=== PATIENT | male | born 1940 | race Caucasian/White ===

== ENCOUNTER 2018-08-31 23:47 | Inpatient (IN) ==
--- NOTE | 2018-09-01 01:06 | Emergency Department Note ---
Disposition Clinical Impression: Respiratory distress, SIRS (systemic inflammatory response syndrome) Pneumonia Qualifiers: Pneumonia type: due to unspecified organism Laterality: left Lung location: lower lobe of lung Qualified Code(s): J18.1 - Lobar pneumonia, unspecified organism Disposition: Admitted As Inpatient Condition: Critical Forms: ED Satisfaction Letter General Adult HPI - General Chief complaint: ED Fever Stated complaint: SoB/Fever Time Seen by Provider: 09/01/18 00:24 Source: family, EMS Limitations: altered mental status - History of Present Illness HPI Narrative: Pt was released from [facility] this afternoon after repair of leaking AAA graft. Daughter states he was talking, walking with a walker until they gave him a dose of Haldol on 08/01 and he has been in current unresponsive state since. He remains a full code. Has had numerous imaging studies over the last few weeks. Grew pseudomonas from his blood and urine per 's report. Released from [facility] to care home this afternoon. Last dose of Zosyn 2100. Sent here by ECF dt apparent clinical deterioration. Family states he is at his baseline mental status (new baseline since 08/01), no new neuro sx. they are insistent that he not be sent back to [facility], and seem to not want him to be sent back to the care home he came from today. Pain Scale: 0 - Related Data Home Medications Medication Instructions Recorded Confirmed Adalimumab [Humira] 40 mg SQ PER PKG DI 10/09/17 10/09/17 Apixaban [Eliquis] 10 mg PO BID 10/09/17 10/09/17 Atorvastatin [Lipitor] 10 mg PO HS 10/09/17 10/09/17 Cholecalciferol (Vitamin D3) 2,000 unit PO DAILY 10/09/17 10/09/17 [Vitamin D] Leflunomide [Arava] 10 mg PO DAILY 10/09/17 10/09/17 Lisinopril-HCTZ 10-12.5 [Prinzide 2 each PO DAILY 10/09/17 10/09/17 10-12.5] Metformin HCl [Fortamet] 500 mg PO BID 10/09/17 10/09/17 Metoprolol Tartrate [Lopressor] 25 mg PO BID 10/09/17 10/09/17 Multivit-Min/Iron Fum/Folic AC 1 each PO DAILY 10/09/17 10/09/17 [Qcxea-Aujzblf-Aegnykqe Tablet] NIFEdipine [Adalat cc] 90 mg PO DAILY 10/09/17 10/09/17 [place]-3/Dha/Epa/Fish Oil [Fish Oil 1 each PO DAILY 10/09/17 10/09/17 1,000 mg Softgel] Tamsulosin HCl [Flomax] 0.4 mg PO DAILY 10/09/17 10/09/17 cloNIDine HCl [CloNIDine HCl] 1.5 tab PO BID 10/09/17 10/09/17 predniSONE [PredniSONE] 7.5 mg PO DAILY 10/09/17 10/09/17 Allergies Allergy/AdvReac Type Severity Reaction Status Date / Time sulfamethoxazole Allergy See Verified 08/01/18 08:07 [From ] Comments trimethoprim [From ] Allergy See Verified 08/01/18 08:07 Comments morphine AdvReac See Verified 09/01/18 00:00 Comments Limitations: ROS unobtainable due to patients medical condition Past Medical History - Past Medical History Medical history: Reports: arthritis, DVT, diabetes, hypertension, other Surgical history: Reports: appendectomy, other (AAA repair) Psychiatric history: Reports: no psych history - Social History Smoking Status: Former smoker Smokeless Tobacco Status: No Alcohol use: Reports: none Drug use: Reports: none Physical Exam Vital signs noted please see nurse's notes. Gen.: Well-developed, ill patient lying in bed who is tahcypneic and not responsive. Head: Atraumatic, normocephalic. Eyes: Sclerae anicteric. ENT: Mucous membranes moist. Denitition poor. Heart: Tachycardic and regular without appreciable murmur. Neck: Tracheostomy with significant amount of yellowish output. RT called for saini ctioning. Lungs: Significant tachypnea is present. Coarse breath sounds b/l. Abdomen: Soft, no apparent tenderness, nondistended, no guarding or peritoneal signs. G-tube in place. Skin: Warm and dry. Neurologic: Unresonsive. Minimal movement of right hand, no movement of other extremities, baseline since 08/01 per family. Musculoskeletal: Diffuse peripheral edema. No signs of trauma or DVT. - General Limitations: altered mental status Course Vital Signs Temperature 98.4 F 09/01/18 00:00 Pulse Rate 94 09/01/18 00:00 Respiratory Rate 24 09/01/18 00:00 Blood Pressure 129/66 09/01/18 00:00 O2 Sat by Pulse Oximetry 97 09/01/18 00:00 Temperature 98.4 F 09/01/18 00:00 Pulse Rate 93 09/01/18 01:43 Respiratory Rate 28 09/01/18 01:43 Blood Pressure 136/71 09/01/18 01:43 O2 Sat by Pulse Oximetry 95 09/01/18 01:43 Oxygen Delivery Oxygen Delivery Trach Mask Medical Decision Making - Lab Data Result diagrams: 09/01/18 01:44 Lab Results 09/01/18 09/01/18 09/01/18 Range/Units 01:44 01:44 01:45 WBC 10.8 (4.3-11.1) K/mcL RBC 3.22 L (4.19-5.50) M/mcL Hgb 9.4 L (12.9-16.9) g/dL Hct 30.0 L (37.5-50.1) % MCV 93.2 (83.0-100.0) fL MCH 29.2 (28.0-33.3) pg MCHC 31.3 L (31.6-35.5) g/dL RDW 15.0 H (11.5-14.5) % Plt Count 249 (140-400) K/mcL MPV 9.6 (9.4-12.4) fL Immature Gran % 0.7 (0-4) % Seg Neutrophils % 77.6 % Lymphocytes % 9.4 % Monocytes % 9.6 % Eosinophils % 2.1 % Basophils % 0.6 % Neutrophils # 8.4 (1.6-8.9) K/mcL Lymphocytes # 1.0 (0.6-4.6) K/mcL Monocytes # 1.0 (0.0-1.3) K/mcL Eosinophils # 0.2 (0.0-0.6) K/mcL Basophils # 0.1 (0.0-0.2) K/mcL Lactic Acid 0.7 (0.5-2.2) mmol/L Urine Color Yellow (Yellow) Urine Clarity Cloudy A (Clear) Urine pH 6.0 (5.0-8.0) pH Units Ur Specific [place] 1.018 (1.010-1.025) Urine Protein 100 H (Neg-Trace) mg/dL Urine Glucose (UA) Normal (Normal) mg/dL Urine Ketones Negative (Negative) mg/dL Urine Blood Large H (Negative) Urine Nitrite Negative (Negative) Urine Bilirubin Negative (Negative) Urine Urobilinogen Normal (Normal) mg/dL Ur Leukocyte Esterase Moderate H (Negative) - EKG Data EKG #1 EKG attestation: Yes I reviewed and interpreted this EKG. EKG shows normal: sinus rhythm (rate 92, first degree AVB, mild QT prolongation. Two PVCs on EKG strip. No acute ischemia. )
[2018-09-01 02:01] LABS: Bilirubin,Urine Negative (Negative); Blood,Urine Large (Negative); Clarity,Urine Cloudy (Clear); Color,Urine Yellow (Yellow); Glucose,Urine (UA) Normal (Normal); Ketones,Urine Negative (Negative); Leukocyte Esterase,Urine Moderate (Negative); Nitrite,Urine Negative (Negative); Protein,Urine 100 mg/dL (Neg-Trace); Specific Gravity,Urine 1.018 (1.010-1.025); Urobilinogen,Urine Normal (Normal)
[2018-09-01 02:03] LABS: Bacteria,Urine None Seen per hpf (None-Few); Hyaline Casts,Urine None Seen per lpf (None-Few); RBC,Urine TNTC per hpf (0-3); Squamous Epithelial Cell,Urine Many per lpf (None-Few); WBC,Urine 15-30 per hpf (0-3)
[2018-09-01 02:03] LABS: Eosinophils % 2.1 %; Hemoglobin 9.4 g/dL (12.9-16.9); Immature Granulocytes % 0.7 % (0-4); Lymphocytes % 9.4 %; Mean Corpuscular HGB Conc 31.3 g/dL (31.6-35.5); Mean Corpuscular Hemoglobin 29.2 pg (28.0-33.3); Mean Corpuscular Volume 93.2 fL (83.0-100.0); Mean Platelet Volume 9.6 fL (9.4-12.4); Monocytes % 9.6 %; Platelet Count 249 K/mcL (140-400); Red Blood Count 3.22 M/mcL (4.19-5.50); Segmented Neutrophils % 77.6 %
[2018-09-01 02:04] LABS: Basophils # 0.1 K/mcL (0.0-0.2); Basophils % 0.6 %; Eosinophils # 0.2 K/mcL (0.0-0.6); Neutrophils # 8.4 K/mcL (1.6-8.9)
[2018-09-01] MEDS ORDERED: Levofloxacin 750 MG/150 ML 750 MG/150 ML BAG IVPB ONE (02:11)
[2018-09-01 02:20] LABS: Albumin 2.7 g/dL (3.5-5.7); Albumin/Globulin Ratio 0.8 (1.1-2.2); Bilirubin,Direct 0.2 mg/dL (0.0-0.2); Bilirubin,Indirect 0.3 mg/dL (0.0-1.2); Bilirubin,Total 0.5 mg/dL (0.3-1.0); Calcium 8.4 mg/dL (8.6-10.3); Globulin 3.5 g/dL (2.4-3.5); Magnesium 2.4 mg/dL (1.6-2.6); Potassium 3.5 mEq/L (3.5-5.1); Total Protein 6.2 g/dL (6.4-8.9)
[2018-09-01] MEDS ORDERED: Ondansetron 4 MG/2 ML VIAL IVP PRN (08:21)
[2018-09-01] MEDS ORDERED: Naloxone 0.4 MG/ML INJ IVP PRN (08:21)
--- NOTE | 2018-09-01 08:59 | Internal Med History&Physical ---
Date of Encounter: 09/01/18 Time of Encounter: 08:00 Internal Medicine - H&P: HPI Chief complaint: Altered mental status Admitted From: Long-term Nursing Facility Plans for Post Hospital Care: Transfer Strategy Consultant Care History of present illness: History is limited due to pt's clinical condition. Information was obtained from chart review and discussing with ED physician who saw the pt overnight. Mr. Busby is a 77 year old male, discharged to ECF from [facility] yesterday after being treated for leaking AAA graft complicated by pseudomonal infection, who presented to the ED with AMS. He is on trach collar and PEG tube feeding. His daughter states that patient was given Haldol at the nursing facility which seemed to be the triggering event. SInce then, patient was not responding appropriately and was breathing rapidly. No documented fever at the shelter. Patient is supposed to be on Zosyn at the ECF for pseudomonal infection. In the ED, he was afebrile and hemodynamically is stable but was breathing at the rate of 24-28. Workup showed borderline white blood cell count of 10.8, creatinine 1.6 which appears to be close to his baseline, and normal lactic acid. Urinalysis was positive for leukocyte esterase. CXR revealed new L lower airspace consolidation. There was a discussion on whether pt will need to be transferred to [facility] which family declined. Patient was started on vancomycin and Levaquin and admitted for further management. Past Med Surg Social Fam HX - Past Medical History Medical history: arthritis, DVT, diabetes, hypertension, other Additional medical history: AAA repair Psychiatric history: no psych history - Past Surgical History Surgical History: appendectomy, other (AAA repair) Additional surgical history: appy, AAA aneurysm repair - Social History Smoking Status: Former smoker Smokeless Tobacco Status: No Alcohol use: none Drug use: none - Additional Family History Additional family history: Unable to obtain due to his mental status Internal Medicine - H&P: Meds Abatacept [Orencia] 125 mg SQ QWEEK 09/01/18 [History] Alendronate Sodium 70 mg PO QWEEK 09/01/18 [History] Aspirin 81 mg PO DAILY 09/01/18 [History] Atorvastatin [Lipitor] 80 mg PO HS 09/01/18 [History] Carvedilol [Coreg] 25 mg PO BID 09/01/18 [History] Cholecalciferol (Vitamin D3) [Vitamin D] 2,000 unit PO DAILY 09/01/18 [History] Docusate [Colace] 100 mg GTUBE BID 09/01/18 [History] Esomeprazole Magnesium [Nexium] 40 mg PO DAILY 09/01/18 [History] Fluticasone Furoate [Arnuity Ellipta] 50 mcg IH BID 09/01/18 [History] Leflunomide [Arava] 10 mg PO DAILY 09/01/18 [History] Lisinopril-HCTZ 20-12.5 [Prinzide 20-12.5] 1 each PO DAILY 09/01/18 [History] Loratadine [Allergy Relief] 10 mg PO DAILY 09/01/18 [History] Modafinil [Provigil] 100 mg PO DAILY 09/01/18 [History] NIFEdipine [Nifedipine ER] 60 mg PO DAILY 09/01/18 [History] Nut.tx.impaired Renal Fxn,Soy [Nepro Carb Steady] 09/01/18 [History] Nystatin [Nystatin Suspension] 100,000 units PO QID 09/01/18 [History] [place]-3 Acid Ethyl Esters [Triklo] 1 gm PO BID 09/01/18 [History] Omeprazole [PriLOSEC] 40 mg PO DAILY 09/01/18 [History] Piperacillin Sodium/Tazobactam [Piperacil-Tazobact 4.5 gm Vial] 4.5 gm IV Q8HR 09/01/18 [History] amLODIPine [Norvasc] 10 mg PO DAILY 09/01/18 [History] cloNIDine HCl [CloNIDine HCl] 0.1 mg PO BID 09/01/18 [History] glipiZIDE [Glucotrol] 5 mg PO BID 09/01/18 [History] Allergy/AdvReac Type Severity Reaction Status Date / Time sulfamethoxazole Allergy See Verified 08/01/18 08:07 [From ] Comments trimethoprim [From ] Allergy See Verified 08/01/18 08:07 Comments morphine AdvReac See Verified 09/01/18 00:00 Comments ROS unobtainable: due to mental status All Systems PM: A 10-system review of systems was performed and is negative for pertinent findings except as documented above in the HPI. - Constitutional Vitals: Temp Pulse Resp BP Pulse Ox 99.2 F 88 28 142/76 97 09/01/18 02:58 09/01/18 08:30 09/01/18 08:30 09/01/18 08:30 09/01/18 08:30 Exam: General: Lethargic, moans to painful stimuli, mildly tachypneic HEENT: pupils sluggish but equal, round and reactive. Cardiovascular:Normal S1 & S2, No JVD. Pulse regular. Lungs: Diminished breath sound in left lower zone Abdomen:Soft, non-tender, no rigidity. PEG site appears unremarkable Extremities:No deformity or swelling Neurological: unable to examine due to mental status Skin: Normal color, no rash, no lesions. Pulses:Carotid and radial pulses normal +2. Rest of the physical exam is non contributory Internal Med - H&P Results - Labs CBC & Chem 7: 09/01/18 01:44 09/01/18 01:44 Labs: Short CBC 09/01/18 Range/Units 01:44 WBC 10.8 (4.3-11.1) K/mcL Hgb 9.4 L (12.9-16.9) g/dL Hct 30.0 L (37.5-50.1) % Plt Count 249 (140-400) K/mcL Neutrophils # 8.4 (1.6-8.9) K/mcL BMP 09/01/18 01:44 Sodium 136 Potassium 3.5 Chloride 99 Carbon Dioxide 27 BUN 66 H Creatinine 1.60 H Glucose 128 H Calcium 8.4 L Liver Function 09/01/18 Range/Units 01:44 Total Bilirubin 0.5 (0.3-1.0) mg/dL Direct Bilirubin 0.2 (0.0-0.2) mg/dL AST 25 (13-39) Units/L ALT 22 (7-52) Units/L Alkaline Phosphatase 78 (34-104) Units/L Albumin 2.7 L (3.5-5.7) g/dL Urine 09/01/18 Range/Units 01:45 Urine Color Yellow (Yellow) Urine Clarity Cloudy A (Clear) Urine pH 6.0 (5.0-8.0) pH Units Ur Specific [place] 1.018 (1.010-1.025) Urine Protein 100 H (Neg-Trace) mg/dL Urine Glucose (UA) Normal (Normal) mg/dL - Impressions ITS Impressions Chest X-Ray 09/01/18 01:01 IMPRESSION: 1. Left lower lobe airspace consolidation consistent with pneumonia. Follow-up imaging recommended to ensure resolution. 2. Hypoinflated lungs. 3. Mild cardiomegaly. D/ / Angelica Shearer MD / Angelica Shearer MD Interpreting Provider: Angelica Shearer MD - Assessment and Plan (1) Pneumonia Current Visit: Yes Status: Acute Assessment and plan: Presented with encephalopathy, x-ray finding consistent with left lower lobe PNA recently discharged from [facility] after being treated for leaking AAA graft and pseudomonal infection and was sent to shelter on IV Zosyn started on vanc/levaquin, will continue zosyn as well for extended pseudomonal coverage until cultures finalize strep/legionella ag blood/sputum cultures on 4L through trach collar, unsure of baseline. Wean as tolerated Qualifiers: Pneumonia type: due to unspecified organism Laterality: left Lung location: lower lobe of lung Qualified Code(s): J18.1 - Lobar pneumonia, unspecified organism (2) Acute metabolic encephalopathy Current Visit: Yes Status: Acute Assessment and plan: Likely due to the above (3) CKD (chronic kidney disease) stage 3, GFR 30-59 ml/min Current Visit: Yes Status: Chronic Assessment and plan: Creatinine appears to be at his baseline Avoid nephrotoxins Renally adjusted antibiotic dosing (4) S/P AAA (abdominal aortic aneurysm) repair Current Visit: Yes Status: Chronic Assessment and plan: s/p recent repair of leaking AAA graft obtain old records from [facility] (5) Hypertension Current Visit: Yes Status: Chronic Assessment and plan: resume norvasc and Coreg, holding off on nifeidpine (unsure why he is on both CCBs) will also monitor off prinzide and clonidine Qualifiers: Hypertension type: essential hypertension Qualified Code(s): I10 - Essential (primary) hypertension (6) Diabetes Current Visit: Yes Status: Chronic Assessment and plan: On glipizide at home, hold Dietitian consult for resuming PEG feeding low dose sliding scale Qualifiers: Diabetes mellitus type: type 2 Diabetes mellitus terminal makeup operator insulin use: unspecified terminal makeup operator insulin use status Diabetes mellitus complication status: with unspecified complications Qualified Code(s): E11.8 - Type 2 diabetes mellitus with unspecified complications (7) DVT prophylaxis Current Visit: Yes Status: Acute Assessment and plan: Sub-cutaneous heparin - Time Spent With Patient Total time spent is greater than 50% in coordination of care (as documented) at patient's floor/unit and/or counseling patient: Greater than 35 minutes
[2018-09-01] MEDS ORDERED: OMEGA ACID ETHYL ESTERS PO SCH (09:00)
[2018-09-01] MEDS ORDERED: Dextrose 4 GM Chewable Tablets PO PRN ×2 (09:08)
[2018-09-01] MEDS ORDERED: *HR* Dextrose 50 % in Water (Syg) 50 ML SYRINGE IVP PRN (09:08)
[2018-09-01] MEDS ORDERED: D5% in Water 1,000 ML IVC PRN (09:08)
[2018-09-01] MEDS: Piperacillin/Tazobactam 3.375 GM in 0.9 % Sodium Chloride Mini Bag 100 ML IVPB SCH ×2 (09:08→17:29)
[2018-09-01] MEDS: Aspirin 81 MG TAB.CHEW PO SCH (09:08)
[2018-09-01] MEDS ORDERED: Dextrose Gel 15 GM/37.5 ML TUBE PO PRN ×2 (09:08)
[2018-09-01] MEDS: Loratadine 10 MG TABLET PO SCH (09:09)
--- NOTE | 2018-09-01 11:52 | Pulmonology Consult Note ---
Date of Encounter: 09/01/18 Time of Encounter: 11:51 Past Med Surg Social Fam HX - Past Medical History Medical history: arthritis, DVT, diabetes, hypertension, other Additional medical history: AAA repair Psychiatric history: no psych history - Past Surgical History Surgical History: appendectomy, other (AAA repair) Additional surgical history: appy, AAA aneurysm repair - Social History Smoking Status: Former smoker Smokeless Tobacco Status: No Alcohol use: none Drug use: none Medications and Allergies Abatacept [Orencia] 125 mg SQ QWEEK 09/01/18 [History] Alendronate Sodium 70 mg PO QWEEK 09/01/18 [History] Aspirin 81 mg PO DAILY 09/01/18 [History] Atorvastatin [Lipitor] 80 mg PO HS 09/01/18 [History] Carvedilol [Coreg] 25 mg PO BID 09/01/18 [History] Cholecalciferol (Vitamin D3) [Vitamin D] 2,000 unit PO DAILY 09/01/18 [History] Docusate [Colace] 100 mg GTUBE BID 09/01/18 [History] Esomeprazole Magnesium [Nexium] 40 mg PO DAILY 09/01/18 [History] Fluticasone Furoate [Arnuity Ellipta] 50 mcg IH BID 09/01/18 [History] Leflunomide [Arava] 10 mg PO DAILY 09/01/18 [History] Lisinopril-HCTZ 20-12.5 [Prinzide 20-12.5] 1 each PO DAILY 09/01/18 [History] Loratadine [Allergy Relief] 10 mg PO DAILY 09/01/18 [History] Modafinil [Provigil] 100 mg PO DAILY 09/01/18 [History] NIFEdipine [Nifedipine ER] 60 mg PO DAILY 09/01/18 [History] Nut.tx.impaired Renal Fxn,Soy [Nepro Carb Steady] 09/01/18 [History] Nystatin [Nystatin Suspension] 100,000 units PO QID 09/01/18 [History] [place]-3 Acid Ethyl Esters [Triklo] 1 gm PO BID 09/01/18 [History] Omeprazole [PriLOSEC] 40 mg PO DAILY 09/01/18 [History] Piperacillin Sodium/Tazobactam [Piperacil-Tazobact 4.5 gm Vial] 4.5 gm IV Q8HR 02/27/19 [History] amLODIPine [Norvasc] 10 mg PO DAILY 09/01/18 [History] cloNIDine HCl [CloNIDine HCl] 0.1 mg PO BID 09/01/18 [History] glipiZIDE [Glucotrol] 5 mg PO BID 09/01/18 [History] Allergy/AdvReac Type Severity Reaction Status Date / Time sulfamethoxazole Allergy See Verified 08/01/18 08:07 [From ] Comments trimethoprim [From ] Allergy See Verified 08/01/18 08:07 Comments morphine AdvReac See Verified 09/01/18 00:00 Comments ROS unobtainable: due to mental status All Systems: The remainder of the systems were reviewed and are negative Physical Examination Vital Signs: Vital Signs, Last 4 Hours Pulse Resp BP Pulse Ox 09/01/18 11:06 90 141/74 95 09/01/18 09:25 90 26 132/72 96 09/01/18 08:30 88 28 142/76 97 Results - Laboratory Findings CBC and BMP: 09/01/18 01:44 09/01/18 01:44 Abnormal lab findings: Abnormal lab results RBC 3.22 M/mcL (4.19-5.50) L 09/01/18 01:44 Hgb 9.4 g/dL (12.9-16.9) L 09/01/18 01:44 Hct 30.0 % (37.5-50.1) L 09/01/18 01:44 MCHC 31.3 g/dL (31.6-35.5) L 09/01/18 01:44 RDW 15.0 % (11.5-14.5) H 09/01/18 01:44 BUN 66 mg/dL (8-23) H 09/01/18 01:44 Creatinine 1.60 mg/dL (0.70-1.30) H 09/01/18 01:44 Est GFR ( Amer) 51 (> 60) L 09/01/18 01:44 Est GFR (Non-Af Amer) 42 (> 60) L 09/01/18 01:44 BUN/Creatinine Ratio 41 (6-26) H 09/01/18 01:44 Glucose 128 mg/dL (70-105) H 09/01/18 01:44 Calculated Osmolality 303 (280-300) H 09/01/18 01:44 Calcium 8.4 mg/dL (8.6-10.3) L 09/01/18 01:44 Serum Total Protein 6.2 g/dL (6.4-8.9) L 09/01/18 01:44 Albumin 2.7 g/dL (3.5-5.7) L 09/01/18 01:44 Albumin/Globulin Ratio 0.8 (1.1-2.2) L 09/01/18 01:44 Urine Clarity Cloudy (Clear) A 09/01/18 01:45 Urine Protein 100 mg/dL (Neg-Trace) H 09/01/18 01:45 Urine Blood Large (Negative) H 09/01/18 01:45 Ur Leukocyte Esterase Moderate (Negative) H 09/01/18 01:45 Urine Microscopic RBC TNTC per hpf (0-3) H 09/01/18 01:45 Urine Microscopic WBC 15-30 per hpf (0-3) H 09/01/18 01:45 Ur Squamous Epith Cells Many per lpf (None-Few) H 09/01/18 01:45 Ur Culture Indicated? NO. (NO) A 09/01/18 01:45 - Microbiology Findings Microbiology Findings: Microbiology, Last 48 Hours 09/01/18 06:14 Sputum Culture - Final Sputum 09/01/18 01:40 Blood Culture - Preliminary Peripheral Venipuncture Culture is incubating and being continuously monitored for growth. Final report to follow. 09/01/18 01:44 Blood Culture - Preliminary Peripheral Venipuncture Culture is incubating and being continuously monitored for growth. Final report to follow. - Clinical Findings Intake & Output: Intake & Output 08/31/18 09/01/18 09/01/18 23:59 07:59 15:59 Intake Total 400 / 400 100 / 100 Balance 400 / 400 100 / 100 Weight 90.718 kg Consult Discharge Plan - Plan [facility]Primary Care Provider[facility] -
[2018-09-01] MEDS: Docusate Oral Soln 100 MG/10 ML UDC GTUBE SCH ×2 (12:50→21:07)
[2018-09-01] MEDS: Insulin LISPRO 300 UNITS/3 ML VIAL SQ SCH ×2 (12:50→17:55)
[2018-09-01] MEDS: FLUTICASONE FUROATE 50 MCG IH SCH ×2 (12:50→20:48)
[2018-09-01] MEDS: amLODIPine 5 MG TABLET PO SCH (12:59)
[2018-09-01] MEDS: Nystatin SUSP 5 ML UD.LIQ PO SCH ×4 (12:59→21:07)
[2018-09-01] MEDS: *HR* Heparin 5,000 UNIT/ML VIAL SQ SCH (17:57)
--- NOTE | 2018-09-01 20:23 | Electrocardiograph Report ---
[place] [id number] Test Date: 2018-09-01 Pat Name: Josh Busby Department: [id number] Room: 03 Gender: M Stud Driver: : 1940 Requested By: Basilio Porter Order Number: [id number] Reading MD: Lydia Cadet Measurements Intervals [place] Rate: 92 P: 10 RI: 215 QRS: -1 QRSD: 96 T: 89 QT: 395 QTc: 489 Interpretive Statements Sinus rhythm Multiform ventricular premature complexes Prolonged RI interval Borderline prolonged QT interval Electronically Signed On 09-01-2018 20:21:40 EST by Lydia Cadet
[2018-09-02] MEDS: Insulin LISPRO 300 UNITS/3 ML VIAL SQ SCH ×4 (01:09→18:12)
[2018-09-02] MEDS: Piperacillin/Tazobactam 3.375 GM in 0.9 % Sodium Chloride Mini Bag 100 ML IVPB SCH ×3 (02:07→18:10)
[2018-09-02 05:13] LABS: Basophils % 0.4 %; Eosinophils # 0.2 K/mcL (0.0-0.6); Eosinophils % 1.9 %; Hematocrit 26.4 % (37.5-50.1); Hemoglobin 8.2 g/dL (12.9-16.9); Immature Granulocytes % 1.3 % (0-4); Lymphocytes # 0.8 K/mcL (0.6-4.6); Lymphocytes % 7.9 %; Mean Corpuscular HGB Conc 31.1 g/dL (31.6-35.5); Mean Corpuscular Volume 93.3 fL (83.0-100.0); Mean Platelet Volume 9.4 fL (9.4-12.4); Monocytes # 0.9 K/mcL (0.0-1.3); Monocytes % 8.9 %; Neutrophils # 8.1 K/mcL (1.6-8.9); Platelet Count 214 K/mcL (140-400); Red Blood Count 2.83 M/mcL (4.19-5.50); Red Cell Distribution Width 14.7 % (11.5-14.5); Segmented Neutrophils % 79.6 %
[2018-09-02] MEDS: *HR* Heparin 5,000 UNIT/ML VIAL SQ SCH ×2 (05:17→18:11)
[2018-09-02 05:34] LABS: BUN/Creatinine Ratio 44 (6-26); Blood Urea Nitrogen 59 mg/dL (8-23); Calcium 8.1 mg/dL (8.6-10.3); Carbon Dioxide 28 mEq/L (23-29); Chloride 103 mEq/L (98-107); Glucose 153 mg/dL (70-105); Magnesium 2.3 mg/dL (1.6-2.6); Osmolality,Calculated 308 (280-300); Phosphorous 3.7 mg/dL (2.7-4.5); Potassium 3.6 mEq/L (3.5-5.1); Sodium 139 mEq/L (136-145); eGFR For Non-African Americans 52 (> 60)
[2018-09-02] MEDS: Docusate Oral Soln 100 MG/10 ML UDC GTUBE SCH ×2 (08:25→20:26)
[2018-09-02] MEDS: Nystatin SUSP 5 ML UD.LIQ PO SCH ×4 (08:25→20:26)
[2018-09-02] MEDS: Aspirin 81 MG TAB.CHEW PO SCH (08:26)
[2018-09-02] MEDS: (Leflunomide [Arava] 10 MG) PO SCH (08:26)
[2018-09-02] MEDS: Loratadine 10 MG TABLET PO SCH (08:26)
[2018-09-02] MEDS: amLODIPine 5 MG TABLET PO SCH (08:26)
[2018-09-02] MEDS: FLUTICASONE FUROATE 50 MCG IH SCH (08:26)
--- NOTE | 2018-09-02 09:21 | Internal Med Progress Note ---
<Kya Hinojosa R - Last Filed: 09/02/18 14:21> Hospitalist Progress Note - Encounter Date of Encounter: 09/02/18 Time of Encounter: 09:21 - Subjective Interval History: Pt without any events since admission. Sputum cx negative. BCx pending without growth to date. Currently on vanc, zosyn and levaquin for pseudomonal and MRSA c overage - consulting infectious disease for better abx management as Levaquin is not the best option for this patient s/p AAA repair with recent leakage. - Exam Vitals: Temp Pulse Resp BP Pulse Ox 98.1 F 79 20 163/84 98 09/02/18 06:53 09/02/18 08:00 09/02/18 08:00 09/02/18 08:00 09/02/18 08:00 Exam: Constitutional - no longer tachypnic. appears more comfortable. HEENT - PERRL. Neck - No palpable LAD Cardio - RRR. No audible murmurs. Respiratory - Rhonchi in LLL. No audible wheezing or rales in other lung [place]. Abdomen - soft, nontender to palpation. No rebound, guarding or rigidity. Extremities - No edema of extremities. Equal pulses. Skin - No visible rash. Warm and dry. Neuro - alert but not able to assess orientation. - Assessment and Plan (1) Pneumonia Current Visit: Yes Status: Acute Assessment and Plan: Presented to ED with change in mental status after DC from [facility] to an ECF Current treatment for pseudomonas after AAA repair with zosyn CXR in ER showed LLL pneumonia VS wnl, no signs of sepsis on admission Vanc and zosyn added Day 2 abx Strep/legionella ag negative BCx pending, sputum cx negative Currently on 4L via trach ID consulted due to abx coverage - Levaquin not optimal for pt s/p AAA graft (2) Acute metabolic encephalopathy Current Visit: Yes Status: Acute Assessment and Plan: AMS likely secondary to pneumonia vs hypercapnia/hypoxia Continue to monitor status (3) S/P AAA (abdominal aortic aneurysm) repair Current Visit: Yes Status: Chronic Assessment and Plan: Recent repair of AAA graft that was leaking Subsequent pseudomonal infection Currently on vanc, zosyn and levaquin ID consulted for better abx recs (4) CKD (chronic kidney disease) stage 3, GFR 30-59 ml/min Current Visit: Yes Status: Chronic Assessment and Plan: Creatinine 1.33 which appears to be at baseline Renally dose meds Avoid nephrotoxins (5) Diabetes Current Visit: Yes Status: Chronic Assessment and Plan: Hold home meds Low dose SSI Resume PEG feedings (6) Hypertension Current Visit: Yes Status: Chronic Assessment and Plan: Resume norvasc and coreg Holding other home BP meds Currently normotensive Continue to monitor and resume clonidine if needed DVT Prophylaxis: SQ Heparin - Time Spent with Patient Total time spent is greater than 50% in coordination of care (as documented) at patient's floor/unit and/or counseling patient: Internal Medicine: Result - Labs CBC & Chem 7: 09/02/18 04:44 09/02/18 04:44 Labs: Short CBC 09/02/18 Range/Units 04:44 WBC 10.2 (4.3-11.1) K/mcL Hgb 8.2 L (12.9-16.9) g/dL Hct 26.4 L (37.5-50.1) % Plt Count 214 (140-400) K/mcL Neutrophils # 8.1 (1.6-8.9) K/mcL BMP 09/02/18 04:44 Sodium 139 Potassium 3.6 Chloride 103 Carbon Dioxide 28 BUN 59 H Creatinine 1.33 H Glucose 153 H Calcium 8.1 L Consult Discharge Plan - Plan [facility]errals: [facility]Primary Care Provider[facility] - <Napoleon Yeager - Last Filed: 09/02/18 17:06> Hospitalist Progress Note - Encounter Date of Encounter: 09/02/18 - Exam Vitals: Temp Pulse Resp BP Pulse Ox 98.3 F 74 20 137/62 98 09/02/18 15:32 09/02/18 16:00 09/02/18 16:00 09/02/18 16:00 09/02/18 16:00 - Assessment and Plan (1) Sepsis Current Visit: Yes Status: Acute (2) Pneumonia Current Visit: Yes Status: Acute (3) S/P AAA (abdominal aortic aneurysm) repair Current Visit: Yes Status: Chronic (4) Hypertension Current Visit: Yes Status: Chronic (5) DVT prophylaxis Current Visit: Yes Status: Acute (6) Acute metabolic encephalopathy Current Visit: Yes Status: Acute (7) Diabetes Current Visit: Yes Status: Chronic (8) CKD (chronic kidney disease) stage 3, GFR 30-59 ml/min Current Visit: Yes Status: Chronic - Time Spent with Patient Total time spent is greater than 50% in coordination of care (as documented) at patient's floor/unit and/or counseling patient: Internal Medicine: Result - Labs CBC & Chem 7: 09/02/18 04:44 09/02/18 04:44 Labs: Short CBC 09/02/18 Range/Units 04:44 WBC 10.2 (4.3-11.1) K/mcL Hgb 8.2 L (12.9-16.9) g/dL Hct 26.4 L (37.5-50.1) % Plt Count 214 (140-400) K/mcL Neutrophils # 8.1 (1.6-8.9) K/mcL BMP 09/02/18 04:44 Sodium 139 Potassium 3.6 Chloride 103 Carbon Dioxide 28 BUN 59 H Creatinine 1.33 H Glucose 153 H Calcium 8.1 L - Attending Attestation I examined this patient and my medical decision-making was reviewed with the Resident Physician on 09/02/18. I agree with the documented findings, disposition and treatment plan as described except to the extent set forth below. Mr Busby is currently admitted for pneumonia and acute metabolic encephalopathy. He remains moderate to high risk due to potential for worsening clinical status. Mr Busby is resting in bed. He is being evaluated by ID. No current fever or chills. Isolation discontinues - pseudomonas is pansensitive. Exam alert Comfortable in bed Mucus membranes dry Heart not tachy Diminished breath sounds. Rhonchi present Abd soft No rash noted. I/P 1. Sepsis related to pneumonia - hx of pseudomonas - Improving. Appreciate ID input. Continue Zosyn and Vanc 2. Pneumonia 3. RUE swelling - r/o DVT 4 Acute metabolic encephalopathy - monitoring. Prior work up negative 5. DM 6. HTN Further diagnoses and plan as above. 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 (6) Hypertension Qualifiers: Hypertension type: essential hypertension Qualified Code(s): I10 - Essential (primary) hypertension <Napoleon Yeager - Last Filed: 09/02/18 17:06> (1) Sepsis Qualifiers: Sepsis type: Pseudomonas Qualified Code(s): A41.52 - Sepsis due to Pseudomonas (2) Pneumonia Qualifiers: Pneumonia type: due to Pseudomonas Laterality: left Lung location: lower lobe of lung Qualified Code(s): J15.1 - Pneumonia due to Pseudomonas (4) Hypertension Qualifiers: Hypertension type: essential hypertension Qualified Code(s): I10 - Essential (primary) hypertension (7) Diabetes Qualifiers: Diabetes mellitus type: type 2 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
--- NOTE | 2018-09-02 15:29 | Infectious Disease Consult ---
Date of Encounter: 09/02/18 Time of Encounter: 15:12 Assessment and Plan (1) Sepsis Status: Acute Assessment and plan: The patient had 2 sepsis criteria on admission. Likely secondary to pneumonia versus right upper extremity cellulitis. Improved. White blood cell count remains normal. Tachycardia and tachypnea Resolved. Blood cultures drawn 09/01/18 are pending 2 sets. Recommendations: Await blood cultures. Recommend DVT study of the right upper extremity. Check respiratory infectious panel. Repeat sputum culture. Check MRSA screen. Continue vancomycin IV. Pharmacy to dose. Goal trough approximately 15. Continue Zosyn 3.375 g IV every 8 hours. Discontinue Levaquin. Duration of treatment depends on the clinical picture. Monitor renal function and for drug toxicity and dose adjust antibiotics. Discontinue contact and droplet precautions. Pseudomonas isolated at [facility] was pansensitive. Qualifiers: Sepsis type: Pseudomonas Qualified Code(s): A41.52 - Sepsis due to Pseudomonas (2) Pneumonia Status: Acute Assessment and plan: Causative organism: Unclear. Previous BAL and sputum cultures at [facility] were positive for pseudomonas and MSSA. Chest x-ray shows a left lower lobe consolidation consistent with pneumonia. Urinary antigen tests were negative. Sputum culture was contaminated. Currently on vancomycin, Zosyn, and Levaquin. Qualifiers: Pneumonia type: due to Pseudomonas Laterality: left Lung location: lower lobe of lung Qualified Code(s): J15.1 - Pneumonia due to Pseudomonas (3) Cellulitis Status: Suspected Assessment and plan: Location: Right upper extremity. Cellulitis versus DVT versus other. The patient did have an IV in his arm and was receiving IV antibiotics there prior to admission. Consider DVT study. If fails to improve with IV antibiotics, consider CT of the right upper extremity. Currently on vancomycin and Zosyn. Qualifiers: Site of cellulitis: extremity Laterality: right Qualified Code(s): L03.113 - Cellulitis of right upper limb (4) Acute kidney injury Status: Acute Assessment and plan: Likely secondary to sepsis. Unsure baseline. Continue to trend. Monitor renal function and does just antibiotics. Avoid nephrotoxins as able. (5) Acute metabolic encephalopathy Status: Acute Assessment and plan: Ongoing for the last month. Extensive workup at [facility] including MRI, EEG, and CT were negative for etiology. CVA versus anoxic brain injury versus other. Continue to monitor closely. (6) Bacteremia Status: Resolved Assessment and plan: Blood cultures drawn 2/23/19 at [facility] were +2 out of 2 sets for pansensitive pseudomonas. Repeat blood cultures drawn 08/31/18 are no growth to date. Was discharged to ECF on Zosyn 4.5 g IV every 8 hours. Currently on IV Levaquin and Zosyn. (7) CKD (chronic kidney disease) stage 3, GFR 30-59 ml/min Status: Chronic (8) Diabetes Status: Chronic Assessment and plan: Recommend strict glucose control per the primary team. Qualifiers: Diabetes mellitus type: type 2 Diabetes mellitus jail insulin use: with meterman use Diabetes mellitus complication status: with unspecified co mplications Qualified Code(s): E11.8 - Type 2 diabetes mellitus with unsp ecified complications; Z79.4 - custodial (current) use of insulin (9) Hypertension Status: Chronic Qualifiers: Hypertension type: essential hypertension Qualified Code(s): I10 - Essential (primary) hypertension (10) S/P AAA (abdominal aortic aneurysm) repair Status: Chronic Assessment and plan: Status post EVAR in 2013. Status post emergent endovascular repair of ruptured AAA with aortic cuff and right groin cutdown for delivery of device 08/01/18 at [facility]. Infectious Disease HPI - Data of Consult Patient: new to practice Consult date: 09/02/18 Requesting Physician: Napoleon Yeager DO Primary Care Provider: PCP [facility] - Consult Narrative Reason for consult: pneumonia, recent pseudomonal infection s/p AAA repair History of present illness: Mr. Busby is a 77 year old male with a past medical history of DVT, DM, HTN, AAA status post EVAR in 2013 with emergent endovascular repair of ruptured AAA with aortic cuff and right groin cut down for delivery of device 08/01/18 at [facility]. He was admitted to the hospital 09/01/18 respiratory distress, pneumonia, and sepsis. We are consulted 09/02/18 for antibiotic recommendations for recent Pseudomonas infection status post AAA repair. Briefly, the patient 77-year-old male with past medical history as stated above. The patient's mental status precludes his ability to provide me with any information leading up to the events of this hospitalization, therefore, most of the information is obtained from the medical record and his family history at the bedside. Apparently, the patient had emergent repair of a ruptured AAA back in July. Postop, he was doing well until postop day 2 when he became encephalopathic requiring emergent intubation and workup for stroke, which was negative. He underwent tracheostomy on 08/12/18. On 08/25/18 a PEG tube was placed. He was able to wean from the vent and transitioned to trach mask on 08/26/18. During his hospitalization, he was noted to have Pseudomonas bacteremia, pseudomonas UTI, and pseudomonas and MSSA pneumonia. He was discharged to a local extended care facility with a chronic indwelling Al catheter and rectal tube on 08/31/18 to complete a course of IV Zosyn. Upon arrival to the [facility], he was noted to be tachypneic and febrile and was transferred to our ER for evaluation. Upon arrival, he was afebrile. He was tachycardic and tachypneic. White blood cell count was normal. He had an acute kidney injury with a creatinine of 1.6. Lactic acid and LFTs were normal. Urinalysis appeared contaminated. Chest x-ray showed a left lower lobe pneumonia. Blood cultures were obtained 2 sets. He was started empirically on IV antibiotics and admitted to the hospital for further evaluation. Since admission, the patient has remained afebrile. Tachycardia and tachypnea have resolved. White blood cell counts remain normal. Acute kidney injury is improved. He continues to have some liquid stool per his rectal tube. Left groin access site wound culture has been obtained and is pending. Currently, he is on vancomycin, Levaquin, and Zosyn. We have been asked to evaluate and make further recommendations. During my exam today, the patient's family endorses a history as stated above. They tell me that he had a fever of 99 at the shelter and appeared to be in respiratory distress sitting transferred back to the ER. They tell me that since postop day 2, the patient has remained relatively unresponsive with minimal eye opening, but no purposeful movement of his extremities. The patient is unable to provide any review of systems information. CC: Napoleon Yeager, DO Past Med Surg Social Fam HX - Past Medical History Attestation: Yes The following information was validated with the patient. Source: old records reviewed, obtained from family, nursing notes reviewed Medical history: arthritis, DVT, diabetes, hypertension, other Additional medical history: AAA repair Psychiatric history: no psych history - Past Surgical History Surgical History: appendectomy, other Additional surgical history: appy, AAA aneurysm repair - Social History Smoking Status: Former smoker Smokeless Tobacco Status: No Alcohol use: none Drug use: none Occupational status: retired Current living situation: ECF Activity Level: Bed bound Recent Out of Country Travel Within the Last 8 Weeks: No Exposure or Possible Exposure to Illness During Travel: No Infectious Disease-CN:Meds Abatacept [Orencia] 125 mg SQ QWEEK 09/01/18 [History] Atorvastatin [Lipitor] 80 mg PO HS 09/01/18 [History] Carvedilol [Coreg] 25 mg PO BID 09/01/18 [History] Cholecalciferol (Vitamin D3) [Vitamin D] 2,000 unit PO DAILY 09/01/18 [History] Esomeprazole Magnesium [Nexium] 40 mg GTUBE DAILY 09/01/18 [History] Fluticasone Furoate [Arnuity Ellipta] 1 spr NS BID 09/01/18 [History] Leflunomide [Arava] 10 mg PO DAILY 09/01/18 [History] Loratadine [Allergy Relief] 10 mg PO DAILY 09/01/18 [History] Modafinil [Provigil] 100 mg GTUBE DAILY 09/01/18 [History] NIFEdipine [Nifedipine ER] 60 mg PO DAILY 09/01/18 [History] Nystatin [Nystatin Suspension] 500,000 units PO QID 09/01/18 [History] Nitro-3 Acid Ethyl Esters [Triklo] 1 gm PO BID 09/01/18 [History] Omeprazole [PriLOSEC] 40 mg PO DAILY 09/01/18 [History] Piperacillin Sodium/Tazobactam [Piperacil-Tazobact 4.5 gm Vial] 4.5 gm IV Q8HR 09/01/18 [History] RX: Alendronate Sodium 70 mg PO QWEEK 09/01/18 [History] RX: Aspirin 81 mg GTUBE DAILY 09/01/18 [History] RX: Docusate [Colace] 100 mg GTUBE BID 09/01/18 [History] RX: cloNIDine HCl [CloNIDine HCl] 0.1 mg PO BID 09/01/18 [History] amLODIPine [Norvasc] 10 mg PO DAILY 09/01/18 [History] glipiZIDE [Glucotrol] 5 mg PO BID 09/01/18 [History] Acetaminophen [Tylenol] 650 mg PO Q6H PRN 09/02/18 [History] Lisinopril/Hydrochlorothiazide [Zestoretic 20-25 mg Tablet] 1 tab PO DAILY 09/02/18 [History] Allergy/AdvReac Type Severity Reaction Status Date / Time sulfamethoxazole Allergy See Verified 08/01/18 08:07 [From ] Comments trimethoprim [From ] Allergy See Verified 08/01/18 08:07 Comments morphine AdvReac See Verified 09/01/18 00:00 Comments ROS unobtainable: due to mental status Exam - Constitutional Vitals: Temp Pulse Resp BP Pulse Ox 98.2 F 75 20 130/68 98 09/02/18 11:28 09/02/18 14:00 09/02/18 14:00 09/02/18 14:00 09/02/18 14:00 General appearance: average body habitus, no acute distress, no cooperative - Head Head exam: Present: atraumatic, normal inspection, normocephalic - Eye Eye exam: Present: normal appearance, PERRL Pupils: Present: normal accommodation Additional comments: Corneal reflex intact. Does not open eyes on commands. - ENT ENT exam: Present: mucous membranes moist Additional comments: Oral thrush noted. - Neck Neck exam: Present: normal inspection Additional comments: Tracheostomy midline. Small amount of thick yellow sputum noted in the suction canister. O2 via trach mask. - Respiratory Respiratory exam: Present: rhonchi (Scattered throughout). Absent: decreased breath sounds, rales, respiratory distress, wheezes - Cardiovascular Cardiovascular exam: Present: RRR, +S1, +S2 - GI/Abdominal GI/Abdominal exam: Present: normal bowel sounds. Absent: distended, tenderness Additional comments: Al catheter noted to be draining clear yellow urine. Rectal tube noted to be draining liquid brown stool. - Extremities Exam Extremities exam: Present: pedal edema (Trace bilateral lower extremities.). Absent: joint swelling, normal inspection (Erythema, edema, and warmth noted to the right upper extremity.), tenderness Additional comments: Left groin surgical site noted without evidence of infection. - Neurological Exam Neurological exam: Present: altered Additional comments: Unresponsive. Does not follow commands. - Expanded Neurological Exam Coma Scale Eye Opening: None Coma Scale Motor Response: Withdraws to Pain Coma Scale Verbal Response: None Coma Scale Total: 6 - Skin Skin exam: Present: dry, intact, normal color, warm Infectious Disease CN: Results - Labs CBC & Chem 7: 09/03/18 04:15 09/03/18 04:15 Cultures: Cultures 08/31/18 01:45 Legionella Antigen - Final Urine,[place] Streptococcus pneumoniae Antigen (M - Final 09/02/18 01:00 Wound Culture - Preliminary Groin Culture is incubating. 09/01/18 06:14 Sputum Culture - Final Sputum 09/01/18 01:40 Blood Culture - Preliminary Peripheral Venipuncture Culture is incubating and being continuously monitored for growth. Final report to follow. 09/01/18 01:44 Blood Culture - Preliminary Peripheral Venipuncture Culture is incubating and being continuously monitored for growth. Final report to follow. Serology: Serology 09/01/18 Range/Units 01:45 Urine Color Yellow (Yellow) Urine Clarity Cloudy A (Clear) Urine pH 6.0 (5.0-8.0) pH Units Ur Specific [place] 1.018 (1.010-1.025) Urine Protein 100 H (Neg-Trace) mg/dL Urine Glucose (UA) Normal (Normal) mg/dL Urine Ketones Negative (Negative) mg/dL Urine Blood Large H (Negative) Urine Nitrite Negative (Negative) Urine Bilirubin Negative (Negative) Urine Urobilinogen Normal (Normal) mg/dL Ur Leukocyte Esterase Moderate H (Negative) Urine Microscopic RBC TNTC H (0-3) per hpf Urine Microscopic WBC 15-30 H (0-3) per hpf Ur Squamous Epith Cells Many H (None-Few) per lpf Urine Bacteria None Seen (None-Few) per hpf Hyaline Casts None Seen (None-Few) per lpf Urine Yeast Test Not Performed Ur Culture Indicated? NO. A (NO) Consult Discharge Plan - Plan [facility]errals: [facility] [Primary Care Provider] - - Attending Attestation I have personally performed a face to face evaluation on this patient. I have reviewed and agree with the care plan. History and Exam by me shows: This is an addendum to original report dictated by Betty Neves CMP. Please refer to Jeni note for full detail. Patient is a 77-year-old gentleman with extensive past medical history mentioned below presented to [facility] with respiratory distress, was diagnosed with pneumonia and sepsis was admitted to the ICU. We are consulted for recent history of p seudomonas infection and history of recent AAA repair. Currently patient unresponsive laying in bed with severe lethargy. Daughter is at bedside. Physical exam as above Assessment and plan: 1.sepsis 2.pneumonia causative organism not clear but cultures from [facility] BAL in the sputum were positive for pseudomonas aeruginosa pansensitive and MSSA 3.cellulitis 4.acute kidney injury 5.metabolic encephalopathy 6.bacteremia at [facility] 2 out of 2 sets positive 08/28/2018 pansensitive pseudomonas aeruginosa Recommendations Check respiratory infectious panel. Repeat sputum culture. Check MRSA screen. Continue vancomycin IV. Pharmacy to dose. Goal trough approximately 15. Continue Zosyn 3.375 g IV every 8 hours. Discontinue Levaquin. Duration of treatment depends on the clinical picture.
[2018-09-02 18:39] LABS: Adenovirus Not Detected (Not Detect); Bordetella Pertussis Not Detected (Not Detect); Chlamydophila pneumoniae Not Detected (Not Detect); Coronavirus 229E Not Detected (Not Detect); Coronavirus HKU1 Not Detected (Not Detect); Coronavirus NL63 Not Detected (Not Detect); Coronavirus OC43 Not Detected (Not Detect); Human Metapneumovirus Not Detected (Not Detect); Human Rhinovirus/Enterovirus Not Detected (Not Detect); Influenza A Subtype 2009 H1 Not Detected (Not Detect); Influenza A Untypeable Not Detected (Not Detect); Influenza B Not Detected (Not Detect); Mycoplasma pneumoniae Not Detected (Not Detect); Parainfluenza Virus 1 Not Detected (Not Detect); Parainfluenza Virus 2 Not Detected (Not Detect); Parainfluenza Virus 3 Not Detected (Not Detect); Parainfluenza Virus 4 Not Detected (Not Detect); Respiratory Syncytial Virus Not Detected (Not Detect)
[2018-09-02] MEDS: cloNIDine HCl 0.1 MG TABLET PO SCH (20:27)
[2018-09-02] MEDS: MOMETASONE FUROATE 100 mcg Inhaler IH SCH (21:07)
[2018-09-03] MEDS: Piperacillin/Tazobactam 3.375 GM in 0.9 % Sodium Chloride Mini Bag 100 ML IVPB SCH ×4 (01:47→23:36)
[2018-09-03] MEDS: Insulin LISPRO 300 UNITS/3 ML VIAL SQ SCH ×5 (01:53→23:36)
[2018-09-03] MEDS ORDERED: Levofloxacin 750 MG/150 ML 750 MG/150 ML BAG IVPB SCH (04:30)
[2018-09-03 04:38] LABS: Hematocrit 26.6 % (37.5-50.1); Mean Corpuscular HGB Conc 30.1 g/dL (31.6-35.5); Mean Corpuscular Hemoglobin 28.2 pg (28.0-33.3); Mean Corpuscular Volume 93.7 fL (83.0-100.0); Mean Platelet Volume 9.2 fL (9.4-12.4); Platelet Count 194 K/mcL (140-400); Red Blood Count 2.84 M/mcL (4.19-5.50); Red Cell Distribution Width 14.9 % (11.5-14.5)
[2018-09-03 04:57] LABS: BUN/Creatinine Ratio 42 (6-26); Blood Urea Nitrogen 57 mg/dL (8-23); Calcium 7.9 mg/dL (8.6-10.3); Carbon Dioxide 28 mEq/L (23-29); Chloride 105 mEq/L (98-107); Glucose 189 mg/dL (70-105); Osmolality,Calculated 313 (280-300); Potassium 3.7 mEq/L (3.5-5.1); Sodium 141 mEq/L (136-145); eGFR For Non-African Americans 50 (> 60)
[2018-09-03] MEDS: *HR* Heparin 5,000 UNIT/ML VIAL SQ SCH ×2 (05:31→17:27)
[2018-09-03] MEDS: MOMETASONE FUROATE 100 mcg Inhaler IH SCH ×2 (07:17→22:00)
[2018-09-03] MEDS: Nystatin SUSP 5 ML UD.LIQ PO SCH ×4 (08:31→19:47)
[2018-09-03] MEDS: Docusate Oral Soln 100 MG/10 ML UDC GTUBE SCH ×2 (08:31→19:47)
[2018-09-03] MEDS: Loratadine 10 MG TABLET PO SCH (08:32)
[2018-09-03] MEDS: cloNIDine HCl 0.1 MG TABLET PO SCH ×2 (08:32→19:48)
[2018-09-03] MEDS: amLODIPine 5 MG TABLET PO SCH (08:32)
[2018-09-03] MEDS: Aspirin 81 MG TAB.CHEW PO SCH (08:32)
[2018-09-03] MEDS: (Leflunomide [Arava] 10 MG) PO SCH (08:33)
--- NOTE | 2018-09-03 09:28 | Infectious Disease Progress No ---
Date of Encounter: 09/03/18 Time of Encounter: 08:40 - Assessment and Plan (1) Sepsis Current Visit: Yes Status: Acute The patient had 2 sepsis criteria on admission. Likely secondary to pneumonia versus right upper extremity cellulitis. Improved. White blood cell count remains normal. Tachycardia and tachypnea Resolved. Blood cultures drawn 09/01/18 are no growth to date 2 sets. Recommendations: Await blood cultures. Check MRSA screen.--> Ordered, but not collected. Continue vancomycin IV. Pharmacy to dose. Goal trough approximately 15. Continue Zosyn 3.375 g IV every 8 hours. Duration of treatment depends on the clinical picture. Monitor renal function and for drug toxicity and dose adjust antibiotics. Qualifiers: Sepsis type: Pseudomonas Qualified Code(s): A41.52 - Sepsis due to Pseudomonas (2) Pneumonia Current Visit: Yes Status: Acute Causative organism: Unclear. Previous BAL and sputum cultures at [facility] were positive for pseudomonas and MSSA. Chest x-ray shows a left lower lobe consolidation consistent with pneumonia. Urinary antigen tests were negative. Sputum culture was contaminated x2. Respiratory infectious panel negative. MRSA screen pending collection. Currently on vancomycin and Zosyn. Qualifiers: Pneumonia type: due to Pseudomonas Laterality: left Lung location: lower lobe of lung Qualified Code(s): J15.1 - Pneumonia due to Pseudomonas (3) Cellulitis Current Visit: Yes Status: Suspected Location: Right upper extremity. Cellulitis versus DVT versus other. The patient did have an IV in his arm and was receiving IV antibiotics there prior to admission. Venous Doppler study negative for SVT or DVT. If fails to improve with IV antibiotics, consider CT of the right upper extremity. Currently on vancomycin and Zosyn. Qualifiers: Site of cellulitis: extremity Laterality: right Qualified Code(s): L03.113 - Cellulitis of right upper limb (4) Acute kidney injury Current Visit: Yes Status: Acute Likely secondary to sepsis. Unsure baseline. Improved. Continue to trend. Monitor renal function and does just antibiotics. Avoid nephrotoxins as able. (5) Acute metabolic encephalopathy Current Visit: Yes Status: Acute Ongoing for the last month. Extensive workup at [facility] including MRI, EEG, and CT were negative for etiology. CVA versus anoxic brain injury versus other. Continue to monitor closely. (6) Bacteremia Current Visit: Yes Status: Resolved Blood cultures drawn 08/28/18 at [facility] were +2 out of 2 sets for pansensitive pseudomonas. Repeat blood cultures drawn 08/31/18 are no growth to date. Was discharged to [facility] on Zosyn 4.5 g IV every 8 hours. Currently on IV Zosyn. (7) CKD (chronic kidney disease) stage 3, GFR 30-59 ml/min Current Visit: Yes Status: Chronic (8) Diabetes Current Visit: Yes Status: Chronic Recommend strict glucose control per the primary team. Qualifiers: Diabetes mellitus type: type 2 Diabetes mellitus intermediate school teacher insulin use: with intermediate school teacher use Diabetes mellitus complication status: with unspecified complications Qualified Code(s): E11.8 - Type 2 diabetes mellitus with unspecified complications; Z79.4 - residential (current) use of insulin (9) Hypertension Current Visit: Yes Status: Chronic Qualifiers: Hypertension type: essential hypertension Qualified Code(s): I10 - Essential (primary) hypertension (10) S/P AAA (abdominal aortic aneurysm) repair Current Visit: Yes Status: Chronic Status post EVAR in 2013. Status post emergent endovascular repair of ruptured AAA with aortic cuff and right groin cutdown for delivery of device 08/01/18 at [facility]. - Subjective Interval history: Patient seen and examined. No acute events noted overnight. Per nursing, the patient's mental status remains unchanged. She reports not purposeful eye opening when performing mouth care. Patient remains unresponsive to verbal, tactile, and painful stimuli. Review of systems unobtainable. Infect Dis PN-Objective Data - Labs CBC & Chem 7: 09/03/18 04:15 09/03/18 04:15 Labs: Laboratory Results - last 24 hr 09/02/18 09/02/18 09/02/18 01:03 05:18 11:30 WBC RBC Hgb Hct MCV MCH MCHC RDW Plt Count MPV Sodium Potassium Chloride Carbon Dioxide BUN Creatinine Est GFR ( Amer) Est GFR (Non-Af Amer) BUN/Creatinine Ratio Glucose POC Glucose 120 H 158 H 187 H Calculated Osmolality Calcium Chlamy pneumoniae PCR Adenovirus (PCR) B. pertussis DNA (PCR) B.parapertussis DNA PCR Coronavirus OC43 (PCR) Coronavirus HKU1 (PCR) Coronavirus 229E (PCR) Coronavirus NL63 (PCR) Human Metapneumovir PCR Influenza A (H1) PCR Influ A (H1N1/09) PCR Influenza A (H3) PCR Influenza A Untype (PCR) Influenza Type B (PCR) M.pneumoniae DNA (PCR) Parainfluenza 1 (PCR) Parainfluenza 2 (PCR) Parainfluenza 3 (PCR) Parainfluenza 4 (PCR) RSV (PCR) Entero/Rhino (PCR) Specimen Rejected 09/02/18 09/02/18 09/02/18 15:47 15:47 17:57 WBC RBC Hgb Hct MCV MCH MCHC RDW Plt Count MPV Sodium Potassium Chloride Carbon Dioxide BUN Creatinine Est GFR ( Amer) Est GFR (Non-Af Amer) BUN/Creatinine Ratio Glucose POC Glucose 200 H Calculated Osmolality Calcium Chlamy pneumoniae PCR Not Detected Adenovirus (PCR) Not Detected B. pertussis DNA (PCR) Not Detected B.parapertussis DNA PCR Not Detected Coronavirus OC43 (PCR) Not Detected Coronavirus HKU1 (PCR) Not Detected Coronavirus 229E (PCR) Not Detected Coronavirus NL63 (PCR) Not Detected Human Metapneumovir PCR Not Detected Influenza A (H1) PCR Not Detected Influ A (H1N1/09) PCR Not Detected Influenza A (H3) PCR Not Detected Influenza A Untype (PCR) Not Detected Influenza Type B (PCR) Not Detected M.pneumoniae DNA (PCR) Not Detected Parainfluenza 1 (PCR) Not Detected Parainfluenza 2 (PCR) Not Detected Parainfluenza 3 (PCR) Not Detected Parainfluenza 4 (PCR) Not Detected RSV (PCR) Not Detected Entero/Rhino (PCR) Not Detected Specimen Rejected Miscellaneous 09/02/18 09/03/18 09/03/18 23:43 04:15 04:15 WBC 9.6 RBC 2.84 L Hgb 8.0 L Hct 26.6 L MCV 93.7 MCH 28.2 MCHC 30.1 L RDW 14.9 H Plt Count 194 MPV 9.2 L Sodium 141 Potassium 3.7 Chloride 105 Carbon Dioxide 28 BUN 57 H Creatinine 1.37 H Est GFR ( Amer) > 60 Est GFR (Non-Af Amer) 50 L BUN/Creatinine Ratio 42 H Glucose 189 H POC Glucose 194 H Calculated Osmolality 313 H Calcium 7.9 L Chlamy pneumoniae PCR Adenovirus (PCR) B. pertussis DNA (PCR) B.parapertussis DNA PCR Coronavirus OC43 (PCR) Coronavirus HKU1 (PCR) Coronavirus 229E (PCR) Coronavirus NL63 (PCR) Human Metapneumovir PCR Influenza A (H1) PCR Influ A (H1N1/09) PCR Influenza A (H3) PCR Influenza A Untype (PCR) Influenza Type B (PCR) M.pneumoniae DNA (PCR) Parainfluenza 1 (PCR) Parainfluenza 2 (PCR) Parainfluenza 3 (PCR) Parainfluenza 4 (PCR) RSV (PCR) Entero/Rhino (PCR) Specimen Rejected Cultures: Cultures 09/02/18 01:00 Wound Culture - Preliminary Groin No growth. 09/02/18 15:47 Sputum Culture - Final Trachea 09/01/18 01:45 Urine Culture - Preliminary Urine,Al Port Culture is incubating. 08/31/18 01:45 Legionella Antigen - Final Urine,Al Port Streptococcus pneumoniae Antigen (M - Final 09/01/18 06:14 Sputum Culture - Final Sputum 09/01/18 01:40 Blood Culture - Preliminary Peripheral Venipuncture Culture is incubating and being continuously monitored for growth. Final report to follow. 09/01/18 01:44 Blood Culture - Preliminary Peripheral Venipuncture Culture is incubating and being continuously monitored for growth. Final report to follow. Serology 09/02/18 09/01/18 Range/Units 15:47 01:45 Urine Color Yellow (Yellow) Urine Clarity Cloudy A (Clear) Urine pH 6.0 (5.0-8.0) pH Units Ur Specific [place] 1.018 (1.010-1.025) Urine Protein 100 H (Neg-Trace) mg/dL Urine Glucose (UA) Normal (Normal) mg/dL Urine Ketones Negative (Negative) mg/dL Urine Blood Large H (Negative) Urine Nitrite Negative (Negative) Urine Bilirubin Negative (Negative) Urine Urobilinogen Normal (Normal) mg/dL Ur Leukocyte Esterase Moderate H (Negative) Urine Microscopic RBC TNTC H (0-3) per hpf Urine Microscopic WBC 15-30 H (0-3) per hpf Ur Squamous Epith Cells Many H (None-Few) per lpf Urine Bacteria None Seen (None-Few) per hpf Hyaline Casts None Seen (None-Few) per lpf Urine Yeast Test Not Performed Ur Culture Indicated? NO. A (NO) Chlamy pneumoniae PCR Not Detected (Not Detect) Adenovirus (PCR) Not Detected (Not Detect) B. pertussis DNA (PCR) Not Detected (Not Detect) B.parapertussis DNA PCR Not Detected (Not Detect) Coronavirus OC43 (PCR) Not Detected (Not Detect) Coronavirus HKU1 (PCR) Not Detected (Not Detect) Coronavirus 229E (PCR) Not Detected (Not Detect) Coronavirus NL63 (PCR) Not Detected (Not Detect) Human Metapneumovir PCR Not Detected (Not Detect) Influenza A (H1) PCR Not Detected (Not Detect) Influ A (H1N1/09) PCR Not Detected (Not Detect) Influenza A (H3) PCR Not Detected (Not Detect) Influenza A Untype (PCR) Not Detected (Not Detect) Influenza Type B (PCR) Not Detected (Not Detect) M.pneumoniae DNA (PCR) Not Detected (Not Detect) Parainfluenza 1 (PCR) Not Detected (Not Detect) Parainfluenza 2 (PCR) Not Detected (Not Detect) Parainfluenza 3 (PCR) Not Detected (Not Detect) Parainfluenza 4 (PCR) Not Detected (Not Detect) RSV (PCR) Not Detected (Not Detect) Entero/Rhino (PCR) Not Detected (Not Detect) Exam - Constitutional Vitals: Temp Pulse Resp BP Pulse Ox 99.1 F 78 18 129/60 99 09/03/18 07:25 09/03/18 05:00 09/03/18 07:18 09/03/18 04:00 09/03/18 07:18 General appearance: average body habitus, no acute distress, no cooperative - Head Head exam: Present: atraumatic, normal inspection, normocephalic - Eye Eye exam: Present: normal appearance, PERRL Pupils: Present: normal accommodation Additional comments: Corneal reflex noted. Does not open eyes on command. - ENT ENT exam: Present: mucous membranes dry Additional comments: Oral thrush noted. - Neck Neck exam: Present: normal inspection Additional comments: Tracheostomy midline with O2 via trach mask. - Respiratory Respiratory exam: Present: rhonchi (Throughout). Absent: rales, stridor, wheezes, tachypnea - Cardiovascular Cardiovascular exam: Present: RRR, +S1, +S2 - GI/Abdominal GI/Abdominal exam: Present: normal bowel sounds, soft. Absent: distended, tenderness Additional comments: Al catheter noted to be draining clear yellow urine. Rectal tube with small amount of liquid brown stool noted. PEG tube noted with tube feeds infusing. - Extremities Exam Extremities exam: Present: pedal edema (Trace bilateral lower extremities). Absent: joint swelling, normal inspection (Erythema to the right upper extremity persists, but is improved.), tenderness - Neurological Exam Neurological exam: Present: altered - Expanded Neurological Exam Coma Scale Eye Opening: None Coma Scale Motor Response: Withdraws to Pain Coma Scale Verbal Response: None Coma Scale Total: 6 - Skin Skin exam: Present: dry, intact, normal color, warm Additional comments: Surgical site noted to the right lower abdomen/groin with scabbing noted. No surrounding erythema, warmth, or drainage. Consult Discharge Plan - Plan [facility] Care Provider[facility] - - Attending Attestation I have personally performed a face to face evaluation on this patient. I have reviewed and agree with the care plan. History and Exam by me shows: Assessment and plan: 1.sepsis 2.pneumonia causative organism not clear but cultures from [facility] BAL in the sputum were positive for pseudomonas aeruginosa pansensitive and MSSA 3.cellulitis 4.acute kidney injury 5.metabolic encephalopathy 6.bacteremia at [facility] 2 out of 2 sets positive 08/28/2018 pansensitive pseudomonas aeruginosa Recommendations Check respiratory infectious panel. NEGATIVE Repeat sputum culture. Check MRSA screen. NEGATIVE Continue vancomycin IV. Pharmacy to dose. Goal trough approximately 15. Continue Zosyn 3.375 g IV every 8 hours. Discontinue Levaquin. Duration of treatment depends on the clinical picture.
[2018-09-03] MEDS ORDERED: Ondansetron 4 MG/2 ML VIAL IVP PRN (11:06)
[2018-09-03] MEDS ORDERED: Acetaminophen 325 MG TABLET PO PRN (11:06)
[2018-09-03] MEDS ORDERED: Dextrose 4 GM Chewable Tablets PO PRN ×2 (11:06)
[2018-09-03] MEDS ORDERED: *HR* Dextrose 50 % in Water (Syg) 50 ML SYRINGE IVP PRN (11:06)
[2018-09-03] MEDS ORDERED: Naloxone 0.4 MG/ML INJ IVP PRN (11:06)
[2018-09-03] MEDS ORDERED: D5% in Water 1,000 ML IVC PRN (11:06)
[2018-09-03] MEDS ORDERED: Dextrose Gel 15 GM/37.5 ML TUBE PO PRN ×2 (11:06)
--- NOTE | 2018-09-03 11:42 | Internal Med Progress Note ---
<Kya Hinojosa R - Last Filed: 09/03/18 13:57> Hospitalist Progress Note - Encounter Date of Encounter: 09/03/18 Time of Encounter: 08:45 - Subjective Interval History: Pt being transferred from overflow. Improving condition. EEG ordered and negative for acute abnormality. Levaquin DC'd by ID. STAN had swelling and US was negative for DVT and SVT. Respiratory infection panel negative. - Exam Vitals: Temp Pulse Resp BP Pulse Ox 99.1 F 77 20 130/63 97 09/03/18 07:25 09/03/18 08:00 09/03/18 08:00 09/03/18 08:00 09/03/18 08:00 Exam: Constitutional - no longer tachypnic. appears more comfortable. HEENT - PERRL. Neck - No palpable LAD Cardio - RRR. No audible murmurs. Respiratory - Rhonchi in LLL. No audible wheezing or rales in other lung [place]. Abdomen - soft, nontender to palpation. No rebound, guarding or rigidity. Extremities - No edema of extremities. Equal pulses. Skin - No visible rash. Warm and dry. Neuro - alert but not able to assess orientation. - Assessment and Plan (1) Sepsis Current Visit: Yes Status: Acute Assessment and Plan: Pt released from [facility] on IV Zosyn for Pseudomonas infection Pt met 2 sepsis criteria on admission Presumed infxn pneumonia vs cellulitis vs current pseudomonas infection Zosyn and vanc per ID, day 3 Pt continues to improve, being transferred out of today (2) Pneumonia Current Visit: Yes Status: Acute Assessment and Plan: Presented to ED with change in mental status after DC from [facility] to an F Current treatment for pseudomonas after AAA repair with zosyn CXR in ER showed LLL pneumonia Strep/legionella ag negative BCx pending, sputum cx negative Currently on 10L via trach ID consulted and following, appreciate recs Further plan as above (3) Acute metabolic encephalopathy Current Visit: Yes Status: Acute Assessment and Plan: AMS likely secondary to pneumonia vs anoxic brain injury Has had extensive workup at [facility] including MRI, EEG, CT without a diagnosis We will repeat an EEG today - no acute abnormality noted Continue to monitor status (4) Cellulitis Current Visit: Yes Status: Suspected Assessment and Plan: Right upper extremity swelling and erythema - patient did have peripheral IV in this arm for IV antibiotics Ultrasound of right upper extremity was negative for DVT and SVT Continue treatment with antibiotics as above Consider right upper extremity CT scan if no signs of improvement (5) S/P AAA (abdominal aortic aneurysm) repair Current Visit: Yes Status: Chronic Assessment and Plan: Recent repair of AAA graft that was leaking Subsequent pseudomonal infection Was on 2 days of vanc, zosyn and levaquin ID consulted for better abx recs - DC'd levaquin (6) CKD (chronic kidney disease) stage 3, GFR 30-59 ml/min Current Visit: Yes Status: Chronic Assessment and Plan: Creatinine 1.33 which appears to be at baseline Renally dose meds Avoid nephrotoxins (7) Diabetes Current Visit: Yes Status: Chronic Assessment and Plan: Hold home meds Low dose SSI Resume PEG feedings (8) Hypertension Current Visit: Yes Status: Chronic Assessment and Plan: Resume norvasc and coreg Holding other home BP meds Currently normotensive Continue to monitor and resume clonidine if needed DVT Prophylaxis: SQ Heparin - Time Spent with Patient Total time spent is greater than 50% in coordination of care (as documented) at patient's floor/unit and/or counseling patient: Internal Medicine: Result - Labs CBC & Chem 7: 09/03/18 04:15 09/03/18 04:15 Labs: Short CBC 09/03/18 Range/Units 04:15 WBC 9.6 (4.3-11.1) K/mcL Hgb 8.0 L (12.9-16.9) g/dL Hct 26.6 L (37.5-50.1) % Plt Count 194 (140-400) K/mcL BMP 09/03/18 04:15 Sodium 141 Potassium 3.7 Chloride 105 Carbon Dioxide 28 BUN 57 H Creatinine 1.37 H Glucose 189 H Calcium 7.9 L Consult Discharge Plan - Plan Referrals: [facility] [Primary Care Provider] - <Napoleon Yeager - Last Filed: 09/03/18 17:51> Hospitalist Progress Note - Encounter Date of Encounter: 09/03/18 - Exam Vitals: Temp Pulse Resp BP Pulse Ox 98.2 F 70 16 133/69 94 09/03/18 16:03 09/03/18 11:49 09/03/18 11:49 09/03/18 11:49 09/03/18 11:49 - Assessment and Plan (1) Sepsis Current Visit: Yes Status: Acute (2) Pneumonia Current Visit: Yes Status: Acute (3) S/P AAA (abdominal aortic aneurysm) repair Current Visit: Yes Status: Chronic (4) Hypertension Current Visit: Yes Status: Chronic (5) DVT prophylaxis Current Visit: Yes Status: Acute (6) Acute metabolic encephalopathy Current Visit: Yes Status: Acute (7) Diabetes Current Visit: Yes Status: Chronic (8) CKD (chronic kidney disease) stage 3, GFR 30-59 ml/min Current Visit: Yes Status: Chronic - Time Spent with Patient Total time spent is greater than 50% in coordination of care (as documented) at patient's floor/unit and/or counseling patient: Internal Medicine: Result - Labs CBC & Chem 7: 09/03/18 04:15 09/03/18 04:15 Labs: Short CBC 09/03/18 Range/Units 04:15 WBC 9.6 (4.3-11.1) K/mcL Hgb 8.0 L (12.9-16.9) g/dL Hct 26.6 L (37.5-50.1) % Plt Count 194 (140-400) K/mcL BMP 09/03/18 04:15 Sodium 141 Potassium 3.7 Chloride 105 Carbon Dioxide 28 BUN 57 H Creatinine 1.37 H Glucose 189 H Calcium 7.9 L - Attending Attestation I examined this patient and my medical decision-making was reviewed with the Resident Physician on 09/03/18. I agree with the documented findings, disposition and treatment plan as described except to the extent set forth below. Mr Busby is currently admitted for sepsis. He remains moderate to high risk due to potential for worsening clinical status. Mr Busby is not awake at this time. No fever or chills. No GI issues now. Tolerating tube feed and abx. Exam Comfortable Mucus membranes dry Heart not tachy No wheeze abd soft I/P 1. Metabolic encephalopathy - check EEG today 2. Sepsis Further diagnoses and plan as above. <Kya Hinojosa R - Last Filed: 09/03/18 13:57> (1) Sepsis Qualifiers: Sepsis type: Pseudomonas Qualified Code(s): A41.52 - Sepsis due to Pseudomonas (2) Pneumonia Qualifiers: Pneumonia type: due to Pseudomonas Laterality: left Lung location: lower lobe of lung Qualified Code(s): J15.1 - Pneumonia due to Pseudomonas (4) Cellulitis Qualifiers: Site of cellulitis: extremity Laterality: right Qualified Code(s): L03.113 - Cellulitis of right upper limb (7) Diabetes Qualifiers: Diabetes mellitus type: type 2 Diabetes mellitus termite technician insulin use: with termite technician use Diabetes mellitus complication status: with unspecified complications Qualified Code(s): E11.8 - Type 2 diabetes mellitus with unspecified complications; Z79.4 - termite treater (current) use of insulin (8) Hypertension Qualifiers: Hypertension type: essential hypertension Qualified Code(s): I10 - Essential (primary) hypertension <Napoleon Yeager A - Last Filed: 09/03/18 17:51> (1) Sepsis Qualifiers: Sepsis type: Pseudomonas Qualified Code(s): A41.52 - Sepsis due to Pseudomonas (2) Pneumonia Qualifiers: Pneumonia type: due to Pseudomonas Laterality: left Lung location: lower lobe of lung Qualified Code(s): J15.1 - Pneumonia due to Pseudomonas (4) Hypertension Qualifiers: Hypertension type: essential hypertension Qualified Code(s): I10 - Essential (primary) hypertension (7) Diabetes Qualifiers: Diabetes mellitus type: type 2 Diabetes mellitus termite technician insulin use: with fci use Diabetes mellitus complication status: with unspecified complications Qualified Code(s): E11.8 - Type 2 diabetes mellitus with unspecified complications; Z79.4 - termite treater (current) use of insulin
--- NOTE | 2018-09-03 13:17 | EEG/EMG/Oth Biometrics Report ---
EEG Procedure Report Date of procedure: 09/03/18 EEG Procedure: Routine EEG Procedure Note: This EEG was acquired with standard international 10-20 system with EKG recording. The background EEG activity was characterized by the presence of posterior dominant alpha rhythm with the best frequency up to 8-9 Hz. The background activity was reactive to eye openings. Sleep stages were not identified during this tracing. Drowsiness was characterized by drop off of posterior dominant Alpha rhythm. There are no electrographic seizures identified during this tracing. There are no epileptiform discharges and focal slowing noted during this recording. Photic stimulation produced no abnormalities. Hyperventilation procedure not performed. EKG tracing showed no significant cardiac dysrhythmia. Impression: This is essentially a normal awake and drowsy EEG. Clinical Correlation: Normal EEGs, however, do not exclude epilepsy. Clinical correlation is advised.
[2018-09-03] MEDS ORDERED: Furosemide 20 MG/2 ML VIAL IVP ONE (16:21)
[2018-09-03] MEDS: Glycopyrrolate 1 MG TABLET GTUBE SCH ×2 (17:28→19:47)
[2018-09-04 04:18] LABS: Hematocrit 26.3 % (37.5-50.1); Mean Corpuscular HGB Conc 30.4 g/dL (31.6-35.5); Mean Corpuscular Hemoglobin 28.7 pg (28.0-33.3); Mean Corpuscular Volume 94.3 fL (83.0-100.0); Platelet Count 202 K/mcL (140-400); Red Blood Count 2.79 M/mcL (4.19-5.50)
[2018-09-04 04:27] LABS: BUN/Creatinine Ratio 40 (6-26); Blood Urea Nitrogen 49 mg/dL (8-23); Calcium 7.8 mg/dL (8.6-10.3); Carbon Dioxide 26 mEq/L (23-29); Chloride 106 mEq/L (98-107); Glucose 198 mg/dL (70-105); Osmolality,Calculated 303 (280-300); Potassium 3.9 mEq/L (3.5-5.1); Sodium 137 mEq/L (136-145); eGFR For Non-African Americans 58 (> 60)
[2018-09-04] MEDS: *HR* Heparin 5,000 UNIT/ML VIAL SQ SCH ×2 (05:11→16:48)
[2018-09-04] MEDS: Insulin LISPRO 300 UNITS/3 ML VIAL SQ SCH ×4 (05:12→23:53)
[2018-09-04] MEDS ORDERED: Patient Taking Own Medication 1 EACH PO SCH (09:00)
[2018-09-04] MEDS: Loratadine 10 MG TABLET PO SCH (09:05)
[2018-09-04] MEDS: Docusate Oral Soln 100 MG/10 ML UDC GTUBE SCH ×2 (09:05→20:19)
[2018-09-04] MEDS: Nystatin SUSP 5 ML UD.LIQ PO SCH ×4 (09:05→20:19)
[2018-09-04] MEDS: amLODIPine 5 MG TABLET PO SCH (09:05)
[2018-09-04] MEDS: Glycopyrrolate 1 MG TABLET GTUBE SCH ×3 (09:05→20:19)
[2018-09-04] MEDS: Piperacillin/Tazobactam 3.375 GM in 0.9 % Sodium Chloride Mini Bag 100 ML IVPB SCH ×3 (09:06→23:52)
[2018-09-04] MEDS: Aspirin 81 MG TAB.CHEW PO SCH (09:06)
[2018-09-04] MEDS: cloNIDine HCl 0.1 MG TABLET PO SCH (09:06)
[2018-09-04] MEDS: MOMETASONE FUROATE 100 mcg Inhaler IH SCH ×2 (09:29→21:13)
--- NOTE | 2018-09-04 10:40 | Internal Med Progress Note ---
Hospitalist Progress Note - Encounter Date of Encounter: 09/04/18 Time of Encounter: 10:00 - Subjective Interval History: Mr Busby is currently admitted for sepsis related to pneumonia. He remains moderate to high risk due to potential for worsening clinical status. Mr Busby is the same today. He is unresponsive to voice. No fever noted. EEG read as normal. - Exam Vitals: Temp Pulse Resp BP Pulse Ox 98.1 F 73 22 175/82 99 09/04/18 07:00 09/04/18 08:00 09/04/18 08:00 09/04/18 08:00 09/04/18 08:00 Exam: Constitutional - Comfortable. Does not respond to voice. H - normocephalic EENT - Mucus membranes moist Neck - No nuchal rigidity Cardio - RRR. Not tachycardic currently. Respiratory - Rhonchi persists bilaterally. No wheeze noted. Abdomen - Soft. Does not appear tender. Extremities - Nonpitting edema noted throughout. Skin - No visible rash. Warm and dry. Neuro - Not alert at this time. - Assessment and Plan (1) Sepsis Current Visit: Yes Status: Resolved Assessment and Plan: Pt admitted with sepsis presumed due to Pseudomonas (due to recent history). He clinically has improved at this time. (2) Pneumonia Current Visit: Yes Status: Acute Assessment and Plan: Pt with prior hx of Pseudomonas pneumonia. Currently on IV abx for coverage. Clinically he has improved. (3) S/P AAA (abdominal aortic aneurysm) repair Current Visit: Yes Status: Chronic Assessment and Plan: s/p recent repair of leaking AAA graft (4) Hypertension Current Visit: Yes Status: Chronic Assessment and Plan: BP uncontrolled. Will adjust meds today. (5) DVT prophylaxis Current Visit: Yes Status: Acute Assessment and Plan: Sub-cutaneous heparin (6) Acute metabolic encephalopathy Current Visit: Yes Status: Acute Assessment and Plan: Pt has had encephalopathy. Cause not clear - EEG here is normal. Continue supportive care. (7) Diabetes Current Visit: Yes Status: Chronic Assessment and Plan: On PEG tube feeds and coverage. (8) CKD (chronic kidney disease) stage 3, GFR 30-59 ml/min Current Visit: Yes Status: Chronic Assessment and Plan: Creatinine appears to be at his baseline Avoid nephrotoxins Renally adjusted antibiotic dosing - Time Spent with Patient Total time spent is greater than 50% in coordination of care (as documented) at patient's floor/unit and/or counseling patient: Internal Medicine: Result - Labs CBC & Chem 7: 09/04/18 04:00 09/04/18 04:00 Labs: Short CBC 09/04/18 Range/Units 04:00 WBC 9.4 (4.3-11.1) K/mcL Hgb 8.0 L (12.9-16.9) g/dL Hct 26.3 L (37.5-50.1) % Plt Count 202 (140-400) K/mcL BMP 09/04/18 04:00 Sodium 137 Potassium 3.9 Chloride 106 Carbon Dioxide 26 BUN 49 H Creatinine 1.21 Glucose 198 H Calcium 7.8 L Consult Discharge Plan - Plan [facility]errals: [facility] [Primary Care Provider] - (1) Sepsis Qualifiers: Sepsis type: Pseudomonas Qualified Code(s): A41.52 - Sepsis due to Pseudomonas (2) Pneumonia Qualifiers: Pneumonia type: due to Pseudomonas Laterality: left Lung location: lower lobe of lung Qualified Code(s): J15.1 - Pneumonia due to Pseudomonas (4) Hypertension Qualifiers: Hypertension type: essential hypertension Qualified Code(s): I10 - Essential (primary) hypertension (7) Diabetes Qualifiers: Diabetes mellitus type: type 2 Diabetes mellitus termite technician insulin use: with termite technician use Diabetes mellitus complication status: with unspecified complications Qualified Code(s): E11.8 - Type 2 diabetes mellitus with unspecified complications; Z79.4 - correction (current) use of insulin
[2018-09-04] MEDS ORDERED: Ipratropium/Albuterol Neb 3 ML IH PRN (18:37)
[2018-09-05 03:45] LABS: Hematocrit 25.5 % (37.5-50.1); Hemoglobin 7.8 g/dL (12.9-16.9); Mean Corpuscular HGB Conc 30.6 g/dL (31.6-35.5); Mean Corpuscular Hemoglobin 28.7 pg (28.0-33.3); Mean Corpuscular Volume 93.8 fL (83.0-100.0); Mean Platelet Volume 9.1 fL (9.4-12.4); Platelet Count 186 K/mcL (140-400); Red Blood Count 2.72 M/mcL (4.19-5.50); Red Cell Distribution Width 15.1 % (11.5-14.5)
[2018-09-05 03:50] LABS: BUN/Creatinine Ratio 38 (6-26); Blood Urea Nitrogen 41 mg/dL (8-23); Calcium 7.9 mg/dL (8.6-10.3); Carbon Dioxide 28 mEq/L (23-29); Chloride 105 mEq/L (98-107); Glucose 154 mg/dL (70-105); Magnesium 2.2 mg/dL (1.6-2.6); Osmolality,Calculated 301 (280-300); Potassium 4.1 mEq/L (3.5-5.1); Sodium 139 mEq/L (136-145); eGFR For Non-African Americans > 60 (> 60)
[2018-09-05] MEDS: Insulin LISPRO 300 UNITS/3 ML VIAL SQ SCH ×6 (03:52→22:09)
[2018-09-05] MEDS: *HR* Heparin 5,000 UNIT/ML VIAL SQ SCH ×2 (05:51→17:49)
[2018-09-05] MEDS: Piperacillin/Tazobactam 3.375 GM in 0.9 % Sodium Chloride Mini Bag 100 ML IVPB SCH ×2 (08:44→17:53)
[2018-09-05] MEDS: Glycopyrrolate 1 MG TABLET GTUBE SCH ×3 (08:47→22:08)
[2018-09-05] MEDS: Aspirin 81 MG TAB.CHEW PO SCH (08:47)
[2018-09-05] MEDS: cloNIDine HCl 0.1 MG TABLET PO SCH (08:47)
[2018-09-05] MEDS: Nystatin SUSP 5 ML UD.LIQ PO SCH ×4 (08:47→22:08)
[2018-09-05] MEDS: Docusate Oral Soln 100 MG/10 ML UDC GTUBE SCH ×2 (08:47→22:09)
[2018-09-05] MEDS: amLODIPine 5 MG TABLET PO SCH (08:51)
[2018-09-05] MEDS: Loratadine 10 MG TABLET PO SCH (08:53)
--- NOTE | 2018-09-05 09:18 | Internal Med Progress Note ---
Hospitalist Progress Note - Encounter Date of Encounter: 09/05/18 Time of Encounter: 08:50 - Subjective Interval History: Mr Busby is currently admitted for sepsis related to presumed Pseudomonas pneumonia. He remains moderate to high risk due to potential for worsening clinical status. Mr Busby is coughing but not alert. No fever or chills. BP elevated but getting morning meds. No diarrhea. No other new issues at this time. - Exam Vitals: Temp Pulse Resp BP Pulse Ox 98.9 F 77 20 169/79 99 09/05/18 07:23 09/05/18 04:05 09/05/18 04:05 09/05/18 04:05 09/05/18 04:05 Exam: Constitutional - Comfortable. Does not open eyes to name. H - normocephalic EENT - Mucus membranes dry Neck - No nuchal rigidity Cardio - RRR. Occ PVC on monitor. Not tachycardic Respiratory - Scattered rhonchi bilaterally. No wheeze or rales. Abdomen - Soft. Does not appear tender. No mass felt. Extremities - Nonpitting edema noted throughout. Seems worse today. Skin - No visible rash. Warm and dry. Neuro - Not alert at this time. - Assessment and Plan (1) Edema extremities Current Visit: Yes Status: Acute Assessment and Plan: Pt has diffuse nonpitting edema. Will try albumin for 3 doses to try to mobilize the fluid. (2) Acute metabolic encephalopathy Current Visit: Yes Status: Acute Assessment and Plan: Encephalopathy unchanged at this time. Trying to stop any meds that may be contributing. Work up has been negative at [facility] and EEG normal here. (3) Sepsis Current Visit: Yes Status: Resolved Assessment and Plan: Pt admitted with sepsis presumed due to Pseudomonas (due to recent history). Resolved at this time. (4) Pneumonia Current Visit: Yes Status: Acute Assessment and Plan: Pt with prior hx of Pseudomonas pneumonia. Currently on IV Zosyn for coverage. Further abx plan per ID service tomorrow. (5) S/P AAA (abdominal aortic aneurysm) repair Current Visit: Yes Status: Chronic Assessment and Plan: s/p recent repair of leaking AAA graft No acute issues. (6) Hypertension Current Visit: Yes Status: Chronic Assessment and Plan: BP uncontrolled. Med adjustments made yesterday and will be adjusted more if does not continue to improve. Stopping Clonidine - has LACQUER POLISHER acting properties (7) DVT prophylaxis Current Visit: Yes Status: Acute Assessment and Plan: Sub-cutaneous heparin (8) Diabetes Current Visit: Yes Status: Chronic Assessment and Plan: Fair control at this time. Continue same plan of care. (9) CKD (chronic kidney disease) stage 3, GFR 30-59 ml/min Current Visit: Yes Status: Chronic Assessment and Plan: Creatinine has improved over last 48 hours. Continue to monitor. 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 (11) Chronic hypoxemic respiratory failure Current Visit: Yes Status: Chronic - Time Spent with Patient Total time spent is greater than 50% in coordination of care (as documented) at patient's floor/unit and/or counseling patient: Internal Medicine: Result - Labs CBC & Chem 7: 09/05/18 03:20 09/05/18 03:20 Labs: Short CBC 09/05/18 Range/Units 03:20 WBC 7.8 (4.3-11.1) K/mcL Hgb 7.8 L (12.9-16.9) g/dL Hct 25.5 L (37.5-50.1) % Plt Count 186 (140-400) K/mcL BMP 09/05/18 03:20 Sodium 139 Potassium 4.1 Chloride 105 Carbon Dioxide 28 BUN 41 H Creatinine 1.09 Glucose 154 H Calcium 7.9 L Consult Discharge Plan - Plan [facility] [Primary Care Provider[facility] - (3) Sepsis Qualifiers: Sepsis type: Pseudomonas Qualified Code(s): A41.52 - Sepsis due to Pseudomonas (4) Pneumonia Qualifiers: Pneumonia type: due to Pseudomonas Laterality: left Lung location: lower lobe of lung Qualified Code(s): J15.1 - Pneumonia due to Pseudomonas (6) Hypertension Qualifiers: Hypertension type: essential hypertension Qualified Code(s): I10 - Essential (primary) hypertension (8) Diabetes Qualifiers: Diabetes mellitus type: type 2 Diabetes mellitus intermediate card tender insulin use: with mcc use Diabetes mellitus complication status: with unspecified complications Qualified Code(s): E11.8 - Type 2 diabetes mellitus with unspecified complications; Z79.4 - residential (current) use of insulin
[2018-09-05] MEDS: MOMETASONE FUROATE 100 mcg Inhaler IH SCH ×2 (11:19→20:10)
[2018-09-05] MEDS: Albumin 25% 25gram/100mL 25 GM/100 ML IV.SOLN IVPB SCH ×2 (15:16→15:29)
[2018-09-06] MEDS: Insulin LISPRO 300 UNITS/3 ML VIAL SQ SCH ×6 (00:59→21:29)
[2018-09-06] MEDS: Albumin 25% 25gram/100mL 25 GM/100 ML IV.SOLN IVPB SCH (01:00)
[2018-09-06] MEDS: Piperacillin/Tazobactam 3.375 GM in 0.9 % Sodium Chloride Mini Bag 100 ML IVPB SCH ×3 (03:14→16:01)
[2018-09-06 03:38] LABS: Hematocrit 24.2 % (37.5-50.1); Hemoglobin 7.3 g/dL (12.9-16.9); Mean Corpuscular HGB Conc 30.2 g/dL (31.6-35.5); Mean Corpuscular Hemoglobin 28.3 pg (28.0-33.3); Mean Corpuscular Volume 93.8 fL (83.0-100.0); Mean Platelet Volume 8.8 fL (9.4-12.4); Platelet Count 183 K/mcL (140-400); Red Blood Count 2.58 M/mcL (4.19-5.50); Red Cell Distribution Width 15.2 % (11.5-14.5)
[2018-09-06 03:54] LABS: Alanine Aminotransferase 14 Units/L (7-52); Albumin 2.9 g/dL (3.5-5.7); Alkaline Phosphatase 53 Units/L (34-104); Aspartate Amino Transferase 13 Units/L (13-39); BUN/Creatinine Ratio 38 (6-26); Bilirubin,Total 0.5 mg/dL (0.3-1.0); Blood Urea Nitrogen 36 mg/dL (8-23); Calcium 8.1 mg/dL (8.6-10.3); Carbon Dioxide 27 mEq/L (23-29); Chloride 103 mEq/L (98-107); Globulin 2.8 g/dL (2.4-3.5); Glucose 184 mg/dL (70-105); Osmolality,Calculated 295 (280-300); Potassium 4.3 mEq/L (3.5-5.1); Sodium 136 mEq/L (136-145); Total Protein 5.7 g/dL (6.4-8.9); eGFR For Non-African Americans > 60 (> 60)
[2018-09-06] MEDS: *HR* Heparin 5,000 UNIT/ML VIAL SQ SCH ×2 (05:12→18:23)
[2018-09-06] MEDS: amLODIPine 5 MG TABLET PO SCH (08:12)
[2018-09-06] MEDS: Aspirin 81 MG TAB.CHEW PO SCH (08:12)
[2018-09-06] MEDS: Loratadine 10 MG TABLET PO SCH (08:12)
[2018-09-06] MEDS: Docusate Oral Soln 100 MG/10 ML UDC GTUBE SCH ×2 (08:12→21:29)
[2018-09-06] MEDS: cloNIDine HCl 0.1 MG TABLET PO SCH (08:12)
[2018-09-06] MEDS: Glycopyrrolate 1 MG TABLET GTUBE SCH ×3 (08:16→21:30)
[2018-09-06] MEDS: Nystatin SUSP 5 ML UD.LIQ PO SCH ×2 (08:19→12:28)
--- NOTE | 2018-09-06 08:51 | Internal Med Progress Note ---
<Kya Hinojosa R - Last Filed: 09/06/18 14:25> Hospitalist Progress Note - Encounter Date of Encounter: 09/06/18 Time of Encounter: 08:51 - Subjective Interval History: Pt remains a&o x0. Palliative will be consulted for goals of care. Edema improving. Clonidine stopped and pt remains hypertensive. - Exam Vitals: Temp Pulse Resp BP Pulse Ox 99.7 F H 82 18 186/79 99 09/06/18 07:18 09/06/18 07:18 09/06/18 07:18 09/06/18 07:18 09/06/18 07:18 Exam: Constitutional - Comfortable. Does not open eyes to name. H - normocephalic EENT - Mucus membranes dry Neck - No plapable LAD Cardio - RRR. Occ PVC on monitor. Not tachycardic Respiratory - Scattered rhonchi bilaterally. No wheeze or rales. Abdomen - Soft. Does not appear tender. No mass felt. Extremities - Nonpitting edema noted throughout. Improved from yesterday. Skin - No visible rash. Warm and dry. Neuro - Not alert at this time. - Assessment and Plan (1) Edema extremities Current Visit: Yes Status: Acute Assessment and Plan: Albumin helped decrease peripheral edema Continue to monitor (2) Acute metabolic encephalopathy Current Visit: Yes Status: Acute Assessment and Plan: Encephalopathy unchanged at this time. Trying to stop any meds that may be contributing. Work up has been negative at [facility] and EEG normal here. (3) Pneumonia Current Visit: Yes Status: Acute Assessment and Plan: Pt with prior hx of Pseudomonas pneumonia. Currently on IV Zosyn for coverage. Further abx plan per ID service. (4) Sepsis Current Visit: Yes Status: Resolved Assessment and Plan: Pt admitted with sepsis presumed due to Pseudomonas (due to recent history). Resolved at this time. (5) Cellulitis Current Visit: Yes Status: Resolved Assessment and Plan: Resolved (6) S/P AAA (abdominal aortic aneurysm) repair Current Visit: Yes Status: Chronic Assessment and Plan: s/p recent repair of leaking AAA graft No acute issues. (7) CKD (chronic kidney disease) stage 3, GFR 30-59 ml/min Current Visit: Yes Status: Chronic Assessment and Plan: Creatinine has improved and is now wnl at 98. Continue to monitor. (8) Diabetes Current Visit: Yes Status: Chronic Assessment and Plan: Fair control at this time. Continue same plan of care. (9) Hypertension Current Visit: Yes Status: Chronic Assessment and Plan: BP uncontrolled. Med adjustments made yesterday and will be adjusted more if does not continue to improve. Stopping Clonidine - has COLD ROLL INSPECTOR acting properties DVT Prophylaxis: SQ Heparin - Time Spent with Patient Total time spent is greater than 50% in coordination of care (as documented) at patient's floor/unit and/or counseling patient: Internal Medicine: Result - Labs CBC & Chem 7: 09/06/18 03:22 09/06/18 03:22 Labs: Short CBC 09/06/18 Range/Units 03:22 WBC 8.2 (4.3-11.1) K/mcL Hgb 7.3 L (12.9-16.9) g/dL Hct 24.2 L (37.5-50.1) % Plt Count 183 (140-400) K/mcL BMP 09/06/18 03:22 Sodium 136 Potassium 4.3 Chloride 103 Carbon Dioxide 27 BUN 36 H Creatinine 0.95 Glucose 184 H Calcium 8.1 L Liver Function 09/06/18 Range/Units 03:22 Total Bilirubin 0.5 (0.3-1.0) mg/dL AST 13 (13-39) Units/L ALT 14 (7-52) Units/L Alkaline Phosphatase 53 (34-104) Units/L Albumin 2.9 L (3.5-5.7) g/dL Consult Discharge Plan - Plan [facility]errals: [facility] [Primary Care Provider[facility] - <Napoleon Yeager - Last Filed: 09/06/18 18:49> Hospitalist Progress Note - Encounter Date of Encounter: 09/06/18 - Exam Vitals: Temp Pulse Resp BP Pulse Ox 99.7 F H 80 22 159/71 100 09/06/18 16:52 09/06/18 16:52 09/06/18 16:52 09/06/18 16:52 09/06/18 16:52 - Assessment and Plan (1) Edema extremities Current Visit: Yes Status: Acute (2) Acute metabolic encephalopathy Current Visit: Yes Status: Acute (3) Sepsis Current Visit: Yes Status: Resolved (4) Pneumonia Current Visit: Yes Status: Acute (5) S/P AAA (abdominal aortic aneurysm) repair Current Visit: Yes Status: Chronic (6) Hypertension Current Visit: Yes Status: Chronic (7) DVT prophylaxis Current Visit: Yes Status: Acute (8) Diabetes Current Visit: Yes Status: Chronic (9) CKD (chronic kidney disease) stage 3, GFR 30-59 ml/min Current Visit: Yes Status: Chronic 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 (11) Chronic hypoxemic respiratory failure Current Visit: Yes Status: Chronic - Time Spent with Patient Total time spent is greater than 50% in coordination of care (as documented) at patient's floor/unit and/or counseling patient: Internal Medicine: Result - Labs CBC & Chem 7: 09/06/18 03:22 09/06/18 03:22 Labs: Short CBC 09/06/18 Range/Units 03:22 WBC 8.2 (4.3-11.1) K/mcL Hgb 7.3 L (12.9-16.9) g/dL Hct 24.2 L (37.5-50.1) % Plt Count 183 (140-400) K/mcL BMP 09/06/18 03:22 Sodium 136 Potassium 4.3 Chloride 103 Carbon Dioxide 27 BUN 36 H Creatinine 0.95 Glucose 184 H Calcium 8.1 L Liver Function 09/06/18 Range/Units 03:22 Total Bilirubin 0.5 (0.3-1.0) mg/dL AST 13 (13-39) Units/L ALT 14 (7-52) Units/L Alkaline Phosphatase 53 (34-104) Units/L Albumin 2.9 L (3.5-5.7) g/dL - Attending Attestation I examined this patient and my medical decision-making was reviewed with the Resident Physician on 09/06/18. I agree with the documented findings, disposition and treatment plan as described except to the extent set forth below. Mr Busby is currently admitted for sepsis due to Pseudomonas. He remains m oderate risk at this time. Mr Busby is essentially the same. No issues overnight. Tolerating abx and tube feeds. Exam Unresponsive. Comfortable Mucus membranes dry Heart reg Rhonchi present Abd soft Edema little better today. I/P 1. Encephalopathy 2. Trach/peg Appreciate palliative care input. Further diagnoses and plan as above. <Kya Hinojosa - Last Filed: 09/06/18 14:25> (3) Pneumonia Qualifiers: Pneumonia type: due to Pseudomonas Laterality: left Lung location: lower lobe of lung Qualified Code(s): J15.1 - Pneumonia due to Pseudomonas (4) Sepsis Qualifiers: Sepsis type: Pseudomonas Qualified Code(s): A41.52 - Sepsis due to Pseudomonas (5) Cellulitis Qualifiers: Site of cellulitis: extremity Laterality: right Qualified Code(s): L03.113 - Cellulitis of right upper limb (8) Diabetes Qualifiers: Diabetes mellitus type: type 2 Diabetes mellitus penitentiary insulin use: with oil heaterman use Diabetes mellitus complication status: with unspecified complications Qualified Code(s): E11.8 - Type 2 diabetes mellitus with unspecified complications; Z79.4 - assisted (current) use of insulin (9) Hypertension Qualifiers: Hypertension type: essential hypertension Qualified Code(s): I10 - Essential (primary) hypertension <Napoleon Yeager - Last Filed: 09/06/18 18:49> (3) Sepsis Qualifiers: Sepsis type: Pseudomonas Qualified Code(s): A41.52 - Sepsis due to Pseudomonas (4) Pneumonia Qualifiers: Pneumonia type: due to Pseudomonas Laterality: left Lung location: lower lobe of lung Qualified Code(s): J15.1 - Pneumonia due to Pseudomonas (6) Hypertension Qualifiers: Hypertension type: essential hypertension Qualified Code(s): I10 - Essential (primary) hypertension (8) Diabetes Qualifiers: Diabetes mellitus type: type 2 Diabetes mellitus oil heaterman insulin use: with penitentiary use Diabetes mellitus complication status: with unspecified complications Qualified Code(s): E11.8 - Type 2 diabetes mellitus with unspecified complications; Z79.4 - long term care administrator (current) use of insulin
[2018-09-06] MEDS: MOMETASONE FUROATE 100 mcg Inhaler IH SCH ×2 (09:51→20:07)
--- NOTE | 2018-09-06 10:05 | Infectious Disease Progress No ---
Date of Encounter: 09/06/18 Time of Encounter: 08:40 - Assessment and Plan (1) Sepsis Current Visit: Yes Status: Resolved The patient had 2 sepsis criteria on admission. Likely secondary to pneumonia versus right upper extremity cellulitis vs UTI. Improved. White blood cell count remains normal. Tachycardia and tachypnea Resolved. Blood cultures drawn 09/01/18 are no growth to date 2 sets. Recommendations: Await blood cultures. Exchange Al catheter. Continue vancomycin IV. Pharmacy to dose. Goal trough approximately 15. ( day 6) Continue Zosyn 3.375 g IV every 8 hours. (day 6) Duration of treatment depends on the clinical picture. Monitor renal function and for drug toxicity and dose adjust antibiotics. Qualifiers: Sepsis type: Pseudomonas Qualified Code(s): A41.52 - Sepsis due to Pseudomonas (2) UTI (urinary tract infection) Current Visit: Yes Status: Acute True infection versus colonization. Urine culture at [facility] was also positive for pansensitive Pseudomonas. The patient had been on IV Zosyn for several days prior to admission but continues to have Pseudomonas in the urine. Currently on IV Zosyn. Qualifiers: Urinary tract infection type: catheter-associated UTI Indwelling urinary catheter type: indwelling urethral catheter Encounter type: initial encounter Qualified Code(s): T83.511A - Infection and inflammatory reaction due to indwelling urethral catheter, initial encounter; N39.0 - Urinary tract infection, site not specified (3) Pneumonia Current Visit: Yes Status: Acute Causative organism: Unclear. Previous BAL and sputum cultures at [facility] were positive for pseudomonas and MSSA. Chest x-ray shows a left lower lobe consolidation consistent with pneumonia. Urinary antigen tests were negative. Sputum culture was contaminated x2. Respiratory infectious panel negative. MRSA screen negative. Currently on vancomycin and Zosyn. Qualifiers: Pneumonia type: due to Pseudomonas Laterality: left Lung location: lower lobe of lung Qualified Code(s): J15.1 - Pneumonia due to Pseudomonas (4) Cellulitis Current Visit: Yes Status: Resolved Location: Right upper extremity. The patient did have an IV in his arm and was receiving IV antibiotics there prior to admission. Venous Doppler study negative for SVT or DVT. Improved. Currently on vancomycin and Zosyn. Qualifiers: Site of cellulitis: extremity Laterality: right Qualified Code(s): L03.113 - Cellulitis of right upper limb (5) Acute kidney injury Current Visit: Yes Status: Resolved Likely secondary to sepsis. Unsure baseline. Resolved. Continue to trend. Monitor renal function and does just antibiotics. Avoid nephrotoxins as able. (6) Acute metabolic encephalopathy Current Visit: Yes Status: Acute Ongoing for the last month. Extensive workup at [facility] including MRI, EEG, and CT were negative for etiology. CVA versus anoxic brain injury versus other. EEG completed here was essentially normal. Consider palliative care to evaluate. Continue to monitor closely. (7) Bacteremia Current Visit: Yes Status: Resolved Blood cultures drawn 08/28/18 at [facility] were +2 out of 2 sets for pansensitive pseudomonas. Repeat blood cultures drawn 08/31/18 are no growth to date. Blood cultures drawn here 09/01/18 are no growth to date 2 sets. Was discharged to [facility] on Zosyn 4.5 g IV every 8 hours. Currently on IV Zosyn. (8) CKD (chronic kidney disease) stage 3, GFR 30-59 ml/min Current Visit: Yes Status: Chronic (9) Diabetes Current Visit: Yes Status: Chronic Recommend strict glucose control per the primary team. Qualifiers: Diabetes mellitus type: type 2 Diabetes mellitus assisted insulin use: with intermediate frame tender use Diabetes mellitus complication status: with unspecified complications Qualified Code(s): E11.8 - Type 2 diabetes mellitus with unspecified complications; Z79.4 - intermediate manager (current) use of insulin (10) Hypertension Current Visit: Yes Status: Chronic Qualifiers: Hypertension type: essential hypertension Qualified Code(s): I10 - Essential (primary) hypertension (11) S/P AAA (abdominal aortic aneurysm) repair Current Visit: Yes Status: Chronic Status post EVAR in 2013. Status post emergent endovascular repair of ruptured AAA with aortic cuff and right groin cutdown for delivery of device 08/01/18 at [facility]. 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 No acute events noted overnight. Mental status remains unchanged. Non-purposeful eye opening noted during exam, but the patient does not follow commands or attempt to communicate.. Patient remains unresponsive to verbal, tactile, and painful stimuli. Review of systems unobtainable. Infect Dis PN-Objective Data - Labs CBC & Chem 7: 09/07/18 04:50 09/07/18 04:50 Labs: Laboratory Results - last 24 hr 09/05/18 09/05/18 09/05/18 07:29 12:45 16:33 WBC RBC Hgb Hct MCV MCH MCHC RDW Plt Count MPV Sodium Potassium Chloride Carbon Dioxide BUN Creatinine Est GFR ( Amer) Est GFR (Non-Af Amer) BUN/Creatinine Ratio Glucose POC Glucose 175 H 209 H 210 H Calculated Osmolality Calcium Total Bilirubin AST ALT Alkaline Phosphatase Serum Total Protein Albumin Globulin Albumin/Globulin Ratio 09/05/18 09/05/18 09/06/18 20:36 23:41 03:22 WBC 8.2 RBC 2.58 L Hgb 7.3 L Hct 24.2 L MCV 93.8 MCH 28.3 MCHC 30.2 L RDW 15.2 H Plt Count 183 MPV 8.8 L Sodium Potassium Chloride Carbon Dioxide BUN Creatinine Est GFR ( Amer) Est GFR (Non-Af Amer) BUN/Creatinine Ratio Glucose POC Glucose 208 H 201 H Calculated Osmolality Calcium Total Bilirubin AST ALT Alkaline Phosphatase Serum Total Protein Albumin Globulin Albumin/Globulin Ratio 09/06/18 09/06/18 03:22 05:04 WBC RBC Hgb Hct MCV MCH MCHC RDW Plt Count MPV Sodium 136 Potassium 4.3 Chloride 103 Carbon Dioxide 27 BUN 36 H Creatinine 0.95 Est GFR ( Amer) > 60 Est GFR (Non-Af Amer) > 60 BUN/Creatinine Ratio 38 H Glucose 184 H POC Glucose 188 H Calculated Osmolality 295 Calcium 8.1 L Total Bilirubin 0.5 AST 13 ALT 14 Alkaline Phosphatase 53 Serum Total Protein 5.7 L Albumin 2.9 L Globulin 2.8 Albumin/Globulin Ratio 1.0 L Cultures: Cultures 09/01/18 01:40 Blood Culture - Final Peripheral Venipuncture No growth. Final report. 09/01/18 01:44 Blood Culture - Final Peripheral Venipuncture No growth. Final report. 09/01/18 01:45 Urine Culture - Final Urine,[place] Pseudomonas aeruginosa 09/02/18 21:15 Nasal Screen MRSA/MSSA - Final Nose 09/02/18 01:00 Wound Culture - Final Groin No growth. 09/02/18 15:47 Sputum Culture - Final Trachea 08/31/18 01:45 Legionella Antigen - Final Urine,[place] Streptococcus pneumoniae Antigen (M - Final 09/01/18 06:14 Sputum Culture - Final Sputum Serology 09/03/18 09/02/18 09/01/18 Range/Units 09:00 15:47 01:45 Urine Color Yellow (Yellow) Urine Clarity Cloudy A (Clear) Urine pH 6.0 (5.0-8.0) pH Units Ur Specific Lipan 1.018 (1.010-1.025) Urine Protein 100 H (Neg-Trace) mg/dL Urine Glucose (UA) Normal (Normal) mg/dL Urine Ketones Negative (Negative) mg/dL Urine Blood Large H (Negative) Urine Nitrite Negative (Negative) Urine Bilirubin Negative (Negative) Urine Urobilinogen Normal (Normal) mg/dL Ur Leukocyte Esterase Moderate H (Negative) Urine Microscopic RBC TNTC H (0-3) per hpf Urine Microscopic WBC 15-30 H (0-3) per hpf Ur Squamous Epith Cells Many H (None-Few) per lpf Urine Bacteria None Seen (None-Few) per hpf Hyaline Casts None Seen (None-Few) per lpf Urine Yeast Test Not Performed Ur Culture Indicated? NO. A (NO) Nasal Screen MRSA (PCR) Negative (Negative) Chlamy pneumoniae PCR Not Detected (Not Detect) Adenovirus (PCR) Not Detected (Not Detect) B. pertussis DNA (PCR) Not Detected (Not Detect) B.parapertussis DNA PCR Not Detected (Not Detect) Coronavirus OC43 (PCR) Not Detected (Not Detect) Coronavirus HKU1 (PCR) Not Detected (Not Detect) Coronavirus 229E (PCR) Not Detected (Not Detect) Coronavirus NL63 (PCR) Not Detected (Not Detect) Human Metapneumovir PCR Not Detected (Not Detect) Influenza A (H1) PCR Not Detected (Not Detect) Influ A (H1N1/09) PCR Not Detected (Not Detect) Influenza A (H3) PCR Not Detected (Not Detect) Influenza A Untype (PCR) Not Detected (Not Detect) Influenza Type B (PCR) Not Detected (Not Detect) M.pneumoniae DNA (PCR) Not Detected (Not Detect) Parainfluenza 1 (PCR) Not Detected (Not Detect) Parainfluenza 2 (PCR) Not Detected (Not Detect) Parainfluenza 3 (PCR) Not Detected (Not Detect) Parainfluenza 4 (PCR) Not Detected (Not Detect) RSV (PCR) Not Detected (Not Detect) Entero/Rhino (PCR) Not Detected (Not Detect) Exam - Constitutional Vitals: Temp Pulse Resp BP Pulse Ox 99.7 F H 82 18 186/79 100 09/06/18 07:18 09/06/18 07:18 09/06/18 09:51 09/06/18 07:18 09/06/18 09:51 General appearance: average body habitus, no acute distress, no cooperative - Head Head exam: Present: atraumatic, normal inspection, normocephalic - Eye Eye exam: Present: normal appearance, PERRL Pupils: Present: normal accommodation - ENT ENT exam: Present: mucous membranes dry - Neck Neck exam: Present: normal inspection Additional comments: Tracheostomy midline with O2 via trach mask. - Respiratory Respiratory exam: Present: rhonchi (Scattered throughout). Absent: rales, respiratory distress, wheezes - Cardiovascular Cardiovascular exam: Present: RRR, +S1, +S2 - GI/Abdominal GI/Abdominal exam: Present: normal bowel sounds, soft. Absent: distended, tenderness Additional comments: PEG tube noted with tube feeds infusing. Al catheter noted to be draining clear urine. - Extremities Exam Extremities exam: Present: normal inspection. Absent: joint swelling, pedal edema, tenderness - Neurological Exam Neurological exam: Present: altered (Eyes open spontaneously during exam, but does not track me around the room or perform commands or attempt to communicate. No purposeful movement of the extremities noted.) - Skin Skin exam: Present: dry, intact, normal color, warm Consult Discharge Plan - Plan [facility]errals: [facility] [Primary Care Provider] -
--- NOTE | 2018-09-06 13:47 | Palliative - Consult Note ---
Date of Encounter: 09/06/18 Time of Encounter: 11:30 - Assessment and Plan (1) Goals of care, counseling/discussion Current Visit: Yes Status: Acute Assessment and plan: Patients daughter Isa Busby present at bedside. Isa reports patient no longer reacts to people. Patient came from long term; however, family does not want him to go back to long term, wants him home with family care and HH. Patient has a trach/PEG. 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 When is not home, daughter Isa and her children are present to care for patient. Patient has no DME equipment at home, needs hospital bed, trach care kits, oxygen, TF supplies, and HH. Family unsure of their options regarding HH and DME as has [facility] and [facility]. Patient is a member of the Red team. Isa reports patients Marie cannot be here today as she is at work, requests her not be called while at work, as she will worry. Arranged family meeting tomorrow for 11 am, when Marie and Isa can both be present. Inquired if CODE STATUS had been discussed, Isa denied. Isa reported she thinks her mom would not want her dad to go through CPR, but cannot really be sure. Will review in tomorrows goals of care discussion. Patient to remain FULL CODE at this time. Notified Aly TONEY with family's current inquiries regarding DME and HH. Requested SW to join family meeting at 11 am tomorrow. (2) Acute metabolic encephalopathy Current Visit: Yes Status: Acute Assessment and plan: EEG negative. (3) SIRS (systemic inflammatory response syndrome) Current Visit: Yes Status: Acute (4) Hypertension Current Visit: Yes Status: Chronic Assessment and plan: BP 169/70. Management per primary team. 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 Qualifiers: Sepsis type: Pseudomonas Qualified Code(s): A41.52 - Sepsis due to Pseudomonas Palliative-CN HPI - Data of Consult Patient: new to practice (10 minute chart review; 30 minute meeting with family to discuss goals of care; 5 minute assessment; 5 minute update with SW for further GOC meeting/DME/ needs) Consult date: 09/06/18 Requesting Physician: Napoleon Yeager DO Primary Care Provider: [facility] - Consult Narrative Palliative Care/Comfort Measures: Palliative care Reason for consult: goasl of treatment History of present illness: Mr. Busby is a 77 year old male Arrived to [place] [facility] on 09/01/18 as a transfer from [facility] for fever and dyspnea. 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 At that ER trip, patient was flown to [facility] for AAA repair. Throughout the course of [facility] stay, patient received a 1 time dose of Haldol for NG initiation; daughter reports after that dose patient has never returned to previous mentation status. Patient was sent to [facility] on 09/01/18 at 3 pm and by 11 pm had been transferred back to [place]. Patient met SIRS criteria and respiratory distress leading to admission for pneumonia; family refused transfer back to [facility]. PMH: arthritis, DVT, diabetes, hypertension. ID consulted for management of antibiotic recommendations, for s/p AAA repair. EEG completed, negative findings; due to change in mentation status. Daughter reports [facility] could not find cause of change in mentation also. Palliative care consulted for goals of care discussion. Patient lying in bed, non-reactive to stimulation upon arrival for assessment. No nonverbal signs of pain/discomfort present. Patient tolerating tube feeding well, no vomiting noted. CC: Napoleon Yeager DO - Time Spent with Patient Time: Total time spent is greater than 50% in coordination of care (as documented) at patient's floor/unit and/or counseling patient: Time with patient: 45 minutes Past Med Surg Social Fam HX - Past Medical History Medical history: arthritis, DVT, diabetes, hypertension, other Additional medical history: AAA repair Psychiatric history: no psych history - Past Surgical History Surgical History: appendectomy, other Additional surgical history: appy, AAA aneurysm repair - Social History Smoking Status: Former smoker Smokeless Tobacco Status: No Alcohol use: none Drug use: none Medications and Allergies Abatacept [Orencia] 125 mg SQ QWEEK 09/01/18 [History] Alendronate Sodium 70 mg PO QWEEK 09/01/18 [History] Aspirin 81 mg GTUBE DAILY 09/01/18 [History] Atorvastatin [Lipitor] 80 mg PO HS 09/01/18 [History] Carvedilol [Coreg] 25 mg PO BID 09/01/18 [History] Cholecalciferol (Vitamin D3) [Vitamin D] 2,000 unit PO DAILY 09/01/18 [History] Docusate [Colace] 100 mg GTUBE BID 09/01/18 [History] Esomeprazole Magnesium [Nexium] 40 mg GTUBE DAILY 09/01/18 [History] Fluticasone Furoate [Arnuity Ellipta] 1 spr NS BID 09/01/18 [History] Leflunomide [Arava] 10 mg PO DAILY 09/01/18 [History] Loratadine [Allergy Relief] 10 mg PO DAILY 09/01/18 [History] Modafinil [Provigil] 100 mg GTUBE DAILY 09/01/18 [History] NIFEdipine [Nifedipine ER] 60 mg PO DAILY 09/01/18 [History] Nystatin [Nystatin Suspension] 500,000 units PO QID 09/01/18 [History] [place]-3 Acid Ethyl Esters [Triklo] 1 gm PO BID 09/01/18 [History] Omeprazole [PriLOSEC] 40 mg PO DAILY 09/01/18 [History] Piperacillin Sodium/Tazobactam [Piperacil-Tazobact 4.5 gm Vial] 4.5 gm IV Q8HR 09/01/18 [History] amLODIPine [Norvasc] 10 mg PO DAILY 09/01/18 [History] cloNIDine HCl [CloNIDine HCl] 0.1 mg PO BID 09/01/18 [History] glipiZIDE [Glucotrol] 5 mg PO BID 09/01/18 [History] Acetaminophen [Tylenol] 650 mg PO Q6H PRN 09/02/18 [History] Lisinopril/Hydrochlorothiazide [Zestoretic 20-25 mg Tablet] 1 tab PO DAILY 09/02/18 [History] Allergy/AdvReac Type Severity Reaction Status Date / Time sulfamethoxazole Allergy See Verified 08/01/18 08:07 [From ] Comments trimethoprim [From ] Allergy See Verified 08/01/18 08:07 Comments morphine AdvReac See Verified 09/01/18 00:00 Comments ROS unobtainable: due to mental status - Gastrointestinal Gastrointestinal: no vomiting Palliative Care-Exam - Constitutional Vitals: Temp Pulse Resp BP Pulse Ox 99.8 F H 83 18 169/70 100 09/06/18 12:03 09/06/18 12:03 09/06/18 12:03 09/06/18 12:03 09/06/18 12:03 General appearance: Present: average body habitus, no acute distress, obese. Absent: cooperative - Head Head Exam: Present: atraumatic - Expanded Head Exam Head exam expanded IM: Absent: abrasion, contusion, hematoma, raccoon eyes - Eye Eye exam: Present: normal appearance. Absent: periorbital swelling, periorbital tenderness Pupils: Absent: irregular - ENT ENT exam: Present: mucous membranes dry, normal external ear exam - Expanded ENT Exam Mouth Exam: Absent: drooling - Neck Neck exam: Present: normal inspection - Respiratory Respiratory exam: Present: rhonchi. Absent: accessory muscle use, respiratory distress - Cardiovascular Cardiovascular exam: Present: +S1, +S2 - GI/Abdominal Exam GI/Abdominal exam: Present: normal bowel sounds, soft. Absent: tenderness - Expanded GI/Abdominal Exam GI/Abdominal exam: Absent: ascites - Rectal Rectal Exam: Present: deferred - Catheter Type: Urethral (Al) - Extremities Exam Extremities exam: Present: normal inspection. Absent: calf tenderness, pedal edema, tenderness - Back Exam Back exam: Present: normal inspection - Neurological Exam Neurological exam: Present: altered. Absent: oriented X3 - Expanded Neurological Exam Patient oriented to: Absent: person, place, time Speech: Present: total aphasia Coma Scale Eye Opening: To Pain Coma Scale Motor Response: Withdraws to Pain Coma Scale Verbal Response: None Coma Scale Total: 7 - Psychiatric Psychiatric exam: Present: flat affect - Skin Skin exam: Present: dry, warm. Absent: diaphoretic Internal Medicine - CN: Reslt - Labs CBC & Chem 7: 09/06/18 03:22 09/06/18 03:22 Labs: Short CBC 09/06/18 Range/Units 03:22 WBC 8.2 (4.3-11.1) K/mcL Hgb 7.3 L (12.9-16.9) g/dL Hct 24.2 L (37.5-50.1) % Plt Count 183 (140-400) K/mcL BMP 09/06/18 03:22 Sodium 136 Potassium 4.3 Chloride 103 Carbon Dioxide 27 BUN 36 H Creatinine 0.95 Glucose 184 H Calcium 8.1 L Liver Function 09/06/18 Range/Units 03:22 Total Bilirubin 0.5 (0.3-1.0) mg/dL AST 13 (13-39) Units/L ALT 14 (7-52) Units/L Alkaline Phosphatase 53 (34-104) Units/L Albumin 2.9 L (3.5-5.7) g/dL Consult Discharge Plan - Plan [facility]errals: [facility] [Primary Care Provider] - Palliative Quality Palliative Quality: Screen for Code Status: Yes, Screen for Goals of Care: Yes, Screen for Pain: Yes, If Pain Regimen Started, Initiate Bowel Regimen: NA, Screen for Nausea/Vomitting: Yes Code Status: 09/01/18 08:21 Resuscitation Status: Active [RES] Routine Comment: Resuscitation Status: Full Code Palliative Scale - Palliative Performance Scale How ambulatory is this patient?: Totally bed bound What is patient's level of activity and evidence of disease?: Unable to do any activity, Extensive disease How much self-care assistance does patient require?: Total care How much oral intake does the patient have?: Mouth care only What is this patient's level of consciousness?: Drowsy or coma with or without confusion Palliative Performance Score: 10 %
[2018-09-07] MEDS: Insulin LISPRO 300 UNITS/3 ML VIAL SQ SCH ×6 (01:05→21:44)
[2018-09-07] MEDS: Piperacillin/Tazobactam 3.375 GM in 0.9 % Sodium Chloride Mini Bag 100 ML IVPB SCH ×3 (01:07→17:07)
[2018-09-07] MEDS: *HR* Heparin 5,000 UNIT/ML VIAL SQ SCH ×2 (04:44→17:11)
[2018-09-07 05:12] LABS: Hematocrit 25.3 % (37.5-50.1); Hemoglobin 7.8 g/dL (12.9-16.9); Mean Corpuscular HGB Conc 30.8 g/dL (31.6-35.5); Mean Corpuscular Hemoglobin 28.8 pg (28.0-33.3); Mean Corpuscular Volume 93.4 fL (83.0-100.0); Mean Platelet Volume 8.7 fL (9.4-12.4); Platelet Count 185 K/mcL (140-400); Red Blood Count 2.71 M/mcL (4.19-5.50); Red Cell Distribution Width 15.4 % (11.5-14.5)
[2018-09-07 05:31] LABS: BUN/Creatinine Ratio 32 (6-26); Blood Urea Nitrogen 33 mg/dL (8-23); Calcium 8.1 mg/dL (8.6-10.3); Carbon Dioxide 25 mEq/L (23-29); Chloride 105 mEq/L (98-107); Glucose 166 mg/dL (70-105); Osmolality,Calculated 295 (280-300); Potassium 4.6 mEq/L (3.5-5.1); Sodium 137 mEq/L (136-145); eGFR For Non-African Americans > 60 (> 60)
[2018-09-07] MEDS: MOMETASONE FUROATE 100 mcg Inhaler IH SCH ×2 (07:16→23:01)
[2018-09-07] MEDS: Glycopyrrolate 1 MG TABLET GTUBE SCH ×3 (08:31→21:44)
[2018-09-07] MEDS: amLODIPine 5 MG TABLET PO SCH (08:31)
[2018-09-07] MEDS: Loratadine 10 MG TABLET PO SCH (08:31)
[2018-09-07] MEDS: Aspirin 81 MG TAB.CHEW PO SCH (08:31)
[2018-09-07] MEDS: cloNIDine HCl 0.1 MG TABLET PO SCH (08:32)
[2018-09-07] MEDS: Docusate Oral Soln 100 MG/10 ML UDC GTUBE SCH ×2 (08:32→21:44)
--- NOTE | 2018-09-07 10:16 | Palliative Progress Note ---
Date of Encounter: 09/07/18 Time of Encounter: 09:00 - Assessment and plan (1) Goals of care, counseling/discussion Current Visit: Yes Status: Acute Assessment and plan: Family meeting set with patient's , daughter, and SW at 11 am. [id number]: Conducted goals of care meeting with patient's Marie, Daughter Isa, Screw Down Eloy, Keely Roofing Machine Operator and Aly TONEY. Expressed desire to have patient discharged home with Lety SHAFER at Discharge. DME needs: Bed, Oxygen, Trach care kits, and TF supplies. Desires to change CODE STATUS to DNRCCA, ok with short term ventilation. State form completed. Family will need contacted prior to discharge for equipment to be delivered. SW and Case Management is assisting in the set up of equipment and HH company. Family desires to allow patient some more time to attempt to wake up as patient has no chronic health conditions causing inability to wake up. Hospice education provided and family is aware of appropriate time to bring in hospice care. (2) Acute metabolic encephalopathy Current Visit: Yes Status: Acute Assessment and plan: Patient remains non-responsive. EEG negative. (3) SIRS (systemic inflammatory response syndrome) Current Visit: Yes Status: Acute Assessment and plan: WBC 9.3; temperature elevated; however, has remained afebrile. (4) Hypertension Current Visit: Yes Status: Chronic Assessment and plan: BP 169/70. Management per primary team with Lisinopril/HCTZ, Norvasc, Clonidine, and Coreg. 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 Qualifiers: Site of cellulitis: extremity Laterality: right Qualified Code(s): L03.113 - Cellulitis of right upper limb (7) Sepsis Current Visit: Yes Status: Resolved Qualifiers: Sepsis type: Pseudomonas Qualified Code(s): A41.52 - Sepsis due to Pseudomonas - Time Spent With Patient Total time spent is greater than 50% in coordination of care (as documented) at patient's floor/unit and/or counseling patient: - Subjective Interval history: Patient lying in bed with eyes closed upon arrival for assessment. Patient made no reaction to physical, verbal, or tactile stimulation. No family present at bedside. Patient tolerating tube feeding well. No nonverbal signs of pain, anxiety. Respirations calm and unlabored. - Constitutional Vitals: Abnormal lab results RBC 2.71 M/mcL (4.19-5.50) L 09/07/18 04:50 Hgb 7.8 g/dL (12.9-16.9) L 09/07/18 04:50 Hct 25.3 % (37.5-50.1) L 09/07/18 04:50 MCHC 30.8 g/dL (31.6-35.5) L 09/07/18 04:50 RDW 15.4 % (11.5-14.5) H 09/07/18 04:50 MPV 8.7 fL (9.4-12.4) L 09/07/18 04:50 BUN 33 mg/dL (8-23) H 09/07/18 04:50 BUN/Creatinine Ratio 32 (6-26) H 09/07/18 04:50 Glucose 166 mg/dL (70-105) H 09/07/18 04:50 POC Glucose 168 mg/dL (70-99) H 09/06/18 19:54 Calcium 8.1 mg/dL (8.6-10.3) L 09/07/18 04:50 Serum Total Protein 5.7 g/dL (6.4-8.9) L 09/06/18 03:22 Albumin 2.9 g/dL (3.5-5.7) L 09/06/18 03:22 Albumin/Globulin Ratio 1.0 (1.1-2.2) L 09/06/18 03:22 Urine Clarity Cloudy (Clear) A 09/01/18 01:45 Urine Protein 100 mg/dL (Neg-Trace) H 09/01/18 01:45 Urine Blood Large (Negative) H 09/01/18 01:45 Ur Leukocyte Esterase Moderate (Negative) H 09/01/18 01:45 Urine Microscopic RBC TNTC per hpf (0-3) H 09/01/18 01:45 Urine Microscopic WBC 15-30 per hpf (0-3) H 09/01/18 01:45 Ur Squamous Epith Cells Many per lpf (None-Few) H 09/01/18 01:45 Ur Culture Indicated? NO. (NO) A 09/01/18 01:45 Vancomycin Trough 18 mcg/mL (5-10) H 09/06/18 16:00 General appearance: Present: no acute distress, obese - Head Head exam: Present: atraumatic, normal inspection - Eye Eye exam: Absent: periorbital swelling, periorbital tenderness Pupils: Present: normal accommodation, PERRL - ENT ENT exam: Present: mucous membranes dry, normal external ear exam - Neck Neck exam: Present: normal inspection. Absent: tenderness - Respiratory Respiratory exam: Present: CTAB. Absent: accessory muscle use, respiratory distress - Cardiovascular Cardiovascular exam: Present: +S1, +S2 - GI/Abdominal GI/Abdominal exam: Present: normal bowel sounds, soft. Absent: tenderness - Rectal Rectal exam: Present: deferred - Extremities Exam Extremities exam: Absent: pedal edema - Expanded Upper Extremity Exam General: Absent: normal inspection (peripheral edema 1+) - Back Exam Back exam: Present: normal inspection - Neurological Exam Neurological exam: Present: altered. Absent: alert - Expanded Neurological Exam Neurological exam: Present: total aphasia Patient oriented to: Absent: person, place, time Coma Scale Eye Opening: None Coma Scale Motor Response: Abnormal Flexion Coma Scale Verbal Response: None Coma Scale Total: 5 - Psychiatric Psychiatric exam: Present: flat affect - Skin Skin exam: Present: dry, pallor, warm Palliative Quality Palliative Quality: Screen for Code Status: Yes, Screen for Goals of Care: Yes, Screen for Pain: Yes, If Pain Regimen Started, Initiate Bowel Regimen: NA, S creen for Nausea/Vomitting: Yes Code Status: 09/01/18 08:21 Resuscitation Status: Active [RES] Routine Comment: Resuscitation Status: Full Code - Labs CBC & Chem 7: 09/07/18 04:50 09/07/18 04:50 Labs: Laboratory Results - last 24 hr 09/06/18 09/06/18 09/06/18 07:23 12:07 16:00 WBC RBC Hgb Hct MCV MCH MCHC RDW Plt Count MPV Sodium Potassium Chloride Carbon Dioxide BUN Creatinine Est GFR ( Amer) Est GFR (Non-Af Amer) BUN/Creatinine Ratio Glucose POC Glucose 185 H 159 H Calculated Osmolality Calcium Vancomycin Trough 18 H 09/06/18 09/06/18 09/07/18 16:55 19:54 04:50 WBC 9.3 RBC 2.71 L Hgb 7.8 L Hct 25.3 L MCV 93.4 MCH 28.8 MCHC 30.8 L RDW 15.4 H Plt Count 185 MPV 8.7 L Sodium Potassium Chloride Carbon Dioxide BUN Creatinine Est GFR ( Amer) Est GFR (Non-Af Amer) BUN/Creatinine Ratio Glucose POC Glucose 167 H 168 H Calculated Osmolality Calcium Vancomycin Trough 09/07/18 04:50 WBC RBC Hgb Hct MCV MCH MCHC RDW Plt Count MPV Sodium 137 Potassium 4.6 Chloride 105 Carbon Dioxide 25 BUN 33 H Creatinine 1.03 Est GFR ( Amer) > 60 Est GFR (Non-Af Amer) > 60 BUN/Creatinine Ratio 32 H Glucose 166 H POC Glucose Calculated Osmolality 295 Calcium 8.1 L Vancomycin Trough Palliative Scale - Palliative Performance Scale How ambulatory is this patient?: Totally bed bound What is patient's level of activity and evidence of disease?: Unable to do any activity, Extensive disease How much self-care assistance does patient require?: Total care How much oral intake does the patient have?: Mouth care only What is this patient's level of consciousness?: Drowsy or coma with or without confusion Palliative Performance Score: 10 % Consult Discharge Plan - Plan [facility]errals: [facility] [Primary Care Provider] -
--- NOTE | 2018-09-07 11:43 | Infectious Disease Progress No ---
Date of Encounter: 09/07/18 Time of Encounter: 09:00 - Assessment and Plan (1) Sepsis Current Visit: Yes Status: Resolved The patient had 2 sepsis criteria on admission. Likely secondary to pneumonia versus right upper extremity cellulitis vs UTI. Improved. White blood cell count remains normal. Tachycardia and tachypnea Resolved. Blood cultures drawn 09/01/18 are negative 2 sets. Recommendations: Exchange Al catheter. Continue vancomycin IV. Pharmacy to dose. Goal trough approximately 15. ( day 7) Continue Zosyn 3.375 g IV every 8 hours. (day 7) Duration of treatment depends on the clinical picture. Can likely de-escalate to oral Levaquin to complete a 14 day course (through 09/14/18) and doxycycline to complete a 10 day course (through 09/10/18). Monitor renal function and for drug toxicity and dose adjust antibiotics. Qualifiers: Sepsis type: Pseudomonas Qualified Code(s): A41.52 - Sepsis due to Pseudomonas (2) UTI (urinary tract infection) Current Visit: Yes Status: Acute True infection versus colonization. Urine culture at [facility] was also positive for pansensitive Pseudomonas. The patient had been on IV Zosyn for several days prior to admission but continues to have Pseudomonas in the urine. Currently on IV Zosyn. Qualifiers: Urinary tract infection type: catheter-associated UTI Indwelling urinary catheter type: indwelling urethral catheter Encounter type: initial encounter Qualified Code(s): T83.511A - Infection and inflammatory reaction due to indwelling urethral catheter, initial encounter; N39.0 - Urinary tract infection, site not specified (3) Pneumonia Current Visit: Yes Status: Acute Causative organism: Unclear. Previous BAL and sputum cultures at [facility] were positive for pseudomonas and MSSA. Chest x-ray shows a left lower lobe consolidation consistent with pneumonia. Urinary antigen tests were negative. Sputum culture was contaminated x2. Respiratory infectious panel negative. MRSA screen negative. Currently on vancomycin and Zosyn. Qualifiers: Pneumonia type: due to Pseudomonas Laterality: left Lung location: lower lobe of lung Qualified Code(s): J15.1 - Pneumonia due to Pseudomonas (4) Cellulitis Current Visit: Yes Status: Resolved Location: Right upper extremity. The patient did have an IV in his arm and was receiving IV antibiotics there prior to admission. Venous Doppler study negative for SVT or DVT. Improved. Currently on vancomycin and Zosyn. Qualifiers: Site of cellulitis: extremity Laterality: right Qualified Code(s): L03.113 - Cellulitis of right upper limb (5) Acute kidney injury Current Visit: Yes Status: Resolved Likely secondary to sepsis. Unsure baseline. Resolved. Continue to trend. Monitor renal function and does just antibiotics. Avoid nephrotoxins as able. (6) Acute metabolic encephalopathy Current Visit: Yes Status: Acute Ongoing for the last month. Extensive workup at [facility] including MRI, EEG, and CT were negative for etiology. CVA versus anoxic brain injury versus other. EEG completed here was essentially normal. Palliative care consulted. Continue to monitor closely. (7) Bacteremia Current Visit: Yes Status: Resolved Blood cultures drawn 08/28/18 at [facility] were +2 out of 2 sets for pansensitive pseudomonas. Repeat blood cultures drawn 08/31/18 are no growth to date. Blood cultures drawn here 09/01/18 are negative 2 sets. Was discharged to [facility] on Zosyn 4.5 g IV every 8 hours. Currently on IV Zosyn. (8) CKD (chronic kidney disease) stage 3, GFR 30-59 ml/min Current Visit: Yes Status: Chronic (9) Diabetes Current Visit: Yes Status: Chronic Recommend strict glucose control per the primary team. 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 Status post emergent endovascular repair of ruptured AAA with aortic cuff and right groin cutdown for delivery of device 08/01/18 at [facility]. 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 No acute events noted overnight. Mental status remains unchanged. Non-purposeful eye opening noted during exam, but the patient does not follow commands or attempt to communicate.. Patient remains unresponsive to verbal, tactile, and painful stimuli. Review of systems unobtainable. PEr the notes, family meeting scheduled at 1100 today. Infect Dis PN-Objective Data - Labs CBC & Chem 7: 09/07/18 04:50 09/07/18 04:50 Labs: Laboratory Results - last 24 hr 09/06/18 09/06/18 09/06/18 07:23 12:07 16:00 WBC RBC Hgb Hct MCV MCH MCHC RDW Plt Count MPV Sodium Potassium Chloride Carbon Dioxide BUN Creatinine Est GFR ( Amer) Est GFR (Non-Af Amer) BUN/Creatinine Ratio Glucose POC Glucose 185 H 159 H Calculated Osmolality Calcium Vancomycin Trough 18 H 09/06/18 09/06/18 09/07/18 16:55 19:54 04:50 WBC 9.3 RBC 2.71 L Hgb 7.8 L Hct 25.3 L MCV 93.4 MCH 28.8 MCHC 30.8 L RDW 15.4 H Plt Count 185 MPV 8.7 L Sodium Potassium Chloride Carbon Dioxide BUN Creatinine Est GFR ( Amer) Est GFR (Non-Af Amer) BUN/Creatinine Ratio Glucose POC Glucose 167 H 168 H Calculated Osmolality Calcium Vancomycin Trough 09/07/18 04:50 WBC RBC Hgb Hct MCV MCH MCHC RDW Plt Count MPV Sodium 137 Potassium 4.6 Chloride 105 Carbon Dioxide 25 BUN 33 H Creatinine 1.03 Est GFR ( Amer) > 60 Est GFR (Non-Af Amer) > 60 BUN/Creatinine Ratio 32 H Glucose 166 H POC Glucose Calculated Osmolality 295 Calcium 8.1 L Vancomycin Trough Cultures: Cultures 09/01/18 01:40 Blood Culture - Final Peripheral Venipuncture No growth. Final report. 09/01/18 01:44 Blood Culture - Final Peripheral Venipuncture No growth. Final report. 09/01/18 01:45 Urine Culture - Final Urine,[place] Pseudomonas aeruginosa 09/02/18 21:15 Nasal Screen MRSA/MSSA - Final Nose 09/02/18 01:00 Wound Culture - Final Groin No growth. 09/02/18 15:47 Sputum Culture - Final Trachea 08/31/18 01:45 Legionella Antigen - Final Urine,[place] Streptococcus pneumoniae Antigen (M - Final 09/01/18 06:14 Sputum Culture - Final Sputum Serology 09/03/18 09/02/18 09/01/18 Range/Units 09:00 15:47 01:45 Urine Color Yellow (Yellow) Urine Clarity Cloudy A (Clear) Urine pH 6.0 (5.0-8.0) pH Units Ur Specific [place] 1.018 (1.010-1.025) Urine Protein 100 H (Neg-Trace) mg/dL Urine Glucose (UA) Normal (Normal) mg/dL Urine Ketones Negative (Negative) mg/dL Urine Blood Large H (Negative) Urine Nitrite Negative (Negative) Urine Bilirubin Negative (Negative) Urine Urobilinogen Normal (Normal) mg/dL Ur Leukocyte Esterase Moderate H (Negative) Urine Microscopic RBC TNTC H (0-3) per hpf Urine Microscopic WBC 15-30 H (0-3) per hpf Ur Squamous Epith Cells Many H (None-Few) per lpf Urine Bacteria None Seen (None-Few) per hpf Hyaline Casts None Seen (None-Few) per lpf Urine Yeast Test Not Performed Ur Culture Indicated? NO. A (NO) Nasal Screen MRSA (PCR) Negative (Negative) Chlamy pneumoniae PCR Not Detected (Not Detect) Adenovirus (PCR) Not Detected (Not Detect) B. pertussis DNA (PCR) Not Detected (Not Detect) B.parapertussis DNA PCR Not Detected (Not Detect) Coronavirus OC43 (PCR) Not Detected (Not Detect) Coronavirus HKU1 (PCR) Not Detected (Not Detect) Coronavirus 229E (PCR) Not Detected (Not Detect) Coronavirus NL63 (PCR) Not Detected (Not Detect) Human Metapneumovir PCR Not Detected (Not Detect) Influenza A (H1) PCR Not Detected (Not Detect) Influ A (H1N1/09) PCR Not Detected (Not Detect) Influenza A (H3) PCR Not Detected (Not Detect) Influenza A Untype (PCR) Not Detected (Not Detect) Influenza Type B (PCR) Not Detected (Not Detect) M.pneumoniae DNA (PCR) Not Detected (Not Detect) Parainfluenza 1 (PCR) Not Detected (Not Detect) Parainfluenza 2 (PCR) Not Detected (Not Detect) Parainfluenza 3 (PCR) Not Detected (Not Detect) Parainfluenza 4 (PCR) Not Detected (Not Detect) RSV (PCR) Not Detected (Not Detect) Entero/Rhino (PCR) Not Detected (Not Detect) Exam - Constitutional Vitals: Temp Pulse Resp BP Pulse Ox 99.4 F 83 18 178/76 98 09/07/18 07:49 09/07/18 07:49 09/07/18 07:49 09/07/18 07:49 09/07/18 07:49 General appearance: average body habitus, no acute distress, no cooperative - Head Head exam: Present: atraumatic, normal inspection, normocephalic - Eye Eye exam: Present: normal appearance, PERRL Pupils: Present: normal accommodation Additional comments: No spontaneous eye opening noted. Patient does resist passive eye opening. Corneal reflex appears intact. - ENT ENT exam: Present: mucous membranes dry - Neck Neck exam: Present: normal inspection Additional comments: Tracheostomy midline with O2 via trach mask. - Respiratory Respiratory exam: Present: rhonchi (Scattered throughout). Absent: rales, respiratory distress, wheezes - Cardiovascular Cardiovascular exam: Present: RRR, +S1, +S2 - GI/Abdominal GI/Abdominal exam: Present: normal bowel sounds, soft. Absent: distended, tenderness Additional comments: PEG tube noted with tube feeds infusing. Al catheter noted to be draining clear yellow urine. - Extremities Exam Extremities exam: Present: normal inspection. Absent: joint swelling, pedal edema, tenderness Additional comments: Right upper extremity erythema and edema and warmth have resolved. - Neurological Exam Neurological exam: Present: altered (No eye opening on command. Does not follow commands. Does not attempt to communicate. No purposeful movement of the extremities noted.) - Skin Skin exam: Present: dry, intact, normal color, warm Consult Discharge Plan - Plan [facility]: [facility] [Primary Care Provider] -
--- NOTE | 2018-09-07 13:43 | Internal Med Progress Note ---
<Napoleon Yeager - Last Filed: 09/07/18 15:22> Hospitalist Progress Note - Encounter Date of Encounter: 09/07/18 - Exam Vitals: Temp Pulse Resp BP Pulse Ox 98.6 F 75 18 153/67 96 09/07/18 11:41 09/07/18 11:41 09/07/18 11:41 09/07/18 11:41 09/07/18 11:41 - Assessment and Plan (1) Edema extremities Current Visit: Yes Status: Acute (2) Acute metabolic encephalopathy Current Visit: Yes Status: Acute (3) Sepsis Current Visit: Yes Status: Resolved (4) Pneumonia Current Visit: Yes Status: Acute (5) S/P AAA (abdominal aortic aneurysm) repair Current Visit: Yes Status: Chronic (6) Hypertension Current Visit: Yes Status: Chronic (7) DVT prophylaxis Current Visit: Yes Status: Acute (8) Diabetes Current Visit: Yes Status: Chronic (9) CKD (chronic kidney disease) stage 3, GFR 30-59 ml/min Current Visit: Yes Status: Chronic 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 Present on admission. - Time Spent with Patient Total time spent is greater than 50% in coordination of care (as documented) at patient's floor/unit and/or counseling patient: Internal Medicine: Result - Labs CBC & Chem 7: 09/07/18 04:50 09/07/18 04:50 Labs: Short CBC 09/07/18 Range/Units 04:50 WBC 9.3 (4.3-11.1) K/mcL Hgb 7.8 L (12.9-16.9) g/dL Hct 25.3 L (37.5-50.1) % Plt Count 185 (140-400) K/mcL BMP 09/07/18 04:50 Sodium 137 Potassium 4.6 Chloride 105 Carbon Dioxide 25 BUN 33 H Creatinine 1.03 Glucose 166 H Calcium 8.1 L Consult Discharge Plan - Plan [facility]errals: [facility] [Primary Care Provider] - - Attending Attestation I examined this patient and my medical decision-making was reviewed with the Resident Physician on 09/07/18. I agree with the documented findings, disposition and treatment plan as described except to the extent set forth below. Mr Busby is currently admitted for acute encephalopathy as well as Pseudomonas sepsis with UTI. He remains moderate to high risk due to potential for worsening clinical status. Mr Busby is unchanged. He does not respond to voice. No fever noted. No other issues. Appreciate palliative care input and assistance. Exam Alert comfortable Mucus membranes dry Trach in place Heart reg and not tachy Coarse rhonchi bilaterally Abd soft. Edema present - overall seems better. I/P 1. Encephalopathy - persists. Work up in past has been negative. 2. Pseudomonas pneumonia and UTI. 3. Sepsis resolved 4. Trach/Peg Pt is to go home with family and HHC. He is in need of hospital bed due to need for positioning, head raise for tube feeds and frequent turning. He is in need of oxygen and set for trach as well as tube feeds as he is unresponsive and does not take anything PO. Due to trach and his inability to control secretions, he is in need of suction machine for family to suction airway. Further diagnoses and plan as above Anticipate d/c in next 1-2 days. <Kya Hinojosa R - Last Filed: 09/07/18 17:33> Hospitalist Progress Note - Encounter Date of Encounter: 09/07/18 Time of Encounter: 13:43 - Subjective Interval History: Patient with no acute changes overnight. Continues to be unresponsive. Patient's family has decided to make him DNRCCA and wishes to take him home with home health referral. Social work is arty initiated the process and prescriptions have been written for him to go home in a hospital bed as he is unable to move and will need positioned in bed with turning to prevent development of pressure sores. The patient will also be discharged home with oxygen for his trach to help maintain sats and prevent hypoxia as he is not breathing on his own. - Exam Vitals: Temp Pulse Resp BP Pulse Ox 98.6 F 75 18 153/67 96 09/07/18 11:41 09/07/18 11:41 09/07/18 11:41 09/07/18 11:41 09/07/18 11:41 Exam: Constitutional - Comfortable. Does not open eyes to name. H - normocephalic EENT - Mucus membranes dry Neck - No plapable LAD Cardio - RRR. Occ PVC on monitor. Not tachycardic Respiratory - Scattered rhonchi bilaterally. No wheeze or rales. Abdomen - Soft. Does not appear tender. No mass felt. Extremities - Nonpitting edema noted throughout. Stable edema. Skin - No visible rash. Warm and dry. Neuro - Not alert at this time. - Assessment and Plan (1) Edema extremities Current Visit: Yes Status: Acute Assessment and Plan: Albumin helped decrease peripheral edema Continue to monitor (2) Acute metabolic encephalopathy Current Visit: Yes Status: Acute Assessment and Plan: Encephalopathy unchanged at this time. Trying to stop any meds that may be contributing. Work up has been negative at [facility] and EEG normal here. (3) Pneumonia Current Visit: Yes Status: Acute Assessment and Plan: Pt with prior hx of Pseudomonas pneumonia. Currently on IV Zosyn for coverage. Further abx plan per ID service. (4) Sepsis Current Visit: Yes Status: Resolved Assessment and Plan: Pt admitted with sepsis presumed due to Pseudomonas (due to recent history). Vanc and Zosyn, day 8 Resolved at this time. (5) Cellulitis Current Visit: Yes Status: Resolved Assessment and Plan: Resolved (6) S/P AAA (abdominal aortic aneurysm) repair Current Visit: Yes Status: Chronic Assessment and Plan: s/p recent repair of leaking AAA graft No acute issues. (7) CKD (chronic kidney disease) stage 3, GFR 30-59 ml/min Current Visit: Yes Status: Chronic Assessment and Plan: Creatinine has improved and is now wnl at 98. Continue to monitor. (8) Diabetes Current Visit: Yes Status: Chronic Assessment and Plan: Fair control at this time. Continue same plan of care. (9) Hypertension Current Visit: Yes Status: Chronic Assessment and Plan: BP uncontrolled. Med adjustments made yesterday and will be adjusted more if does not continue to improve. 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 DVT Prophylaxis: SQ Heparin - Time Spent with Patient Total time spent is greater than 50% in coordination of care (as documented) at patient's floor/unit and/or counseling patient: Internal Medicine: Result - Labs CBC & Chem 7: 09/07/18 04:50 09/07/18 04:50 Labs: Short CBC 09/07/18 Range/Units 04:50 WBC 9.3 (4.3-11.1) K/mcL Hgb 7.8 L (12.9-16.9) g/dL Hct 25.3 L (37.5-50.1) % Plt Count 185 (140-400) K/mcL BMP 09/07/18 04:50 Sodium 137 Potassium 4.6 Chloride 105 Carbon Dioxide 25 BUN 33 H Creatinine 1.03 Glucose 166 H Calcium 8.1 L <Napoleon Yeager A - Last Filed: 09/07/18 15:22> (3) Sepsis Qualifiers: Sepsis type: Pseudomonas Qualified Code(s): A41.52 - Sepsis due to Pseudomonas (4) Pneumonia Qualifiers: Pneumonia type: due to Pseudomonas Laterality: left Lung location: lower lobe of lung Qualified Code(s): J15.1 - Pneumonia due to Pseudomonas (6) Hypertension Qualifiers: Hypertension type: essential hypertension Qualified Code(s): I10 - Essential (primary) hypertension (8) Diabetes Qualifiers: Diabetes mellitus type: type 2 Diabetes mellitus long term acute care registered nurse insulin use: with long term acute care registered nurse use Diabetes mellitus complication status: with unspecified complications Qualified Code(s): E11.8 - Type 2 diabetes mellitus with unspecified complications; Z79.4 - senior living (current) use of insulin (12) UTI (urinary tract infection) Qualifiers: Urinary tract infection type: catheter-associated UTI Indwelling urinary catheter type: indwelling urethral catheter Encounter type: subsequent encounter Qualified Code(s): T83.511D - Infection and inflammatory reaction due to indwelling urethral catheter, subsequent encounter; N39.0 - Urinary tract infection, site not specified <Kya Hinojosa - Last Filed: 09/07/18 17:33> (3) Pneumonia Qualifiers: Pneumonia type: due to Pseudomonas Laterality: left Lung location: lower lobe of lung Qualified Code(s): J15.1 - Pneumonia due to Pseudomonas (4) Sepsis Qualifiers: Sepsis type: Pseudomonas Qualified Code(s): A41.52 - Sepsis due to Pseudomonas (5) Cellulitis Qualifiers: Site of cellulitis: extremity Laterality: right Qualified Code(s): L03.113 - Cellulitis of right upper limb (8) Diabetes Qualifiers: Diabetes mellitus type: type 2 Diabetes mellitus mcc insulin use: with long term acute care registered nurse use Diabetes mellitus complication status: with unspecified complications Qualified Code(s): E11.8 - Type 2 diabetes mellitus with unspecified complications; Z79.4 - senior living (current) use of insulin (9) Hypertension Qualifiers: Hypertension type: essential hypertension Qualified Code(s): I10 - Essential (primary) hypertension
--- NOTE | 2018-09-07 13:51 | Physician Discharge Referral ---
Addendum entered and electronically signed by Kya Hinojosa 09/07/18 14:35: Add nurse Original Note: <Kya Hinojosa - Last Filed: 09/07/18 13:49> Home Health/Hosp Referral Info Transfer to: Home Health Attending Provider: Napoleon Yeager Provider in Charge Post Discharge: PCP - Diagnosis (1) Edema extremities Priority: Secondary Status: Acute (2) Acute metabolic encephalopathy Priority: Secondary Status: Acute (3) Pneumonia Priority: Secondary Status: Acute (4) Sepsis Priority: Primary Status: Resolved (5) Cellulitis Priority: Secondary Status: Resolved (6) S/P AAA (abdominal aortic aneurysm) repair Priority: Secondary Status: Chronic (7) CKD (chronic kidney disease) stage 3, GFR 30-59 ml/min Priority: Secondary Status: Chronic (8) Diabetes Priority: Secondary Status: Chronic (9) Hypertension Priority: Secondary Status: Chronic - Respiratory Orders Oxygen / L per min Smoking Cessation: Smoking cessation has been advised. For more information, call the [employer] Quit Line at 0-541-ZHXU-NOW. - Diet/Nutrition Diet/Nutrition: List: Tube feeds as patient is not awake to eat - Activity Activity Orders: Bedrest Activity: List: Pt not awake/alert to move - Services Needed Following services are medically necessary services: Home Health Aide - Transfer Medications Home Medications: Abatacept [Orencia] 125 mg SQ QWEEK 09/01/18 [History] Alendronate Sodium 70 mg PO QWEEK 09/01/18 [History] Aspirin 81 mg GTUBE DAILY 09/01/18 [History] Atorvastatin [Lipitor] 80 mg PO HS 09/01/18 [History] Carvedilol [Coreg] 25 mg PO BID 09/01/18 [History] Cholecalciferol (Vitamin D3) [Vitamin D] 2,000 unit PO DAILY 09/01/18 [History] Docusate [Colace] 100 mg GTUBE BID 09/01/18 [History] Esomeprazole Magnesium [Nexium] 40 mg GTUBE DAILY 09/01/18 [History] Fluticasone Furoate [Arnuity Ellipta] 1 spr NS BID 09/01/18 [History] Leflunomide [Arava] 10 mg PO DAILY 09/01/18 [History] Loratadine [Allergy Relief] 10 mg PO DAILY 09/01/18 [History] Modafinil [Provigil] 100 mg GTUBE DAILY 09/01/18 [History] NIFEdipine [Nifedipine ER] 60 mg PO DAILY 09/01/18 [History] Nystatin [Nystatin Suspension] 500,000 units PO QID 09/01/18 [History] [place]-3 Acid Ethyl Esters [Triklo] 1 gm PO BID 09/01/18 [History] Omeprazole [PriLOSEC] 40 mg PO DAILY 09/01/18 [History] Piperacillin Sodium/Tazobactam [Piperacil-Tazobact 4.5 gm Vial] 4.5 gm IV Q8HR 09/01/18 [History] amLODIPine [Norvasc] 10 mg PO DAILY 09/01/18 [History] cloNIDine HCl [CloNIDine HCl] 0.1 mg PO BID 09/01/18 [History] glipiZIDE [Glucotrol] 5 mg PO BID 09/01/18 [History] Acetaminophen [Tylenol] 650 mg PO Q6H PRN 09/02/18 [History] Lisinopril/Hydrochlorothiazide [Zestoretic 20-25 mg Tablet] 1 tab PO DAILY 09/02/18 [History] Allergies/Adverse Reactions: Allergy/AdvReac Type Severity Reaction Status Date / Time sulfamethoxazole Allergy See Verified 08/01/18 08:07 [From ] Comments trimethoprim [From ] Allergy See Verified 08/01/18 08:07 Comments morphine AdvReac See Verified 09/01/18 00:00 Comments Certification: Further, I certify that my clinical findings support that this patient is homebound (i.e. absences from home require considerable and taxing effort and are for medical reasons or yarsanism services or infrequently or short duration when for other reasons) because: Homebound Reason: Patient requires assistance of a person or device to safely leave home, Leaving home requires considerable and taxing effort due to condition, Altered mental status requiring supervision when leaving home Attestation: My signature below is to certify that this patient is under my care and that I, or nurse practitioner, or a physician's nurses medical assistants phlebotomists working with me, has a [id number] encounter with this patient. <Napoleon Yeager - Last Filed: 09/07/18 15:21> - Diagnosis (1) Edema extremities Status: Acute (2) Acute metabolic encephalopathy Status: Acute (3) Sepsis Status: Resolved (4) Pneumonia Status: Acute (5) S/P AAA (abdominal aortic aneurysm) repair Status: Chronic (6) Hypertension Status: Chronic (7) DVT prophylaxis Status: Acute (8) Diabetes Status: Chronic (9) CKD (chronic kidney disease) stage 3, GFR 30-59 ml/min Status: Chronic (10) Tracheostomy dependence Status: Chronic (11) Chronic hypoxemic respiratory failure Status: Chronic - Respiratory Orders Smoking Cessation: Smoking cessation has been advised. For more information, call the [place] [employer] Quit Line at 1-819-BPMCNOW. - Services Needed Following services are medically necessary services: Nursing Certification: Further, I certify that my clinical findings support that this patient is homebound (i.e. absences from home require considerable and taxing effort and are for medical reasons or yarsanism services or infrequently or short duration when for other reasons) because: Attestation: My signature below is to certify that this patient is under my care and that I, or nurse practitioner, or a physician's nurses medical assistants phlebotomists working with me, has a [id number] encounter with this patient.
[2018-09-08] MEDS: Insulin LISPRO 300 UNITS/3 ML VIAL SQ SCH ×6 (00:38→20:17)
[2018-09-08] MEDS: Piperacillin/Tazobactam 3.375 GM in 0.9 % Sodium Chloride Mini Bag 100 ML IVPB SCH ×2 (00:55→08:41)
[2018-09-08] MEDS: *HR* Heparin 5,000 UNIT/ML VIAL SQ SCH ×2 (04:40→16:46)
[2018-09-08 05:02] LABS: Hematocrit 26.2 % (37.5-50.1); Hemoglobin 8.2 g/dL (12.9-16.9); Mean Corpuscular HGB Conc 31.3 g/dL (31.6-35.5); Mean Corpuscular Volume 92.6 fL (83.0-100.0); Mean Platelet Volume 8.9 fL (9.4-12.4); Platelet Count 196 K/mcL (140-400); Red Blood Count 2.83 M/mcL (4.19-5.50); Red Cell Distribution Width 15.6 % (11.5-14.5)
[2018-09-08 05:16] LABS: BUN/Creatinine Ratio 27 (6-26); Blood Urea Nitrogen 31 mg/dL (8-23); Calcium 8.5 mg/dL (8.6-10.3); Carbon Dioxide 26 mEq/L (23-29); Chloride 102 mEq/L (98-107); Glucose 163 mg/dL (70-105); Osmolality,Calculated 288 (280-300); Potassium 4.6 mEq/L (3.5-5.1); Sodium 134 mEq/L (136-145); eGFR For Non-African Americans > 60 (> 60)
[2018-09-08] MEDS: MOMETASONE FUROATE 100 mcg Inhaler IH SCH ×2 (07:55→22:58)
[2018-09-08] MEDS: Loratadine 10 MG TABLET PO SCH (08:40)
[2018-09-08] MEDS: Aspirin 81 MG TAB.CHEW PO SCH (08:40)
[2018-09-08] MEDS: cloNIDine HCl 0.1 MG TABLET PO SCH (08:40)
[2018-09-08] MEDS: Docusate Oral Soln 100 MG/10 ML UDC GTUBE SCH ×2 (08:41→20:17)
[2018-09-08] MEDS: amLODIPine 5 MG TABLET PO SCH (08:41)
[2018-09-08] MEDS: Glycopyrrolate 1 MG TABLET GTUBE SCH ×3 (08:57→20:17)
--- NOTE | 2018-09-08 11:30 | Infectious Disease Progress No ---
Date of Encounter: 09/08/18 Time of Encounter: 10:55 - Assessment and Plan (1) Sepsis Current Visit: Yes Status: Resolved The patient had 2 sepsis criteria on admission. Likely secondary to pneumonia versus right upper extremity cellulitis vs UTI. Improved. White blood cell count remains normal. Tachycardia and tachypnea Resolved. Blood cultures drawn 09/01/18 are negative 2 sets. Recommendations: Continue vancomycin IV. Pharmacy to dose. Goal trough approximately 15. ( day 8) Continue Zosyn 3.375 g IV every 8 hours. (day 8) Duration of treatment depends on the clinical picture. Can likely de-escalate to oral Levaquin to complete a 14 day course (through 09/14/18) and doxycycline to complete a 10 day course (through 09/10/18). Monitor renal function and for drug toxicity and dose adjust antibiotics. No further recommendations from the ID team. We will sign off. Please reconsult if needed. Qualifiers: Sepsis type: Pseudomonas Qualified Code(s): A41.52 - Sepsis due to Pseudomonas (2) UTI (urinary tract infection) Current Visit: Yes Status: Acute True infection versus colonization. Urine culture at [facility] was also positive for pansensitive Pseudomonas. The patient had been on IV Zosyn for several days prior to admission but continues to have Pseudomonas in the urine. Currently on IV Zosyn. Qualifiers: Urinary tract infection type: catheter-associated UTI Indwelling urinary catheter type: indwelling urethral catheter Encounter type: initial encounter Qualified Code(s): T83.511A - Infection and inflammatory reaction due to indwelling urethral catheter, initial encounter; N39.0 - Urinary tract infection, site not specified (3) Pneumonia Current Visit: Yes Status: Acute Causative organism: Unclear. Previous BAL and sputum cultures at [facility] were positive for pseudomonas and MSSA. Chest x-ray shows a left lower lobe consolidation consistent with pneumonia. Urinary antigen tests were negative. Sputum culture was contaminated x2. Respiratory infectious panel negative. MRSA screen negative. Currently on vancomycin and Zosyn. Qualifiers: Pneumonia type: due to Pseudomonas Laterality: left Lung location: lower lobe of lung Qualified Code(s): J15.1 - Pneumonia due to Pseudomonas (4) Cellulitis Current Visit: Yes Status: Resolved Location: Right upper extremity. The patient did have an IV in his arm and was receiving IV antibiotics there prior to admission. Venous Doppler study negative for SVT or DVT. Improved. Currently on vancomycin and Zosyn. Qualifiers: Site of cellulitis: extremity Laterality: right Qualified Code(s): L03.113 - Cellulitis of right upper limb (5) Acute kidney injury Current Visit: Yes Status: Resolved Likely secondary to sepsis. Unsure baseline. Resolved. Continue to trend. Monitor renal function and does just antibiotics. Avoid nephrotoxins as able. (6) Acute metabolic encephalopathy Current Visit: Yes Status: Acute Ongoing for the last month. Extensive workup at [facility] including MRI, EEG, and CT were negative for etiology. CVA versus anoxic brain injury versus other. EEG completed here was essentially normal. Palliative care consulted. Continue to monitor closely. (7) Bacteremia Current Visit: Yes Status: Resolved Blood cultures drawn 08/28/18 at [facility] were +2 out of 2 sets for pansensitive pseudomonas. Repeat blood cultures drawn 08/31/18 are no growth to date. Blood cultures drawn here 09/01/18 are negative 2 sets. Was discharged to [facility] on Zosyn 4.5 g IV every 8 hours. Currently on IV Zosyn. (8) CKD (chronic kidney disease) stage 3, GFR 30-59 ml/min Current Visit: Yes Status: Chronic (9) Diabetes Current Visit: Yes Status: Chronic Recommend strict glucose control per the primary team. Qualifiers: Diabetes mellitus type: type 2 Diabetes mellitus nursing home insulin use: with nursing home use Diabetes mellitus complication status: with unspecified complications Qualified Code(s): E11.8 - Type 2 diabetes mellitus with unspecified complications; Z79.4 - USP (current) use of insulin (10) Hypertension Current Visit: Yes Status: Chronic Qualifiers: Hypertension type: essential hypertension Qualified Code(s): I10 - Es sential (primary) hypertension (11) S/P AAA (abdominal aortic aneurysm) repair Current Visit: Yes Status: Chronic Status post EVAR in 2014. Status post emergent endovascular repair of ruptured AAA with aortic cuff and right groin cutdown for delivery of device 08/01/18 at [facility]. 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 No acute events noted overnight. Mental status remains unchanged. Non-purposeful eye opening noted during exam, but the patient does not follow commands or attempt to communicate.. Patient remains unresponsive to verbal, tactile, and painful stimuli. Review of systems unobtainable. Infect Dis PN-Objective Data - Labs CBC & Chem 7: 09/08/18 04:30 09/08/18 04:30 Labs: Laboratory Results - last 24 hr 09/06/18 09/07/18 09/07/18 23:43 04:05 07:53 WBC RBC Hgb Hct MCV MCH MCHC RDW Plt Count MPV Sodium Potassium Chloride Carbon Dioxide BUN Creatinine Est GFR ( Amer) Est GFR (Non-Af Amer) BUN/Creatinine Ratio Glucose POC Glucose 148 H 161 H 196 H Calculated Osmolality Calcium 09/07/18 09/07/18 09/08/18 11:46 15:52 04:30 WBC 9.6 RBC 2.83 L Hgb 8.2 L Hct 26.2 L MCV 92.6 MCH 29.0 MCHC 31.3 L RDW 15.6 H Plt Count 196 MPV 8.9 L Sodium Potassium Chloride Carbon Dioxide BUN Creatinine Est GFR ( Amer) Est GFR (Non-Af Amer) BUN/Creatinine Ratio Glucose POC Glucose 168 H 170 H Calculated Osmolality Calcium 09/08/18 04:30 WBC RBC Hgb Hct MCV MCH MCHC RDW Plt Count MPV Sodium 134 L Potassium 4.6 Chloride 102 Carbon Dioxide 26 BUN 31 H Creatinine 1.14 Est GFR ( Amer) > 60 Est GFR (Non-Af Amer) > 60 BUN/Creatinine Ratio 27 H Glucose 163 H POC Glucose Calculated Osmolality 288 Calcium 8.5 L Cultures: Cultures 09/01/18 01:40 Blood Culture - Final Peripheral Venipuncture No growth. Final report. 09/01/18 01:44 Blood Culture - Final Peripheral Venipuncture No growth. Final report. 09/01/18 01:45 Urine Culture - Final Urine,[place] Pseudomonas aeruginosa 09/02/18 21:15 Nasal Screen MRSA/MSSA - Final Nose 09/02/18 01:00 Wound Culture - Final Groin No growth. 09/02/18 15:47 Sputum Culture - Final Trachea 08/31/18 01:45 Legionella Antigen - Final Urine,[place] Streptococcus pneumoniae Antigen (M - Final 09/01/18 06:14 Sputum Culture - Final Sputum Serology 09/03/18 09/02/18 09/01/18 Range/Units 09:00 15:47 01:45 Urine Color Yellow (Yellow) Urine Clarity Cloudy A (Clear) Urine pH 6.0 (5.0-8.0) pH Units Ur Specific [place] 1.018 (1.010-1.025) Urine Protein 100 H (Neg-Trace) mg/dL Urine Glucose (UA) Normal (Normal) mg/dL Urine Ketones Negative (Negative) mg/dL Urine Blood Large H (Negative) Urine Nitrite Negative (Negative) Urine Bilirubin Negative (Negative) Urine Urobilinogen Normal (Normal) mg/dL Ur Leukocyte Esterase Moderate H (Negative) Urine Microscopic RBC TNTC H (0-3) per hpf Urine Microscopic WBC 15-30 H (0-3) per hpf Ur Squamous Epith Cells Many H (None-Few) per lpf Urine Bacteria None Seen (None-Few) per hpf Hyaline Casts None Seen (None-Few) per lpf Urine Yeast Test Not Performed Ur Culture Indicated? NO. A (NO) Nasal Screen MRSA (PCR) Negative (Negative) Chlamy pneumoniae PCR Not Detected (Not Detect) Adenovirus (PCR) Not Detected (Not Detect) B. pertussis DNA (PCR) Not Detected (Not Detect) B.parapertussis DNA PCR Not Detected (Not Detect) Coronavirus OC43 (PCR) Not Detected (Not Detect) Coronavirus HKU1 (PCR) Not Detected (Not Detect) Coronavirus 229E (PCR) Not Detected (Not Detect) Coronavirus NL63 (PCR) Not Detected (Not Detect) Human Metapneumovir PCR Not Detected (Not Detect) Influenza A (H1) PCR Not Detected (Not Detect) Influ A (H1N1/09) PCR Not Detected (Not Detect) Influenza A (H3) PCR Not Detected (Not Detect) Influenza A Untype (PCR) Not Detected (Not Detect) Influenza Type B (PCR) Not Detected (Not Detect) M.pneumoniae DNA (PCR) Not Detected (Not Detect) Parainfluenza 1 (PCR) Not Detected (Not Detect) Parainfluenza 2 (PCR) Not Detected (Not Detect) Parainfluenza 3 (PCR) Not Detected (Not Detect) Parainfluenza 4 (PCR) Not Detected (Not Detect) RSV (PCR) Not Detected (Not Detect) Entero/Rhino (PCR) Not Detected (Not Detect) Exam - Constitutional Vitals: Temp Pulse Resp BP Pulse Ox 99.7 F H 78 17 153/68 98 09/08/18 11:09 09/08/18 11:09 09/08/18 11:09 09/08/18 11:09 09/08/18 11:09 General appearance: average body habitus, no acute distress, no cooperative - Head Head exam: Present: atraumatic, normal inspection, normocephalic - Eye Eye exam: Present: normal appearance, PERRL Pupils: Present: normal accommodation Additional comments: Does not open eyes on command. Corneal reflex appears intact. - ENT ENT exam: Present: mucous membranes moist - Neck Neck exam: Present: normal inspection Additional comments: Tracheostomy midline with O2 via trach mask. Large amount of light yellow secretions noted in the inner cannula and trach mask. - Respiratory Respiratory exam: Present: CTAB. Absent: rales, respiratory distress, rhonchi, wheezes - Cardiovascular Cardiovascular exam: Present: RRR, +S1, +S2 - GI/Abdominal GI/Abdominal exam: Present: normal bowel sounds, soft. Absent: distended, tenderness Additional comments: PEG tube noted with tube feeds infusing. - Extremities Exam Extremities exam: Present: normal inspection. Absent: joint swelling, pedal edema, tenderness - Neurological Exam Neurological exam: Present: altered (No eye opening or purposeful movement of the extremities noted on exam. Does not follow commands. Does not attempt to communicate.) - Skin Skin exam: Present: dry, intact, normal color, warm Consult Discharge Plan - Plan [facility]errals: [facility] [Primary Care Provider] -
[2018-09-08] MEDS: Doxycycline 100 MG CAPSULE PO SCH ×2 (11:37→20:17)
[2018-09-08] MEDS: levoFLOXacin 750 MG TABLET PO SCH (11:38)
[2018-09-08] MEDS ORDERED: Aminoglycoside Consult 1 EACH MC ONE (12:43)
--- NOTE | 2018-09-08 14:00 | Internal Med Progress Note ---
<Kya Hinojosa R - Last Filed: 09/08/18 14:04> Hospitalist Progress Note - Encounter Date of Encounter: 09/08/18 Time of Encounter: 08:30 - Subjective Interval History: Pt remains stable. Working on discharge home with HH. Will switch vanc and zosyn to doxy and levaquin per ID recs. - Exam Vitals: Temp Pulse Resp BP Pulse Ox 99.7 F H 78 17 153/68 98 09/08/18 11:09 09/08/18 11:09 09/08/18 11:09 09/08/18 11:09 09/08/18 11:09 Exam: Constitutional - Comfortable. Does not open eyes to name. H - normocephalic EENT - Mucus membranes dry Neck - No palpable LAD Cardio - RRR. Occ PVC on monitor. Not tachycardic Respiratory - Scattered rhonchi bilaterally. No wheeze or rales. Abdomen - Soft. Does not appear tender. No mass felt. Extremities - Nonpitting edema noted throughout. Stable edema. Skin - No visible rash. Warm and dry. Neuro - Not alert at this time. - Assessment and Plan (1) Edema extremities Current Visit: Yes Status: Acute Assessment and Plan: Albumin helped decrease peripheral edema Continue to monitor (2) Acute metabolic encephalopathy Current Visit: Yes Status: Acute Assessment and Plan: Encephalopathy unchanged at this time. Trying to stop any meds that may be contributing. Work up has been negative at [facility] and EEG normal here. (3) Pneumonia Current Visit: Yes Status: Acute Assessment and Plan: Pt with prior hx of Pseudomonas pneumonia. Zosyn/vanc will be de-escalated to doxy/levaquin per ID recs Further abx plan per ID service. (4) Sepsis Current Visit: Yes Status: Resolved Assessment and Plan: Pt admitted with sepsis presumed due to Pseudomonas (due to recent history). Vanc and Zosyn for total of 8 days Switch to levaquin (through 09/14) and doxy (through 09/10) Resolved at this time. (5) Cellulitis Current Visit: Yes Status: Resolved Assessment and Plan: Resolved (6) S/P AAA (abdominal aortic aneurysm) repair Current Visit: Yes Status: Chronic Assessment and Plan: s/p recent repair of leaking AAA graft No acute issues. (7) CKD (chronic kidney disease) stage 3, GFR 30-59 ml/min Current Visit: Yes Status: Chronic Assessment and Plan: Creatinine has improved and is now wnl at 98. Continue to monitor. (8) Diabetes Current Visit: Yes Status: Chronic Assessment and Plan: Fair control at this time. Continue same plan of care. (9) Hypertension Current Visit: Yes Status: Chronic Assessment and Plan: BP uncontrolled. Med adjustments made yesterday and will be adjusted more if does not continue to improve. Stopping Clonidine - has TAX EVALUATOR acting properties DVT Prophylaxis: SQ Heparin - Time Spent with Patient Total time spent is greater than 50% in coordination of care (as documented) at patient's floor/unit and/or counseling patient: Internal Medicine: Result - Labs CBC & Chem 7: 09/08/18 04:30 09/08/18 04:30 Labs: Short CBC 09/08/18 Range/Units 04:30 WBC 9.6 (4.3-11.1) K/mcL Hgb 8.2 L (12.9-16.9) g/dL Hct 26.2 L (37.5-50.1) % Plt Count 196 (140-400) K/mcL BMP 09/08/18 04:30 Sodium 134 L Potassium 4.6 Chloride 102 Carbon Dioxide 26 BUN 31 H Creatinine 1.14 Glucose 163 H Calcium 8.5 L Consult Discharge Plan - Plan Referrals: [facility] [Primary Care Provider] - <Shannon So - Last Filed: 09/08/18 14:26> Hospitalist Progress Note - Encounter Date of Encounter: 09/08/18 - Exam Vitals: Temp Pulse Resp BP Pulse Ox 99.7 F H 78 17 153/68 98 09/08/18 11:09 09/08/18 11:09 09/08/18 11:09 09/08/18 11:09 09/08/18 11:09 - Assessment and Plan (1) Pneumonia Current Visit: Yes Status: Acute (2) S/P AAA (abdominal aortic aneurysm) repair Current Visit: Yes Status: Chronic (3) Hypertension Current Visit: Yes Status: Chronic (4) DVT prophylaxis Current Visit: Yes Status: Acute (5) Acute metabolic encephalopathy Current Visit: Yes Status: Acute (6) Diabetes Current Visit: Yes Status: Chronic (7) CKD (chronic kidney disease) stage 3, GFR 30-59 ml/min Current Visit: Yes Status: Chronic (8) Sepsis Current Visit: Yes Status: Resolved (9) Edema extremities Current Visit: Yes Status: Acute 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 (11) Chronic hypoxemic respiratory failure Current Visit: Yes Status: Chronic (12) UTI (urinary tract infection) Current Visit: Yes Status: Acute - Time Spent with Patient Total time spent is greater than 50% in coordination of care (as documented) at patient's floor/unit and/or counseling patient: Internal Medicine: Result - Labs CBC & Chem 7: 09/08/18 04:30 09/08/18 04:30 Labs: Short CBC 09/08/18 Range/Units 04:30 WBC 9.6 (4.3-11.1) K/mcL Hgb 8.2 L (12.9-16.9) g/dL Hct 26.2 L (37.5-50.1) % Plt Count 196 (140-400) K/mcL BMP 09/08/18 04:30 Sodium 134 L Potassium 4.6 Chloride 102 Carbon Dioxide 26 BUN 31 H Creatinine 1.14 Glucose 163 H Calcium 8.5 L - Attending Attestation I examined this patient and my medical decision-making was reviewed with the Resident Physician Dr Hinojosa. I agree with the documented findings, disposition and treatment plan as described except to the extent set forth below. Mr Busby is currently admitted for acute encephalopathy as well as Pseudomonas sepsis with UTI. Mr Busby is unchanged. He does not respond to voice or painful stimuli. no family present. No hpi or ros can be obtained due to mental status No fevers, VS remain stable gen-non responsive ent- dry mucus membranes cv- reg rate and rhythm, normal s1,s2, no murmurs appreciated, no le edema, non pitting edema bl hands/arms lungs- ctabl, no wheezing, rhonchi or crackles, normal resp effort , trach without secretions abd- soft, no apparent tenderness, no guard or grimace to palpation, non distended neuro- non responsive to voice or painful stimuli 1. Encephalopathy - persists. Work up in past has been negative. Palliaitve care has assisted family, now DNR [facility] and will go home with C 2. Pseudomonas pneumonia and UTI- ID following, will dc on levaquin and doxy, currently vanc + zosyn 3. Sepsis resolved 4. Trach/Peg 5. HTN- variable bps, monitor off clonidine today, cont norvasc, coreg, lisinopril/hctz, uptitrate as needed, will require outpt fu Pt is to go home with family and HHC. He is in need of hospital bed due to need for positioning, head raise for tube feeds and frequent turning. He is in need of oxygen and set for trach as well as tube feeds as he is unresponsive and does not take anything PO. Due to trach and his inability to control secretions, he is in need of suction machine for family to suction airway. SW working on all these things and will notify us when in place Further diagnoses and plan as noted by resident <Kya Hinojosa R - Last Filed: 09/08/18 14:04> (3) Pneumonia Qualifiers: Pneumonia type: due to Pseudomonas Laterality: left Lung location: lower lobe of lung Qualified Code(s): J15.1 - Pneumonia due to Pseudomonas (4) Sepsis Qualifiers: Sepsis type: Pseudomonas Qualified Code(s): A41.52 - Sepsis due to Pseudomonas (5) Cellulitis Qualifiers: Site of cellulitis: extremity Laterality: right Qualified Code(s): L03.113 - Cellulitis of right upper limb (8) Diabetes Qualifiers: Diabetes mellitus type: type 2 Diabetes mellitus [facility] insulin use: with [facility] use Diabetes mellitus complication status: with unspecified complications Qualified Code(s): E11.8 - Type 2 diabetes mellitus with unspecified complications; Z79.4 - long term care administrator (current) use of insulin (9) Hypertension Qualifiers: Hypertension type: essential hypertension Qualified Code(s): I10 - Essential (primary) hypertension <Shannon So M - Last Filed: 09/08/18 14:26> (1) Pneumonia Qualifiers: Pneumonia type: due to Pseudomonas Laterality: left Lung location: lower lobe of lung Qualified Code(s): J15.1 - Pneumonia due to Pseudomonas (3) Hypertension Qualifiers: Hypertension type: essential hypertension Qualified Code(s): I10 - Essential (primary) hypertension (6) Diabetes Qualifiers: Diabetes mellitus type: type 2 Diabetes mellitus chcf insulin use: with oil heaterman use Diabetes mellitus complication status: with unspecified complications Qualified Code(s): E11.8 - Type 2 diabetes mellitus with unspecified complications; Z79.4 - prison (current) use of insulin (8) Sepsis Qualifiers: Sepsis type: Pseudomonas Qualified Code(s): A41.52 - Sepsis due to Pseudomonas (12) UTI (urinary tract infection) Qualifiers: Urinary tract infection type: catheter-associated UTI Indwelling urinary catheter type: indwelling urethral catheter Encounter type: subsequent encounter Qualified Code(s): T83.511D - Infection and inflammatory reaction due to indwelling urethral catheter, subsequent encounter; N39.0 - Urinary tract infection, site not specified
[2018-09-09] MEDS: Insulin LISPRO 300 UNITS/3 ML VIAL SQ SCH ×6 (00:14→21:38)
[2018-09-09] MEDS: *HR* Heparin 5,000 UNIT/ML VIAL SQ SCH ×2 (04:55→18:01)
[2018-09-09 05:19] LABS: Hematocrit 26.1 % (37.5-50.1); Hemoglobin 8.4 g/dL (12.9-16.9); Mean Corpuscular HGB Conc 32.2 g/dL (31.6-35.5); Mean Corpuscular Hemoglobin 29.5 pg (28.0-33.3); Mean Corpuscular Volume 91.6 fL (83.0-100.0); Mean Platelet Volume 8.9 fL (9.4-12.4); Platelet Count 192 K/mcL (140-400); Red Blood Count 2.85 M/mcL (4.19-5.50); Red Cell Distribution Width 15.6 % (11.5-14.5)
[2018-09-09 05:33] LABS: BUN/Creatinine Ratio 31 (6-26); Blood Urea Nitrogen 33 mg/dL (8-23); Calcium 8.6 mg/dL (8.6-10.3); Carbon Dioxide 25 mEq/L (23-29); Chloride 103 mEq/L (98-107); Glucose 147 mg/dL (70-105); Osmolality,Calculated 288 (280-300); Potassium 4.4 mEq/L (3.5-5.1); Sodium 134 mEq/L (136-145); eGFR For Non-African Americans > 60 (> 60)
[2018-09-09] MEDS: MOMETASONE FUROATE 100 mcg Inhaler IH SCH ×2 (07:21→20:38)
[2018-09-09] MEDS: levoFLOXacin 750 MG TABLET PO SCH (08:34)
[2018-09-09] MEDS: amLODIPine 5 MG TABLET PO SCH (08:35)
[2018-09-09] MEDS: Loratadine 10 MG TABLET PO SCH (08:35)
[2018-09-09] MEDS: Aspirin 81 MG TAB.CHEW PO SCH (08:36)
[2018-09-09] MEDS: Doxycycline 100 MG CAPSULE PO SCH ×2 (08:36→21:37)
[2018-09-09] MEDS: Glycopyrrolate 1 MG TABLET GTUBE SCH ×3 (08:36→21:38)
[2018-09-09] MEDS: Docusate Oral Soln 100 MG/10 ML UDC GTUBE SCH ×2 (08:51→21:37)
--- NOTE | 2018-09-09 10:31 | Discharge Summary ---
<Shannon So - Last Filed: 09/09/18 12:32> - NOTES TO OUTPATIENT PROVIDER Notes to Outpatient Provider: Mr Busby was admitted for unresponsiveness with extensive work up that revealed pseudomonas sepsis from suspected pna,uti and cellulitis. ID team and Palliaitve care followed along with him. Levaquin to complete a 14 day course (through 09/14/18) and doxycycline to complete a 10 day course (through 09/10/18). Neuro work up was negative. He has a trach and peg and family has decided to take him home with Home health care. Follow up with PCP and ID. Monitor renal function and for drug toxicity outpatient. Date of Encounter: 09/09/18 - Discharge Diagnosis (1) Pneumonia Status: Acute Qualifiers: Pneumonia type: due to Pseudomonas Laterality: left Lung location: lower lobe of lung Qualified Code(s): J15.1 - Pneumonia due to Pseudomonas (2) S/P AAA (abdominal aortic aneurysm) repair Status: Chronic (3) Hypertension Status: Chronic Qualifiers: Hypertension type: essential hypertension Qualified Code(s): I10 - Essential (primary) hypertension (4) DVT prophylaxis Status: Acute (5) Acute metabolic encephalopathy Status: Acute (6) Diabetes Status: Chronic Qualifiers: Diabetes mellitus type: type 2 Diabetes mellitus residential insulin use: with terminal makeup operator use Diabetes mellitus complication status: with unspecified complications Qualified Code(s): E11.8 - Type 2 diabetes mellitus with unspecified complications; Z79.4 - technician terminal and repeater (current) use of insulin (7) CKD (chronic kidney disease) stage 3, GFR 30-59 ml/min Status: Chronic (8) Sepsis Status: Resolved Qualifiers: Sepsis type: Pseudomonas Qualified Code(s): A41.52 - Sepsis due to Pseudomonas (9) Edema extremities Status: Acute (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 Busby is a 77 year old male - Time Spent with Patient Total time spent providing and/or coordinating discharge services: Time spent: Greater than 30 minutes (45 min) - Discharge Medications Prescriptions: New Doxycycline 100 mg PO BID 2 Days capsule levoFLOXacin [Levaquin] 750 mg PO DAILY 6 Days tablet Continue Docusate [Colace] 100 mg GTUBE BID Aspirin 81 mg GTUBE DAILY amLODIPine [Norvasc] 10 mg PO DAILY Esomeprazole Magnesium [Nexium] 40 mg GTUBE DAILY Leflunomide [Arava] 10 mg PO DAILY glipiZIDE [Glucotrol] 5 mg PO BID Fluticasone Furoate [Arnuity Ellipta] 1 spr NS BID Carvedilol [Coreg] 25 mg PO BID Atorvastatin [Lipitor] 80 mg PO HS Alendronate Sodium 70 mg PO QWEEK Abatacept [Orencia] 125 mg SQ QWEEK Cholecalciferol (Vitamin D3) [Vitamin D3] 2,000 unit PO DAILY Omeprazole [PriLOSEC] 40 mg PO DAILY [place]-3 Acid Ethyl Esters [Triklo] 1 gm PO BID NIFEdipine [Nifedipine ER] 60 mg PO DAILY Modafinil [Provigil] 100 mg GTUBE DAILY Loratadine [Allergy Relief] 10 mg PO DAILY Acetaminophen [Tylenol] 650 mg PO Q6H PRN PRN Reason: Mild To Moderate Pain Changed Lisinopril/Hydrochlorothiazide [Zestoretic 20-25 mg Tablet] 1 tab PO BID #30 tablet Discontinued cloNIDine HCl [CloNIDine HCl] 0.1 mg PO BID Piperacillin Sodium/Tazobactam [Piperacil-Tazobact 4.5 gm Vial] 4.5 gm IV Q8HR Nystatin [Nystatin Suspension] 500,000 units PO QID Home Medications: Abatacept [Orencia] 125 mg SQ QWEEK 09/01/18 [History] Alendronate Sodium 70 mg PO QWEEK 09/01/18 [History] Aspirin 81 mg GTUBE DAILY 09/01/18 [History] Atorvastatin [Lipitor] 80 mg PO HS 09/01/18 [History] Carvedilol [Coreg] 25 mg PO BID 09/01/18 [History] Cholecalciferol (Vitamin D3) [Vitamin D3] 2,000 unit PO DAILY 09/01/18 [History] Docusate [Colace] 100 mg GTUBE BID 09/01/18 [History] Esomeprazole Magnesium [Nexium] 40 mg GTUBE DAILY 09/01/18 [History] Fluticasone Furoate [Arnuity Ellipta] 1 spr NS BID 09/01/18 [History] Leflunomide [Arava] 10 mg PO DAILY 09/01/18 [History] Loratadine [Allergy Relief] 10 mg PO DAILY 09/01/18 [History] Modafinil [Provigil] 100 mg GTUBE DAILY 09/01/18 [History] NIFEdipine [Nifedipine ER] 60 mg PO DAILY 09/01/18 [History] [place]-3 Acid Ethyl Esters [Triklo] 1 gm PO BID 09/01/18 [History] Omeprazole [PriLOSEC] 40 mg PO DAILY 09/01/18 [History] amLODIPine [Norvasc] 10 mg PO DAILY 09/01/18 [History] glipiZIDE [Glucotrol] 5 mg PO BID 09/01/18 [History] Acetaminophen [Tylenol] 650 mg PO Q6H PRN 09/02/18 [History] Doxycycline 100 mg PO BID 2 Days capsule 09/09/18 [Rx] Lisinopril/Hydrochlorothiazide [Zestoretic 20-25 mg Tablet] 1 tab PO BID #30 tablet 09/09/18 [Rx] levoFLOXacin [Levaquin] 750 mg PO DAILY 6 Days tablet 09/09/18 [Rx] Allergies/Adverse Reactions: Allergy/AdvReac Type Severity Reaction Status Date / Time sulfamethoxazole Allergy See Verified 08/01/18 08:07 [From ] Comments trimethoprim [From ] Allergy See Verified 08/01/18 08:07 Comments morphine AdvReac See Verified 09/01/18 00:00 Comments Date of admission: 09/01/18 08:33 [facility] physician: [facility] Consults: 09/01/18 08:24 consult to marketing assistant [Consult to Nutrition] [CONS] Routine Comment: PEG feeding Consulting Provider: NUTRITION Reason for Dietary Consult: Tube Feed Start & Manage Other 09/01/18 12:46 Consult to Production Aide [CONS] Routine Reason for SW Consult: pt's wants to take patient home after discharge 09/02/18 08:50 Consult to Nurse Navigator [CONS] Routine Comment: pneumonia 09/02/18 13:12 Consult to Infectious Diseases [CONS] Routine Consulting Provider: Infectious Disease [place] Reason for Consult: pneumonia, recent pseudomonal infection s/p AAA repair Call Completed: No 09/03/18 12:58 Consult to Interpret Exam [CONS] Routine Consulting Provider: Jud Garrison Consult to Interpret Exam: Interpret EEG 09/06/18 10:56 Consult to Palliative Care [CONS] Stat Comment: Consulting Provider: Palliative Care [place] Reason for Consult: goals of treatment Call Completed: No - Constitutional Vitals: Temp Pulse Resp BP Pulse Ox 98.6 F 81 20 151/71 99 09/09/18 11:11 09/09/18 11:11 09/09/18 11:11 09/09/18 11:11 09/09/18 11:11 - Patient Status Disposition: Home Health Service Condition: Fair - Discharge Instructions Follow Up With: [facility] [Primary Care Provider] - Nicole Black MD [Partnered Physician] - Additional Instructions: Continue the antibiotics as prescribed to finish out his course for his urinary tract infection. Follow-up with infectious disease and primary care about his blood pressure and sepsis. - Diet and Activity Diet: other - Attending Attestation I examined this patient and my medical decision-making was reviewed with the Resident Physician Dr Hinojosa. I agree with the documented findings, disposition and treatment plan as described except to the extent set forth below. Mr Busby is currently admitted for acute encephalopathy as well as Pseudomonas sepsis with UTI, pna. Mr Busby is unchanged. He does not respond to voice or painful stimuli. no family present. His eyes are minimally open today. No interaction. HPI and ROS cannot be obtained due to mental status Afebrile. Bp elevated before morning meds, repeat 150s/70s and stable. gen-non responsive ent- dry lips, moist mucus membranes cv- reg rate and rhythm, normal s1,s2, no murmurs appreciated, no le edema, non pitting edema bl hands/arms lungs- ctabl, no wheezing, rhonchi or crackles, normal resp effort , trach without secretions abd- soft, no apparent tenderness, no guard or grimace to palpation, non distended neuro- non responsive to voice or painful stimuli 1. Encephalopathy - persists. Work up in past has been negative. Palliative care has assisted family, now DNR [facility] and will go home with HHC 2. Pseudomonas pneumonia and UTI- ID followed, will dc on levaquin and doxy, ID follow up 3. Sepsis resolved 4. Trach/Peg 5. HTN- cont norvasc, coreg, increased lisinopril/hctz, will require outpt fu Pt is to go home with family and HHC. He is in need of hospital bed due to need for positioning, head raise for tube feeds and frequent turning. He is in need of oxygen and set for trach as well as tube feeds as he is unresponsive and does not take anything PO. Due to trach and his inability to control secretions, he is in need of suction machine for family to suction airway. SW working on all these things Further diagnoses and plan as noted by resident Time spent on DC 45 min. Pt medical condition is unchanged. He is medically ready for dc to home and is awaiting /[facility] set up of home health needs. <Kya Hinojosa R - Last Filed: 09/09/18 13:15> - NOTES TO OUTPATIENT PROVIDER Notes to Outpatient Provider: Pt to go home with home health, a hospital bed, trach supplies, and abx. Changes to blood pressure medications include discontinuatino of clonidine and doubling the dose of the patients HCTZ/lisinopril. FU for pseudomonas sepsis is advised but family is considering hospice for patient. Currently DNR-CCA. Date of Encounter: 09/09/18 Time of Encounter: 10:26 - Discharge Diagnosis (1) Edema extremities Priority: Secondary Status: Acute (2) Acute metabolic encephalopathy Priority: Secondary Status: Acute (3) Pneumonia Priority: Secondary Status: Acute Qualifiers: Pneumonia type: due to Pseudomonas Laterality: left Lung location: lower lobe of lung Qualified Code(s): J15.1 - Pneumonia due to Pseudomonas (4) Sepsis Priority: Primary Status: Resolved Qualifiers: Sepsis type: Pseudomonas Qualified Code(s): A41.52 - Sepsis due to Pseudomonas (5) Cellulitis Priority: Secondary Status: Resolved Qualifiers: Site of cellulitis: extremity Laterality: right Qualified Code(s): L03.113 - Cellulitis of right upper limb (6) S/P AAA (abdominal aortic aneurysm) repair Priority: Secondary Status: Chronic (7) CKD (chronic kidney disease) stage 3, GFR 30-59 ml/min Priority: Secondary Status: Chronic (8) Diabetes Priority: Secondary Status: Chronic Qualifiers: Diabetes mellitus type: type 2 Diabetes mellitus terminal makeup operator insulin use: with residential use Diabetes mellitus complication status: with unspecified complications Qualified Code(s): E11.8 - Type 2 diabetes mellitus with unspecified complications; Z79.4 - assisted (current) use of insulin (9) Hypertension Priority: Secondary Status: Chronic Qualifiers: Hypertension type: essential hypertension Qualified Code(s): I10 - Essential (primary) hypertension Hospital course: Mr. Busby is a 77 year old male with past medical history of metabolic encephalopathy who is recently treated at [facility] for a AAA graft complication and was discharged to an extended care facility for pseudomonas sepsis. Once received at the extended care facility it was determined that he had increased difficulty in breathing and was sent to the emergency department. He was diagnosed with pneumonia in the emergency department and it was presumed that this was due to his pseudomonal infection. Zosyn was continued and vancomycin was added on. He was found to have a UTI which eventually resulted with pseudomonas sensitive to Levaquin. The patient's mental status did not improve throughout his stay here but his breathing did become easier and his vital signs returned to normal. Lab work also return to baseline for him. Palliative care began speaking with the family and the decision was ultimately made to change the patient from full code to DNR CCA. Family considered hospice care but made the decision to wait and see if the patient would recover from his encephalopathy and instead they will take him home on home health care. He will be sent home with a hospital bed to assist movement of him, oxygen for his new trach, and other supplies to help take care of him. He will also be sent home with Levaquin daily until 09/14 and doxycycline until 09/10 to finish a course of antibiotics. Patient will be discharged home in the same condition as to when he was discharged from [facility]. Discharge discussed with: family, social work, case management - Time Spent with Patient Total time spent providing and/or coordinating discharge services: Date of admission: 09/01/18 08:33 [facility] care physician: [facility] Consults: 09/01/18 08:24 consult to marketing assistant [Consult to Nutrition] [CONS] Routine Comment: PEG feeding Consulting Provider: NUTRITION Reason for Dietary Consult: Tube Feed Start & Manage Other 09/01/18 12:46 Consult to Production Aide [CONS] Routine Reason for SW Consult: pt's wants to take patient home after discharge 09/02/18 08:50 Consult to Nurse Navigator [CONS] Routine Comment: pneumonia 09/02/18 13:12 Consult to Infectious Diseases [CONS] Routine Consulting Provider: Infectious Disease [place] Reason for Consult: pneumonia, recent pseudomonal infection s/p AAA repair Call Completed: No 09/03/18 12:58 Consult to Interpret Exam [CONS] Routine Consulting Provider: Jud Garrison Consult to Interpret Exam: Interpret EEG 09/06/18 10:56 Consult to Palliative Care [CONS] Stat Comment: Consulting Provider: Palliative Care [place] Reason for Consult: goals of treatment Call Completed: No Discharging clinician: Kya Hinojosa - Constitutional Vitals: Temp Pulse Resp BP Pulse Ox 97.8 F 88 19 190/82 98 09/09/18 07:19 09/09/18 07:19 09/09/18 07:23 09/09/18 07:19 09/09/18 07:23 General appearance: Present: A&O X 0, no acute distress Exam: Constitutional - Comfortable. Does not open eyes to name. H - normocephalic EENT - Mucus membranes dry Neck - No palpable LAD Cardio - RRR. Occ PVC on monitor. Not tachycardic Respiratory - Scattered rhonchi bilaterally. No wheeze or rales. Abdomen - Soft. Does not appear tender. No mass felt. Extremities - Nonpitting edema noted throughout. Stable edema. Skin - No visible rash. Warm and dry. Neuro - Not alert at this time. - Patient Status Functional capacity at discharge: bed bound Overall status at discharge: patient is not back to baseline - Diet and Activity Activity: as per physical therapy Diet: other
[2018-09-10] MEDS: Insulin LISPRO 300 UNITS/3 ML VIAL SQ SCH ×5 (00:51→18:49)
[2018-09-10] MEDS: *HR* Heparin 5,000 UNIT/ML VIAL SQ SCH ×2 (05:37→18:49)
[2018-09-10] MEDS: MOMETASONE FUROATE 100 mcg Inhaler IH SCH (07:17)
--- NOTE | 2018-09-10 08:11 | Internal Med Progress Note ---
<Kya Hinojosa R - Last Filed: 09/10/18 09:56> Hospitalist Progress Note - Encounter Date of Encounter: 09/10/18 Time of Encounter: 08:11 - Subjective Interval History: Patient with no changes overnight. He was discharged yesterday but is awaiting trach supplies from the [place] and was not sent home. - Exam Vitals: Temp Pulse Resp BP Pulse Ox 97.5 F L 86 20 179/81 97 09/10/18 07:54 09/10/18 07:54 09/10/18 07:54 09/10/18 07:54 09/10/18 07:54 Exam: Constitutional - Comfortable. Does not open eyes to name. H - normocephalic EENT - Mucus membranes dry Neck - No palpable LAD Cardio - RRR. Occ PVC on monitor. Not tachycardic Respiratory - Scattered rhonchi bilaterally. No wheeze or rales. Abdomen - Soft. Does not appear tender. No mass felt. Extremities - Nonpitting edema noted throughout. Stable edema. Skin - No visible rash. Warm and dry. Neuro - Not alert at this time. - Assessment and Plan (1) Edema extremities Current Visit: Yes Status: Acute Assessment and Plan: Stable edema, unchanged Albumin helped decrease peripheral edema Continue to monitor (2) Acute metabolic encephalopathy Current Visit: Yes Status: Acute Assessment and Plan: Encephalopathy unchanged at this time. Stopped any meds that may be contributing. Work up has been negative at [facility] and EEG normal here. (3) Pneumonia Current Visit: Yes Status: Acute Assessment and Plan: Pt with prior hx of Pseudomonas pneumonia. Zosyn/vanc will be de-escalated to doxy/levaquin per ID recs Further abx plan per ID service. (4) Sepsis Current Visit: Yes Status: Resolved Assessment and Plan: Pt admitted with sepsis presumed due to Pseudomonas (due to recent history). Vanc and Zosyn for total of 8 days Switch to levaquin (through 09/14) and doxy (through 09/10) Resolved at this time. (5) Cellulitis Current Visit: Yes Status: Resolved Assessment and Plan: Resolved (6) S/P AAA (abdominal aortic aneurysm) repair Current Visit: Yes Status: Chronic Assessment and Plan: s/p recent repair of leaking AAA graft No acute issues. (7) CKD (chronic kidney disease) stage 3, GFR 30-59 ml/min Current Visit: Yes Status: Chronic Assessment and Plan: Creatinine has improved and is now wnl at 1.06. Continue to monitor. (8) Diabetes Current Visit: Yes Status: Chronic Assessment and Plan: Fair control at this time. Continue same plan of care. (9) Hypertension Current Visit: Yes Status: Chronic Assessment and Plan: BP uncontrolled. Med adjustments made yesterday and will be adjusted more if does not continue to improve. Stopping Clonidine - has SPORTS COORDINATOR acting properties DVT Prophylaxis: SQ Heparin - Time Spent with Patient Total time spent is greater than 50% in coordination of care (as documented) at patient's floor/unit and/or counseling patient: Internal Medicine: Result - Labs CBC & Chem 7: 09/09/18 04:58 09/09/18 04:58 Consult Discharge Plan - Plan Additional Instructions: Continue the antibiotics as prescribed to finish out his course for his urinary tract infection. Follow-up with infectious disease and primary care about his blood pressure and sepsis. [facility]errals: [facility] [Primary Care Provider] - Nicole Black MD [Partnered Physician] - Prescriptions: Doxycycline 100 mg PO BID 2 Days capsule levoFLOXacin [Levaquin] 750 mg PO DAILY 6 Days tablet Lisinopril/Hydrochlorothiazide [Zestoretic 20-25 mg Tablet] 1 tab PO BID #30 tablet <Shannon So - Last Filed: 09/10/18 13:15> Hospitalist Progress Note - Encounter Date of Encounter: 09/10/18 - Exam Vitals: Temp Pulse Resp BP Pulse Ox 98.4 F 81 19 156/73 97 09/10/18 11:56 09/10/18 11:56 09/10/18 11:56 09/10/18 11:56 09/10/18 11:56 - Assessment and Plan (1) Pneumonia Current Visit: Yes Status: Acute (2) S/P AAA (abdominal aortic aneurysm) repair Current Visit: Yes Status: Chronic (3) Hypertension Current Visit: Yes Status: Chronic (4) DVT prophylaxis Current Visit: Yes Status: Acute (5) Acute metabolic encephalopathy Current Visit: Yes Status: Acute (6) Diabetes Current Visit: Yes Status: Chronic (7) CKD (chronic kidney disease) stage 3, GFR 30-59 ml/min Current Visit: Yes Status: Chronic (8) Sepsis Current Visit: Yes Status: Resolved (9) Edema extremities Current Visit: Yes Status: Acute 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 (11) Chronic hypoxemic respiratory failure Current Visit: Yes Status: Chronic (12) UTI (urinary tract infection) Current Visit: Yes Status: Acute - Time Spent with Patient Total time spent is greater than 50% in coordination of care (as documented) at patient's floor/unit and/or counseling patient: Internal Medicine: Result - Labs CBC & Chem 7: 09/09/18 04:58 09/09/18 04:58 - Attending Attestation I examined this patient and my medical decision-making was reviewed with the Resident Physician Dr Hinojosa. I agree with the documented findings, disposition and treatment plan as described except to the extent set forth below. Mr Busby is currently admitted for acute encephalopathy as well as Pseudomonas sepsis with UTI, pna. He has had no change in medical ocndition today and remains stable for dc to home with family and HHC Mr Busby is unchanged. He does not respond to voice or painful stimuli. no family present. RN at bedside. unable to obtaine hpi and ros given mentation afebrile. morning bp elevated and down to acceptable bp after morning meds. afternoon vital signs inaccurately state he is on high flow. This was with breathing treatment. he has had no change in o2 requirements gen-non responsive ent- dry lips, moist mucus membranes cv- reg rate and rhythm, normal s1,s2, no murmurs appreciated lungs- course bs, no wheezing, or crackles, normal resp effort , trach without minimal secretions neuro- non responsive to voice or painful stimuli 1. Encephalopathy - persists. Work up in past has been negative. Palliative care has assisted family, now DNR [facility] and will go home with HHC 2. Pseudomonas pneumonia and UTI- ID followed, will dc on levaquin and doxy, ID follow up 3. Sepsis resolved 4. Trach/Peg 5. HTN- cont norvasc, coreg, increased lisinopril/hctz, will require outpt fu for further adjustments Pt is to go home with family and HHC. He is in need of hospital bed due to need for positioning, head raise for tube feeds and frequent turning. He is in need of oxygen and set for trach as well as tube feeds as he is unresponsive and does not take anything PO. Due to trach and his inability to control secretions, he is in need of suction machine for family to suction airway. SW working on all these things dc to home and is awaiting SW /[facility] set up of home health needs. <Kya Hinojosa - Last Filed: 09/10/18 09:56> (3) Pneumonia Qualifiers: Pneumonia type: due to Pseudomonas Laterality: left Lung location: lower lobe of lung Qualified Code(s): J15.1 - Pneumonia due to Pseudomonas (4) Sepsis Qualifiers: Sepsis type: Pseudomonas Qualified Code(s): A41.52 - Sepsis due to Pseudomonas (5) Cellulitis Qualifiers: Site of cellulitis: extremity Laterality: right Qualified Code(s): L03.113 - Cellulitis of right upper limb (8) Diabetes Qualifiers: Diabetes mellitus type: type 2 Diabetes mellitus skilled nursing insulin use: with rodent exterminator use Diabetes mellitus complication status: with unspecified complica tions Qualified Code(s): E11.8 - Type 2 diabetes mellitus with unspecified complications; Z79.4 - nursing home (current) use of insulin (9) Hypertension Qualifiers: Hypertension type: essential hypertension Qualified Code(s): I10 - Essential (primary) hypertension <Shannon So M - Last Filed: 09/10/18 13:15> (1) Pneumonia Qualifiers: Pneumonia type: due to Pseudomonas Laterality: left Lung location: lower lobe of lung Qualified Code(s): J15.1 - Pneumonia due to Pseudomonas (3) Hypertension Qualifiers: Hypertension type: essential hypertension Qualified Code(s): I10 - Essential (primary) hypertension (6) Diabetes Qualifiers: Diabetes mellitus type: type 2 Diabetes mellitus rodent exterminator insulin use: with skilled nursing use Diabetes mellitus complication status: with unspecified complications Qualified Code(s): E11.8 - Type 2 diabetes mellitus with unspecified complications; Z79.4 - rodent exterminator (current) use of insulin (8) Sepsis Qualifiers: Sepsis type: Pseudomonas Qualified Code(s): A41.52 - Sepsis due to Pseudomonas (12) UTI (urinary tract infection) Qualifiers: Urinary tract infection type: catheter-associated UTI Indwelling urinary catheter type: indwelling urethral catheter Encounter type: subsequent encounter Qualified Code(s): T83.511D - Infection and inflammatory reaction due to indwelling urethral catheter, subsequent encounter; N39.0 - Urinary tract infection, site not specified
[2018-09-10] MEDS: Docusate Oral Soln 100 MG/10 ML UDC GTUBE SCH (10:13)
[2018-09-10] MEDS: Doxycycline 100 MG CAPSULE PO SCH (10:13)
[2018-09-10] MEDS: Glycopyrrolate 1 MG TABLET GTUBE SCH ×2 (10:13→18:49)
[2018-09-10] MEDS: Loratadine 10 MG TABLET PO SCH (10:13)
[2018-09-10] MEDS: levoFLOXacin 750 MG TABLET PO SCH (10:13)
[2018-09-10] MEDS: amLODIPine 5 MG TABLET PO SCH (10:14)
[2018-09-10] MEDS: Aspirin 81 MG TAB.CHEW PO SCH (10:14)
[2018-09-10 16:41] VITALS: BP 172/73
== END 2018-09-10 20:10 | disposition home health service (06) | DRG 698 ==
LOC: EMEROOARM 23:47 → ICNU 09-01 08:33 → SUATTDRO 09-01 08:33 → ICNU 09-01 11:15 → 2ANU 09-05 13:12
PROVIDERS: ADMIT Internal Medicine; ATTEND Internal Medicine